=== PATIENT | female | born 1950 | race Caucasian/White ===

== ENCOUNTER 2016-08-23 07:53 | Emergency (ER) | payer OTHER ==
[2016-08-23 09:50] VITALS: BP 154/80
--- NOTE | 2016-08-23 09:57 | UC ---
Fabio Hollingsworth Michael, scribed for Leticia Villanueva DO on 08/23/16 at 0908 . General HPI - HPI Summary HPI Summary: 65 y/o female comes to [facility] presenting with multiple sx that started suddenly one day ago. The pt reports that she has myalgia especially affecting her back and bilateral LE, chills, fatigued, nasal congestion, sinus congestion , and non-productive cough that is not painful. She also states, one week ago, that she suddenly became dizzy, nausea, and diaphoretic. The pt notes that those sx are not currently present. She denies ear ache, n/v/d, and CP. The PMHx is significant for osteoarthritis, DM, and a heart murmur. The pt works at [employer], and her colleagues and students have had sinus infections and influenza. - History of Current Complaint Chief Complaint: UCRespiratory Stated Complaint: SORE THROAT COUGH Time Seen by Provider: 08/23/16 09:04 Hx Obtained From: Patient, Medical Records Onset/Duration: Sudden Onset, Lasting Days, Still Present Timing: Constant Onset Severity: Moderate Current Severity: Moderate Pain Location at: back and bilateral LE Character: ache Associated Signs & Symptoms: Positive: Cough - mild, Headache, Other - negative- ear ache, n/v/d, dizzy, sob and CP positive- myalgia, nasal congestion, chills, fatigued, sinus congestion, non-productive cough.. Negative: Abdominal Pain, Back Pain, Confusion, Chest Pain, Dizziness, Diarrhea, Dysuria, Diaphoresis, Fever, Hematemesis, Nausea, SOB, Vomiting, Wheezing, Weakness - Allergy/Home Medications Allergies/Adverse Reactions: Allergies Allergy/AdvReac Type Severity Reaction Status Date / Time Iodinated Contrast Media Allergy Mild Itching Verified 08/23/16 08:18 [IV CONTRAST DYE] Naproxen [From Anaprox] Allergy Mild Itching Verified 08/23/16 08:18 Penicillins Allergy Mild Itching Verified 08/23/16 08:18 Ibandronic Acid Allergy Unknown Verified 08/23/16 08:18 Reaction Details Home Medications: Home Medications Insulin GLARGINE(*) [Lantus(*)] 60 unit SUBCUT DAILY 08/23/16 [History Confirmed 08/23/16] PMH/Surg Hx/FS Hx/Imm Hx Endocrine History Of: Reports: Diabetes Denies: Thyroid Disease, Hyperthyroidism, Hypothyroidism Cardiovascular History Of: Reports: Cardiac Disorders - HEART MURMUR, Hypertension, Deep Vein Thrombosis Respiratory History Of: Denies: COPD, Asthma GI/ History Of: Reports: Kidney Stones - MANY YEARS AGO X2 Denies: Ulcer Neurological History Of: Denies: TIA, Seizures Psychological History Of: Denies: Anxiety, Depression Cancer History Of: Denies: Breast Cancer - Surgical History Surgical History: Yes Surgery Procedure, Year, and Place: R knee - for torn ligament, damage cartilage (2003) at [facility]. hernia repair. hysterectomy - Family History Known Family History: Positive: Cardiac Disease, Hypertension, Diabetes - Social History Occupation: Employed Full-time Lives: With Family Alcohol Use: None Substance Use Type: None Smoking Status (MU): Former Smoker - Immunization History Most Recent Influenza Vaccination: FEB 2016 Review of Systems Constitutional: Chills, Fatigue Skin: Negative Eyes: Negative ENT: Other - nasal congestion Respiratory: Cough Cardiovascular: Negative Gastrointestinal: Negative Genitourinary: Negative Motor: Negative Neurovascular: Negative Musculoskeletal: Myalgia Neurological: Negative Psychological: Negative All Other Systems Reviewed And Are Negative: Yes Physical Exam Triage Information Reviewed: Yes Appearance: No Pain Distress, Well-Nourished, Ill-Appearing Vital Signs: Initial Vital Signs Temp 99.2 F 08/23/16 08:21 Pulse 80 08/23/16 08:21 Resp 16 08/23/16 08:21 BP 177/75 08/23/16 08:21 Pulse Ox 97 08/23/16 08:21 Vital Signs Reviewed: Yes Eyes: Positive: Conjunctiva Clear, Discharge ENT: Positive: Hearing grossly normal, Pharynx normal, Nasal congestion, Nasal drainage, TMs normal. Negative: Tonsillar swelling, Muffled/hoarse voice Neck: Positive: Supple, Nontender Respiratory: Positive: Lungs clear, Normal breath sounds, No respiratory distress, No accessory muscle use Cardiovascular: Positive: RRR. Negative: No Murmur - holosytolic murmur Musculoskeletal: Positive: Strength Intact Neurological: Positive: Alert, Muscle Tone Normal Psychological Exam: Normal Psychological: Positive: Age Appropriate Behavior Skin Exam: Normal - dry. warm. nml color. Course/Dx - Course Course Of Treatment: pt advised that dizziness nausea and sweating can all be signs of a heart attack. if she has those sx ago, pt should got to ed for evaluation. - Differential Dx - Multi-Symptom Differential Diagnoses: Other - uri Provider Diagnoses: uri Discharge - Discharge Plan Condition: Stable Disposition: HOME Referrals: Santosh Sanford MD [Primary Care Provider] - (follow up in 3-5 days if not improving) The documentation as recorded by the Fabio khan Michael accurately reflects the service I personally performed and the decisions made by , Leticia Villanueva DO.
[2016-08-23] MEDS ORDERED: Acetaminophen TAB* 325 MG PO ONE (09:59)
== END 2016-08-23 10:03 | disposition home or self-care (01) ==
LOC: UCEAST 07:53
DX: J06.9 Acute upper respiratory infection, unspecified (principal); E11.9 Type 2 diabetes mellitus without complications; Z79.4 Long term (current) use of insulin; Z88.6 Allergy status to analgesic agent; Z88.0 Allergy status to penicillin; Z91.041 Radiographic dye allergy status; Z87.891 Personal history of nicotine dependence
CPT/HCPCS: 87502; 99212; A9270-GY; G0463

== ENCOUNTER 2017-04-15 06:39 | Emergency (ER) | payer OTHER ==
[2017-04-15] MEDS ORDERED: NS 0.9% 1000 ML* 1,000 ML IV ONE (07:39)
[2017-04-15 08:01] LABS: Hematocrit 39 % (35-47); Mean Corpuscular HGB Conc 33 g/dl (31-36); Mean Corpuscular Hemoglobin 30 pg (27-31); Mean Corpuscular Volume 90 fL (80-97); Mean Platelet Volume 8 um3 (7.4-10.4); Red Blood Count 4.36 10^6/ul (4.0-5.4); Red Cell Distribution Width 12 % (10.5-15); White Blood Count 9.7 10^3/ul (3.5-10.8)
[2017-04-15 08:23] LABS: Albumin 3.6 g/dL (3.2-5.2); BUN/Creatinine Ratio 17.5 (8-20); C Reactive Protein 157.44 mg/L (< 5.00); Calcium 9.5 mg/dL (8.6-10.3); EGFR African American 120.9 (>60); Globulin 3.6 g/dL (2-4); Magnesium 1.9 mg/dL (1.9-2.7); Potassium 3.9 mmol/L (3.5-5.0); Total Bilirubin 0.5 mg/dL (0.2-1.0); Total Protein 7.2 g/dL (6.4-8.9)
--- NOTE | 2017-04-15 08:46 | RAD ---
HISTORY: Weakness COMPARISONS: May 02, 2013 VIEWS: 4: Frontal dual-energy and lateral views of the chest. FINDINGS: CARDIOMEDIASTINAL SILHOUETTE: The cardiomediastinal silhouette is normal. PIPE: The pipe are normal. PLEURA: The costophrenic angles are sharp. No pleural abnormalities are noted. LUNG PARENCHYMA: The lungs are clear. ABDOMEN: The upper abdomen is clear. There is no subphrenic gas. BONES AND SOFT TISSUES: No bone or soft tissue abnormalities are noted. OTHER: None. IMPRESSION: NO ACTIVE CARDIOPULMONARY DISEASE.
[2017-04-15] MEDS ORDERED: Insulin REGULAR(*) 1 UNITS UNIT IV PUSH ONE (09:47)
[2017-04-15] MEDS ORDERED: Insulin REGULAR(*) 1 UNITS UNIT ONE (10:21)
[2017-04-15] MEDS: NS 0.9% 1000 ML* 2,000 ML IV ONE (10:26)
[2017-04-15 11:08] LABS: Urine Bacteria 1+ (Absent); Urine Bilirubin Negative (Negative); Urine Glucose 3+(>=500 mg/dL) (Negative); Urine Nitrite Negative (Negative)
[2017-04-15 11:46] VITALS: BP 133/45
--- NOTE | 2017-04-15 18:46 | ED ---
Marco Hollingsworth Thomas, scribed for Mark Dumas MD on 04/15/17 at 0742 . Complex/Multi-Sys Presentation - HPI Summary HPI Summary: The pt is a 66 y/o F presenting to the ED c/o generalized weakness that began a week ago. She also complains of bilateral foot pain concentrated about her heels that began a week ago. This pain is worsened with ambulation and she reports I have nerve damage. The pain is rated 10/10. A week ago, the patient was seen at the [facility] and was given gabapentin, naproxen, and fioricet. The patient says she stopped taking these medications at some time in the last week. She reports a Naproxen allergy. PMHx includes DM and her blood sugars have recently been elevated. Pt additionally c/o chills, back pain, and diarrhea (one episode two days ago). Pt denies cough, rhinorrhea, sore throat, and dysuria. - History Of Current Complaint Chief Complaint: EDGeneral Time Seen by Provider: 04/15/17 07:27 Hx Obtained From: Patient Onset/Duration: Lasting Weeks - onset of symptoms one week ago, Still Present Timing: Constant Severity Currently: Moderate Location: Pain At: - bilateral feet Aggravating Factor(s): foot pain is worsened with ambulation Alleviating Factor(s): nothing alleviates symptoms Associated Signs And Symptoms: Positive: Weakness - generalized, Diarrhea, Back Pain, Other - Bilateral foot pain, elevated blood sugars, chills; NEGATIVE: rhinorrhea, sore throat.. Negative: Cough, Dysuria - Allergies/Home Medications Allergies/Adverse Reactions: Allergies Allergy/AdvReac Type Severity Reaction Status Date / Time Iodinated Contrast Media Allergy Mild Itching Verified 08/23/16 08:18 [IV CONTRAST DYE] Naproxen [From Anaprox] Allergy Mild Itching Verified 08/23/16 08:18 Penicillins Allergy Mild Itching Verified 08/23/16 08:18 Ibandronic Acid Allergy Unknown Verified 08/23/16 08:18 Reaction Details PMH/Surg Hx/FS Hx/Imm Hx Previously Healthy: No Endocrine/Hematology History: Reports: Hx Diabetes Denies: Hx Thyroid Disease Cardiovascular History: Reports: Hx Deep Vein Thrombosis, Hx Hypertension, 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 CHECKED ANNUALLY Denies: Hx Hypercholesterolemia, Hx Peripheral Vascular Disease Respiratory History: Denies: Hx Asthma, Hx Chronic Obstructive Pulmonary Disease (COPD), Other Respiratory Problems/Disorders GI History: Reports: Hx Gastroesophageal Reflux Disease Denies: Hx Ulcer, Other GI Disorders History: Reports: Hx Kidney Stones - MANY YEARS AGO X2 Musculoskeletal History: Denies: Hx Arthritis, Hx Osteoporosis, Other Musculoskeletal History Sensory History: Denies: Hx Cataracts, Hx Contacts or Glasses, Hx Glaucoma, Hx Hearing Aid Opthamlomology History: Denies: Hx Cataracts, Hx Contacts or Glasses, Hx Glaucoma Neurological History: Denies: Hx Headaches, Hx Seizures, Hx Transient Ischemic Attacks (TIA), Other Neuro Impairments/Disorders Psychiatric History: Denies: Hx Anxiety, Hx Depression - Cancer History Hx Chemotherapy: No Hx Radiation Therapy: No - Surgical History Surgery Procedure, Year, and Place: R knee - for torn ligament, damage cartilage (2003) at [facility]. hernia repair. hysterectomy Hx Anesthesia Reactions: No Infectious Disease History: No Infectious Disease History: Denies: Hx Clostridium Difficile, Hx Hepatitis, Hx Human Immunodeficiency Virus (HIV), Hx of Known/Suspected MRSA, Hx Shingles, Hx Tuberculosis, Hx Known/ Suspected VRE, Hx Known/Suspected VRSA, History Other Infectious Disease, Traveled Outside the [place] in Last 30 Days - Family History Known Family History: Positive: Cardiac Disease, Hypertension, Diabetes - Social History Alcohol Use: None Hx Substance Use: No Substance Use Type: Reports: None Hx Tobacco Use: Yes Smoking Status (MU): Former Smoker Review of Systems Positive: Chills Negative: Sore Throat, Nasal Discharge Negative: Cough Positive: Diarrhea Negative: dysuria Positive: Other - Bilateral foot pain, back pain Positive: Weakness - generalized All Other Systems Reviewed And Are Negative: Yes Physical Exam - Summary Physical Exam Summary: VITAL SIGNS: Reviewed. GENERAL: Patient is a well-developed and nourished female who is lying comfortable in the stretcher. Patient is not in any acute respiratory distress. HEAD AND FACE: No signs of trauma. No ecchymosis, hematomas or skull depressions. No sinus tenderness. EYES: PERRLA, EOMI x 2, No injected conjunctiva, no nystagmus. EARS: Hearing grossly intact. Ear canals and tympanic membranes are within normal limits. MOUTH: Oropharynx within normal limits. NECK: Supple, trachea is midline, no adenopathy, no JVD, no carotid bruit, no c- spine tenderness, neck with full ROM. CHEST: Symmetric, no tenderness at palpation LUNGS: Clear to auscultation bilaterally. No wheezing or crackles. CVS: Regular rate and rhythm, S1 and S2 present, no murmurs or gallops appreciated. ABDOMEN: Soft, non-tender. No signs of distention. No rebound no guarding, and no masses palpated. Bowel sounds are normal. EXTREMITIES: FROM in all major joints, no edema, no cyanosis or clubbing. NEURO: Alert and oriented x 3. No acute neurological deficits. Speech is normal and follows commands. SKIN: Dry and warm Triage Information Reviewed: Yes Vital Signs On Initial Exam: Initial Vitals Temp Pulse Resp BP Pulse Ox 98.5 F 95 16 139/59 97 04/15/17 06:48 04/15/17 06:48 04/15/17 06:48 04/15/17 06:48 04/15/17 06:48 Vital Signs Reviewed: Yes - [place] Coma Scale Coma Scale Total: 15 Diagnostics - Vital Signs Vital Signs Temp Pulse Resp BP Pulse Ox 04/15/17 06:48 98.5 F 95 16 139/59 97 - Laboratory Result Diagrams: 04/15/17 07:48 04/15/17 07:48 Lab Statement: Any lab studies that have been ordered have been reviewed, and results considered in the medical decision making process. - Radiology CXR Xray Interpretation: No Acute Changes - No active cardiopulmonary disease. ED physician has reviewed this report and agrees. Radiology Interpretation Completed By: Radiologist - EKG 08:05 Cardiac Rate: NL - 96 BPM EKG Rhythm: Sinus Rhythm EKG Interpretation: Normal axis. Complex Multi-Symp Course/Dx Assessment/Plan: The pt is a 66 y/o F presenting to the ED c/o generalized weakness that began a week ago. She also complains of bilateral foot pain concentrated about her heels that began a week ago. This pain is worsened with ambulation and she reports I have nerve damage. The pain is rated 10/10. A week ago, the patient was seen at the [facility] ED and was given gabapentin, naproxen, and fioricet. The patient says she stopped taking these medications at some time in the last week. She reports a Naproxen allergy. PMHx includes DM and her blood sugars have recently been elevated. Pt additionally c/o chills, back pain, and diarrhea (one episode two days ago). Pt denies cough, rhinorrhea , sore throat, and dysuria. Test results are without significant abnormality except glucose 401, CRP 157.44. UA is contaminated. In the ED course, the patient was given approximately 3L of fluids, 10 units of insulin, and the sugar decreased to 216. At this point, the patient reports feeling better and her symptoms have resolved. Therefore, at this time she will be discharged home with follow up by primary care. The patient is hemodynamically stable and alert and oriented x 3. - Diagnoses Provider Diagnoses: Weakness, Hyperglycemia Discharge - Discharge Plan Condition: Stable Disposition: HOME Patient Education Materials: Weakness (ED), Diabetic Hyperglycemia (ED) Forms: *Work Release Referrals: Santosh Sanford MD [Primary Care Provider] - 3 Days Additional Instructions: Follow up with your primary care provider in 2-3 days. Return to the emergency department for any new or worsening symptoms. The documentation as recorded by the Marco khan Thomas accurately reflects the service I personally performed and the decisions made by , Mark Dumas MD.
--- NOTE | 2017-04-18 08:56 | ED ---
Progress - Progress Note Progress Note: Pt's urine cx reveals >100,000 strep group B. Note yesterday from Nuria Fung PA-C reveals multiple attempts to contact pt at home to notify her bactrim had been sent to her pharmacy. (Pt has PCN allergy so this is best alternative and pt's renal fxn is intact). Pt's d/c summary reveals f/u w/ PCP was initiated - results should be forwarded to PCP is pt signed release. Will also mail letter to pt's house. Melinda animal warden, aware. Course/Dx - Diagnoses Provider Diagnoses: Weakness, Hyperglycemia
== END 2017-04-15 13:19 | disposition home or self-care (01) ==
LOC: ED 06:39
DX: R53.1 Weakness (principal); E11.65 Type 2 diabetes mellitus with hyperglycemia; R19.7 Diarrhea, unspecified; M54.9 Dorsalgia, unspecified; Z86.79 Personal history of other diseases of the circulatory system
CPT/HCPCS: 36415; 71020; 80053; 81003; 81015; 82947; 83735; 85025; 86140; 87077; 87086; 93005; 96360; 99283

== ENCOUNTER 2019-01-03 13:18 | Emergency (ER) | payer OTHER ==
[2019-01-03] MEDS ORDERED: NS 0.9% 1000 ML** 1,000 ML IV ONE ×2 (14:05→15:05)
--- NOTE | 2019-01-03 14:14 | ED ---
Complex/Multi-Sys Presentation - HPI Summary HPI Summary: 68 year old F brought in by ambulance to [facility] from Dr. Sanford's office with a chief complaint of light headedness and hyperglycemia since near syncopal episode this morning. Patient states that she again felt lightheaded while in the restroom. No chest pain or shortness of breath, no dizziness. Patient did not pass out. Patient additionally reports generalized fatigue. Patient reports recent weight loss (less than 10 pounds). She also reports she has a history of chronic UTIs although she denies dysuria, abdominal pain or fevers at this time . Patient has Hx diabetes for which she is taking 42 Lantus at night and 15 lispro three times a day after meals. Patient states her blood glucose levels are normally 400. Last year, patient was admitted to [facility] for multiple infections including a UTI. Patient normally uses a walker or cane. - History Of Current Complaint Chief Complaint: EDDiabeticProb Time Seen by Provider: 01/03/19 14:02 Hx Obtained From: Patient Onset/Duration: Lasting Hours, Still Present Timing: Constant Severity Currently: None Aggravating Factor(s): None Alleviating Factor(s): None Associated Signs And Symptoms: Positive: Other - weakness and heaviness in bilateral legs, recent weight loss; NEGATIVE: chest pain, shortness of breath, dysuria, vomiting, cough - Allergies/Home Medications Allergies/Adverse Reactions: Allergies Allergy/AdvReac Type Severity Reaction Status Date / Time Iodinated Contrast- Oral and Allergy Rash Verified 01/03/19 14:08 IV Dye naproxen Allergy Rash Verified 01/03/19 14:08 Penicillins Allergy Rash Verified 01/03/19 14:08 ibandronic acid Allergy Unknown Uncoded 01/03/19 14:09 Reaction Details Home Medications: Home Medications Docusate CAP* [Colace Cap*] 100 mg PO BID PRN 01/03/19 [History Confirmed ] Gabapentin CAP(*) [Neurontin 300 CAP(*)] 300 mg PO TID 01/03/19 [History Confirmed 01/03/19] Ramipril CAP* [Altace CAP*] 20 mg PO DAILY 01/03/19 [History Confirmed 01/03/19] Sertraline* [Zoloft*] 25 mg PO QAM 01/03/19 [History Confirmed 01/03/19] Simvastatin (NF) [Zocor (NF)] 40 mg PO DAILY 01/03/19 [History Confirmed ] PMH/Surg Hx/FS Hx/Imm Hx Endocrine/Hematology History: Reports: Hx Diabetes Denies: Hx Thyroid Disease Cardiovascular History: Reports: Hx Deep Vein Thrombosis, Hx Hypertension, 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 CHECKED ANNUALLY Denies: Hx Hypercholesterolemia, Hx Peripheral Vascular Disease Respiratory History: Denies: Hx Asthma, Hx Chronic Obstructive Pulmonary Disease (COPD), Other Respiratory Problems/Disorders GI History: Reports: Hx Gastroesophageal Reflux Disease Denies: Hx Ulcer, Other GI Disorders History: Reports: Hx Kidney Stones - MANY YEARS AGO X2, Other Problems/ Disorders - UTI Musculoskeletal History: Denies: Hx Arthritis, Hx Osteoporosis, Other Musculoskeletal History Sensory History: Denies: Hx Cataracts, Hx Contacts or Glasses, Hx Glaucoma, Hx Hearing Aid Opthamlomology History: Denies: Hx Cataracts, Hx Contacts or Glasses, Hx Glaucoma Neurological History: Denies: Hx Headaches, Hx Seizures, Hx Transient Ischemic Attacks (TIA), Other Neuro Impairments/Disorders Psychiatric History: Denies: Hx Anxiety, Hx Depression - Cancer History Hx Chemotherapy: No Hx Radiation Therapy: No - Surgical History Surgery Procedure, Year, and Place: R knee - for torn ligament, damage cartilage (2003) at [facility]. hernia repair. hysterectomy Hx Anesthesia Reactions: No Infectious Disease History: No Infectious Disease History: Denies: Hx Clostridium Difficile, Hx Hepatitis, Hx Human Immunodeficiency Virus (HIV), Hx of Known/Suspected MRSA, Hx Shingles, Hx Tuberculosis, Hx Known/ Suspected VRE, Hx Known/Suspected VRSA, History Other Infectious Disease, Traveled Outside the [place] in Last 30 Days - Family History Known Family History: Positive: Cardiac Disease, Hypertension, Diabetes - Social History Alcohol Use: None Hx Substance Use: No Substance Use Type: Reports: None Hx Tobacco Use: Yes Smoking Status (MU): Smoker, Current Status Unknown Have You Smoked in the Last Year: No Review of Systems Positive: Other - hyperglycemia. Negative: Chest Pain Negative: Shortness Of Breath, Cough Positive: Other. Negative: Vomiting Negative: dysuria Neurological: Negative, Other All Other Systems Reviewed And Are Negative: Yes Physical Exam - Summary Physical Exam Summary: Constitutional: Elderly female no acute distress Skin: Warm, Dry HENT: Normocephalic; Atraumatic, dry mucous membranes Eyes: Conjunctiva normal Neck: Musculoskeletal ROM normal neck. (-) JVD, (-) Stridor Cardio: Rhythm regular, rate normal, Heart sounds normal; Intact distal pulses; Radial pulses are 2+ and symmetric. (-) Murmur Pulmonary/Chest wall: Effort normal. (-) Respiratory distress, (-) Wheezes, (-) Rales Abd: Soft, (-) tenderness, (-) Distension, (-) Guarding, (-) Rebound Musculoskeletal: Trace swelling of the right lower extremity which she reports is chronic Lymph: (-) Cervical adenopathy Neuro: Alert, Oriented x3 Psych: Mood and affect Normal Vital Signs On Initial Exam: Initial Vitals Temp Pulse Resp BP Pulse Ox 98.9 F 85 15 124/73 93 01/03/19 13:32 01/03/19 13:32 01/03/19 13:32 01/03/19 13:32 01/03/19 13:32 Diagnostics - Vital Signs Vital Signs Temp Pulse Resp BP Pulse Ox 01/03/19 13:32 98.9 F 85 15 124/73 93 - Laboratory Result Diagrams: 01/03/19 14:16 01/03/19 14:16 Lab Statement: Any lab studies that have been ordered have been reviewed, and results considered in the medical decision making process. - EKG 1507 Cardiac Rate: NL - 79 BPM EKG Rhythm: Sinus Rhythm Summary of EKG Findings: An EKG at 15:07 reveals normal sinus rhythm [address] depressions slightly increased in V4, V5, V6 with new T waves inversions in V5, V6, II compared to previous EKG on 04/15/17. 1750 Cardiac Rate: NL - 82 BPM EKG Rhythm: Sinus Rhythm Summary of EKG Findings: Unchanged from previous EKG 01/03/19 15:07 Re-Evaluation - Re-Evaluation First Eval Re-Evaluation Time: 15:06 Comment: glucose is 483. normal gap and pH. do not suspect DKA. plan for second liter of fluids and 5 of insulin Second Eval Re-Evaluation Time: 17:20 Comment: Urine is suggestive of UTI. Will treat her with Keflex Complex Multi-Symp Course/Dx Course Of Treatment: 68-year-old female with poorly controlled diabetes as well as recurrent UTIs presents with fatigue and hyperglycemia. - Initial blood glucose greater than 400 plan for IV fluids check beta hydroxybutyrate and ABG and check urinalysis for source of infection. - Regarding fatigue will check EKG troponin CBC and CMP have her suspect this is secondary to either an infectious cause such as a UTI or her hyperglycemia. -Patient has follow-up with her doctor regarding her insulin which they are in the process of changing as she is brittle and has episodes hypo-and hyperglycemia therefore if we are able to get her blood sugar controlled here, I do not plan on changing her regimen - Diagnoses Provider Diagnoses: Hyperglycemia, Urinary tract infection Discharge - Sign-Out/Discharge Documenting (check all that apply): Patient Departure - Discharge Patient Received Moderate/Deep Sedation with Procedure: No - Discharge Plan Condition: Stable Disposition: HOME Prescriptions: Cephalexin CAP* [Keflex CAP*] 500 mg PO BID 5 Days #10 cap Patient Education Materials: Urinary Tract Infection in Women (ED), Diabetic Hyperglycemia (ED) Forms: *Work Release Referrals: Santosh Sanford MD [Primary Care Provider] - 2 Days Additional Instructions: Follow up with your primary care provider in 2 days. Call your junior art director tomorrow 01/04/19 regarding your blood sugar. Return to the Emergency Department for fever, worsening abdominal pain, or if you are concerned. - Billing Disposition and Condition Condition: STABLE Disposition: Home - Attestation Statements Document Initiated by Maureen: Yes Documenting Scribe: Marisa Mays Provider For Whom Maureen is Documenting (Include Credential): Joe Samano MD Scribe Attestation: I, Marisa Mays, scribed for Joe Samano MD on 01/03/19 at 2225. Scribe Documentation Reviewed: Yes Provider Attestation: The documentation as recorded by the Marisa khan accurately reflects the service I personally performed and the decisions made by me, Joe Samano MD Status of Scrleonor Document: Viewed
[2019-01-03 14:26] LABS: ABS Eosinophils 0.1 10^3/ul (0-0.6); ABS Lymphocytes 1.9 10^3/ul (1.0-4.8); ABS Monocytes 0.6 10^3/ul (0-0.8); ABS Neutrophils 4.6 10^3/ul (1.5-7.7); Eosinophil % 0.7 %; Hematocrit 37 % (35-47); Hemoglobin 12.7 g/dL (12.0-16.0); Lymphocyte % 26.5 %; Mean Corpuscular HGB Conc 34 g/dL (31-36); Mean Corpuscular Hemoglobin 31 pg (27-31); Mean Corpuscular Volume 89 fL (80-97); Mean Platelet Volume 7.5 fL (7.4-10.4); Platelet Count 279 10^3/uL (150-450); Red Blood Count 4.17 10^6 /uL (3.70-4.87); Red Cell Distribution Width 13 % (10-15); White Blood Count 7.2 10^3/uL (3.5-10.8)
[2019-01-03 14:44] LABS: Albumin 3.8 g/dL (3.2-5.2); Albumin/Globulin Ratio 1.3 (1-3); BUN/Creatinine Ratio 26.1 (8-20); Calcium 9.4 mg/dL (8.6-10.3); EGFR African American 101.8 (>60); EGFR Non-African American 84.1 (>60); Globulin 2.9 g/dL (2-4); Potassium 4.3 mmol/L (3.5-5.0); Total Bilirubin 0.6 mg/dL (0.2-1.0); Total Protein 6.7 g/dL (6.4-8.9); Troponin I 0.02 ng/mL (<0.04)
[2019-01-03] MEDS ORDERED: Insulin REGULAR(*) 1 UNITS UNIT SUBCUT ONE ×2 (15:05→16:29)
[2019-01-03 17:09] LABS: Urine Appearance Turbid; Urine Bacteria 1+ (Absent); Urine Bilirubin Negative (Negative); Urine Blood 1+ (Negative); Urine Color Yellow; Urine Glucose 3+(>=500 mg/dL) (Negative); Urine Ketones Negative (Negative); Urine Nitrite Positive (Negative); Urine Protein Negative (Negative); Urine Red Blood Cell 3+(>10/hpf) (Absent); Urine Specific Gravity 1.015 (1.010-1.030); Urine Squamous Epithelial Cell Present (Absent); Urine Urobilinogen Negative (Negative); Urine White Blood Cell 3+(>20/hpf) (Absent)
[2019-01-03] MEDS ORDERED: Cephalexin CAP* 500 MG PO ONE (17:25)
[2019-01-03 18:28] VITALS: BP 150/74
--- NOTE | 2019-01-05 05:58 | PN ---
Progress Note - Progress Note Date of Service: 01/05/19 Note: patient urine culture grew Klebsiella pneumonia >100,000. patient was placed on keflex.
--- NOTE | 2019-01-06 06:01 | PN ---
Progress Note - Progress Note Date of Service: 01/06/19 Note: Patient's urine culture grew Klebsiella. Patient was on Keflex which is sensitive to. No further action required.
== END 2019-01-03 18:27 | disposition home or self-care (01) ==
LOC: ED 13:18
DX: E11.65 Type 2 diabetes mellitus with hyperglycemia (principal); N39.0 Urinary tract infection, site not specified; I10 Essential (primary) hypertension; K21.9 Gastro-esophageal reflux disease without esophagitis; I38 Endocarditis, valve unspecified; Z88.0 Allergy status to penicillin; Z88.8 Allergy status to other drugs, medicaments and biological substances; Z91.041 Radiographic dye allergy status; Z79.899 Other long term (current) drug therapy; Z79.4 Long term (current) use of insulin
CPT/HCPCS: 36415; 80053; 81003; 81015; 82010; 82803; 84484; 85025; 87077; 87086; 87186; 93005; 96360; 96361; 99284; A9270-GY

== ENCOUNTER 2019-05-04 17:36 | Emergency (ER) | payer OTHER ==
--- OUTSIDE RECORDS SUMMARY | 2019-05-04 18:09 | XMS REPORT | Continuity of Care Document ---
:1950 External Reference #:[id number] Author Name AARON Hong Address [address] [place] [address] Care Team Providers Name Role Phone Maria G Best M.D. - Family Care Team Information Appliance Repairer Medicine Santosh Sanford MD - Family Medicine Care Team Information Appliance Repairer Joy Cardiology - Cardiovascular Care Team Information Appliance Repairer Disease Arnel Talbot MD - Orthopaedic Care Team Information Appliance Repairer Surgery Kristin Cooper MD - Sports Medicine Care Team Information Appliance Repairer [phone] Oskar Meraz - Urology Care Team Information Appliance Repairer [phone] Ronan Mcgee MD - Cardiovascular Care Team Information Appliance Repairer [phone] Disease Harmony Barahona DISH CARRIER - Primary Care Care Team Information Appliance Repairer [phone] Poncho Santillan MD - Gastroenterology Care Team Information Appliance Repairer Arvind Horne - Endocrinology, Diabetes & Care Team Information Appliance Repairer Metabolism Ki Michel MD - Orthopaedic Care Team Information Appliance Repairer Surgery Problems Active Problems Provider Date Type 2 diabetes mellitus Maria G Best M.D. 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 Onset: 05/04/2011 Aortic valve disorder Maria G Best M.D. Onset: 07/27/2011 Acute sinusitis Maria G Best M.D. Onset: 07/27/2011 Acute sinusitis Og Dow M.D. Onset: 08/05/2011 Adult health examination Maria G Best M.D. Onset: 12/16/2011 Gynecologic examination Maria G Best M.D. Onset: 12/16/2011 Hyperlipidemia Maria G Best M.D. Onset: 12/28/2011 Type 1 diabetes mellitus uncontrolled Santosh Sanford M.D. Onset: 03/06/2013 Gastroesophageal reflux disease Santosh Sanford M.D. Onset: 03/06/2013 Type II diabetes mellitus uncontrolled Santosh Sanford M.D. Onset: 2012 Depressive disorder Santosh Sanford M.D. Onset: 08/10/2013 Osteoporosis Eddie Wilson M.D. Onset: 07/31/2014 Atherosclerosis of artery Santosh Sanford M.D. Onset: 08/13/2014 Social History Type Date Description Comments Sex Unknown Tobacco Use Start: Unknown End: Former Cigarette Smoker 2 Quit in 1991 Unknown Packs Daily ETOH Use Never used alcohol Recreational Drug Use Denies Drug Use Tobacco Use Start: Unknown End: Patient is a former smoker Unknown Smoking Status Reviewed: 03/15/19 Patient is a former smoker Allergies, Adverse Reactions, Alerts Active Allergies Reaction Severity Comments Date Penicillin 09/20/1997 Anaprox rash 03/26/1999 Dye 05/05/2000 Ibandronic Acid Severe dizziness 08/13/2014 Medications Active Medications SIG Qnty Indications Ordering Date Provider Ozempic (0.25 Or 0.5 Samples given E10.65 Santosh Garza MG/Dose) Georgie Sanford 9 2mg/1.5ML Solution Pen-Inject Freestyle Lite Blood dx: e11.9 - check 1units Santosh Garza Glucose Monitoring blood sugar three Georgie Sanford 8 System times daily - Device last seen 08/18/17 Freestyle Lite Test dx: e11.9 - check 100units Santosh A. Strips blood sugar three Georgie Sanford 8 times daily - last seen 08/18/17 Docusate Sodium 1 by mouth twice 60caps K59.00 Tamiko 100mg a day as needed Kathe, STEAM ROOM ATTENDANT 7 Capsules constipation Lantus Solostar 60 units subq at 15units E10.65 Tamiko 100Unit/ML hs or as directed Kathe, STEAM ROOM ATTENDANT 7 Solution Pen-Inject for dose titration Pen Fabius 11/03" [id number] use 100units E10. [place] A. 31G X 8 mm with eliseo Sanford M.D. 6 Misstacy kwikpen three times daily or as directed Dx: E10. Lancets Ultra Fine test qid 1Box E10. [place] A. Miguel Sanford M.D. 6 Humalog Kwikpen 25 units three 1box E10.65 Tamiko 100Unit/ML times a day Kathe, STEAM ROOM ATTENDANT 5 Solution Pen-Inject before meals Hydrochlorothiazide 1 by mouth every 30tabs I10 Tamiko 25mg day Kathe, STEAM ROOM ATTENDANT 5 Tablets Simvastatin 1 by mouth every 30tabs Z13.220 Tamiko 40mg Tablets day Kathe, STEAM ROOM ATTENDANT 4 Sertraline HCL 1 by mouth every 30tabs F32.9 Tamiko 25mg Tablets morning Kathe, STEAM ROOM ATTENDANT 3 Ramipril take 2 capsules 60caps I10 Tamiko 10mg Capsules by mouth once Kathe, STEAM ROOM ATTENDANT 1 daily Pioglitazone HCL 1 by mouth every 90tabs [place] A. 15mg Tablets day Georgie Sanford 0 Omeprazole 1 by mouth every Unknown [address] day 0 Immunizations CPT Code Status Date Vaccine Lot # [id number] Given 02/10/2018 High-Dose, Influenza Virus Vacccine-fluzone 65 and older 37593 Given 02/28/2017 Influenza Vac, Quadriv[place], [place] [address] Given 03/06/2016 High-Dose, Influenza Virus Vacccine-fluzone 65 and older 95099 Given 02/05/2015 Zostivax 44908 Given 02/05/2015 High-Dose, Influenza Virus Vacccine-fluzone 65 and older 10497 Given 03/07/2013 DO Not Use Split Influenza Virus Vaccine 05443 Given 04/21/2012 DO Not Use Split Influenza Virus Vaccine [id number] 83596 Given 12/16/2011 Tdap Tetanus, W Pertussis [id number] 18123 Given 03/09/2011 DO Not Use Split Influenza Virus Vaccine 71337 Given 03/09/2011 DO Not Use Split Influenza Virus Vaccine [id number] 77150 Given 03/03/2010 DO Not Use Split Influenza Virus Vaccine [id number] 81056 Given 03/03/2010 Pneumococcal Immunization [id number] 45305 Given 07/26/2009 DO Not Use Split Influenza Virus Vaccine [id number] 13962 Given 06/10/2009 H1N1 Virus Vaccine [id number] 14057 Given 06/10/2009 H1N1 Immunization Intramuscular/Intranasal W Counseling 42148 Given 03/23/2008 DO Not Use Split Influenza Virus Vaccine [id number] 07877 Given 05/04/2007 DO Not Use Split Influenza Virus Vaccine [id number] 63163 Given 05/04/2007 DO Not Use Split Influenza Virus Vaccine [id number] 44958 Given 05/11/2005 Pneumococcal Immunization 85053 Given 05/11/2005 DO Not Use Split Influenza Virus Vaccine Vital Signs Date Vital Result Comment 03/15/2019 1:19pm BP Systolic 118 mmHg BP Diastolic 70 mmHg Heart Rate 96 /min Body Temperature 98.9 F Respiratory Rate 16 /min Height 63.5 inches 5'3.50" measured Weight 118.00 lb BMI (Body Mass Index) 20.6 kg/m2 01/31/2019 11:12am BP Systolic 140 mmHg BP Diastolic 82 mmHg Heart Rate 80 /min Body Temperature 97.9 F Respiratory Rate 24 /min O2 % BldC Oximetry 98 % Height 63.5 inches 5'3.50" measured Weight 125.00 lb BMI (Body Mass Index) 21.8 kg/m2 Results Test Date Facility Test Result H/L Range Note Laboratory test 03/15/2019 [facility] Hemoglobin A1c 14.5 % High 4.1 -5.7 finding (607)- - ([facility]) Laboratory test 01/03/2019 [facility] Point of Care 235 mg/dL High 70-100 1 finding Glucose Laboratory test 01/03/2019 [facility] Point of Care 325 mg/dL High 70-100 2 finding Glucose Urinalysis 01/03/2019 [facility] Urine Color Yellow Profile Urine Appearance Turbid Urine Specific [employer] 1.015 Normal 1.010-1.030 Urine pH 7.0 Normal 5-9 Urine Urobilinogen Negative Negative Urine Ketones Negative Negative Urine Protein Negative Negative Urine Leukocytes 3+ Abnormal Negative Urine Blood 1+ Abnormal Negative Urine Nitrite Positive Abnormal Negative Urine Bilirubin Negative Negative Urine Glucose 3+(>=500 mg/dL) Abnormal Negative Urine White Blood Cell 3+(>20/hpf) Abnormal Absent Urine Red Blood Cell 3+(>10/hpf) Abnormal Absent Urine Bacteria 1+ Abnormal Absent Urine Squamous Epithelial Cell Present Abnormal Absent Urine Culture And 01/03/2019 [facility] Urine Culture SEE RESULT 3 Sensitivities BELOW CBC Auto Diff 01/03/2019 [facility] White Blood 7.2 10^3/uL Normal 3.5-10.8 Count Red Blood Count 4.17 10^6/uL Normal 3.70-4.87 Hemoglobin 12.7 g/dL Normal 12.0-16.0 Hematocrit 37 % Normal 35-47 Mean Corpuscular Volume 89 fL Normal 80-97 Mean Corpuscular Hemoglobin 31 pg Normal 27-31 Mean Corpuscular HGB Conc 34 g/dL Normal 31-36 Red Cell Distribution Width 13 % Normal 10-15 Platelet Count 279 10^3/uL Normal 150-450 Mean Platelet Volume 7.5 fL Normal 7.4-10.4 Abs Neutrophils 4.6 10^3/uL Normal 1.5-7.7 Abs Lymphocytes 1.9 10^3/uL Normal 1.0-4.8 Abs Monocytes 0.6 10^3/uL Normal 0-0.8 Abs Eosinophils 0.1 10^3/uL Normal 0-0.6 Abs Basophils 0.0 10^3/uL Normal 0-0.2 Abs Nucleated RBC 0.0 10^3/uL Granulocyte % 64.4 % Lymphocyte % 26.5 % Monocyte % 7.8 % Eosinophil % 0.7 % Basophil % 0.6 % Nucleated Red Blood Cells % 0.0 Comp Metabolic Panel 01/03/2019 [facility] Sodium 128 mmol/L Low 135-145 Potassium 4.3 mmol/L Normal 3.5-5.0 Chloride 92 mmol/L Low 101-111 Co2 Carbon Dioxide 30 mmol/L Normal 22-32 Anion Gap 6 mmol/L Normal 2-11 Glucose 483 mg/dL High 70-100 Blood Urea Nitrogen 18 mg/dL Normal 6-24 Creatinine 0.69 mg/dL Normal 0.51-0.95 BUN/Creatinine Ratio 26.1 High 8-20 Calcium 9.4 mg/dL Normal 8.6-10.3 Total Protein 6.7 g/dL Normal 6.4-8.9 Albumin 3.8 g/dL Normal 3.2-5.2 Globulin 2.9 g/dL Normal 2-4 Albumin/Globulin Ratio 1.3 Normal 1-3 Total Bilirubin 0.60 mg/dL Normal 0.2-1.0 Alkaline Phosphatase 124 U/L High 34-104 Alt 14 U/L Normal 7-52 Ast 11 U/L Low 13-39 Egfr Non- 84.1 >60 Egfr 101.8 >60 4 Laboratory test finding 01/03/2019 [facility] Troponin I 0.02 ng/mL <0.04 5 Venous Blood Gas 01/03/2019 [facility] Venous Blood pH 7.43 Normal 7.32-7.43 Venous Pco2 50 mmHg Normal 41-51 Venous Po2 46.0 mmHg High 35-45 Venous O2 Saturation 78.5 % Normal 70-80 Venous Blood Base Excess 7.5 mmol/L High 0.0-4.0 6 Venous Bicarbonate Hco3 30.2 mmol/L High 24-28 Laboratory test 01/03/2019 [facility] Beta Hydroxy 0.2 mmol/L <0.4 7 finding Butyrate Comprehensive 11/28/2018 Pearce Venus(fma) Sodium 131 mEq/L Low 134- 149 Metabolic Prof Potassium 4.0 mEq/L 3.6-5.5 Chloride 91 mEq/L Low 94-112 Carbon Dioxide 26 mEq/L 21-32 Glucose 438 mg/dL High 70-105 8 BUN 20 mg/dL 6-26 Creatinine 0.6 mg/dL 0.6-1.4 BUN/Creat Ratio 33.3 CALC 8.0-36.0 Calcium 8.6 mg/dL 8.6-10.2 Total Protein 6.2 g/dL Low 6.4-8.3 Albumin 3.9 g/dL 3.8-5.5 Globulin 2.3 g/dL 2.0-4.8 A/G Ratio 1.7 CALC 0.6-2.3 Alk. Phosphatase 121 U/L High 30-110 9 Alt (SGPT) 13 U/L 7-35 Ast (Sgot) 9 U/L 5-34 Total Bilirubin 0.5 mg/dL 0.2-1.3 GFR Non- >60 ml/min/1.73m^ >=60 GFR >60 ml/min/1.73m^ >=60 Lipid Profile 11/28/2018 Ramses Venus([facility]) Cholesterol 149 mg/dL 120- 200 Triglycerides 117 mg/dL 30-200 HDL Cholesterol 49 mg/dL 30-85 LDL (Calculated) 77 CALC 0-129 VLDL Cholesterol 23 mg/dL 0-50 HDL Risk Factor 3.0 CALC 0.0-4.4 CBC Electronic a 11/28/2018 Ramses Donovan([facility]) WBC 5.6 x10^3/UL 4.0- 10.0 RBC 4.28 x10^6/UL 3.93-6.00 HGB 13.1 g/dL 12.0-17.0 HCT 39 % 35-50 MCV 90.0 fL 80.0-95.0 MCH 30.6 pg 25.6-32.2 MCHC 34.0 g/dL 32.2-36.0 RDW-CV 11.9 % 11.6-14.4 PLT 273 x10^3/UL 163-400 MPV 9.4 fL 9.4-12.4 Kadeem# 3.28 x10^3/UL 1.56-6.13 Lymph# 1.88 x10^3/UL 1.18-3.74 [place]# 0.38 x10^3/UL 0.24-0.82 Eos # 0.0 x10^3/UL 0.0-0.5 Baso # 0.02 x10^3/UL 0.01-0.08 Kadeem% 58.4 % 34.0-70.0 Lymph % 33.5 % 20.0-52.0 [place]% 6.8 % 5.0-12.0 Eos% 0.7 % 0.7-7.0 Baso% 0.4 % 0.1-1.2 Laboratory test finding 11/28/2018 Ramses Evnus([facility]) TSH 0.65 mIU/L 0.50-6.00 1 Electrophysiology Tech: [id number] 2 Electrophysiology Tech: [id number] 3 SEE RESULT BELOW Name: SUMMER TIAN : [address]: Joe Samano MD Acct: [id number] Unit: [id number] AGE: 68 Location: ED Re01/03/19 SEX: F Status: DEP ER SPEC: [id number] WES: 01/03/19-[address] [facility] [address]: Joe Samano MD REQ: [id number] RECD: 01/03/19 STATUS: HARRIET LYNN DR: Santosh Sanford MD _ SOURCE: URINE SPDESC: ORDERED: Urine Culture Procedure Result Reported Site Urine Culture Final 01/05/19- 0907 ML Organism 1 KLEBSIELLA PNEUMONIAE Peyton Count >100,000 (Many) CFU/ML 1. KLEBSIELLA PNEUMONIAE M.I.C. RX --------- ------ Ampicillin >=32 R Cefazolin <=4 S Cefepime <=1 S Ceftriaxone <=1 S Ciprofloxacin <=0.25 S Gentamicin <=1 S Levofloxacin <=0.12 S Meropenem <=0.25 S Nitrofurantoin 64 I Tetracycline >=16 R Pipercillin/Tazobactam 32 I Trimethoprim/Sulfamethoxazole >=320 R Amoxicillin/Clavulanic Acid 8 S Aztreonam <=1 S Contact the Microbiology Department for any additional antibiotic reporting. * ML - Main Lab . END OF REPORT DEPARTMENT OF PATHOLOGY, [address] [place] [address] Maurizio Pritchard M.D. Director [facility] # [id number] 4 Because ethnic data is not always readily available, this report includes an eGFR for both -Americans and non- Americans. The National Kidney Disease Education Program (NKDEP) does not endorse the use of the MDRD equation for patients that are not between the ages of 18 and 70, are , have extremes of body size, muscle mass, or nutritional status, or are non- or non-. According to the National Kidney Foundation, irrespective of diagnosis, the stage of the disease is based on the level of kidney function: Stage Description GFR(mL/min/1.73 m(2)) 1 Kidney damage with normal or decreased GFR 90 2 Kidney damage with mild decrease in GFR 60-89 3 Moderate decrease in GFR 30-59 4 Severe decrease in GFR 15-29 5 Kidney failure <15 (or dialysis) 5 Troponin-I testing on Plasma Separator Tubes (PST) has a known false positive rate of 0.20-0.40%. All positive troponins reflex immediately to secondary confirmatory testing. Using the Strevus DxI 800 Access Immunoassay systems, the 99th percentile upper reference limit was demonstrated to be < 0.03 ng/mL. 6 Reference ranges based on room air. 7 Test Performed by: [address] [id number] RESULTS VERIFIED BY REPEAT ANALYSIS 9 RESULTS VERIFIED BY REPEAT ANALYSIS Procedures Date Code Description Status 10/07/2018 [id number] Mammogram Completed 07/22/2018 [id number] Diabetic Retinal Eye Exam Completed 01/20/2017 [id number] Colonoscopy Completed 12/30/2016 [id number] Mammogram Completed 05/12/2016 [id number] Colonoscopy Completed 08/09/2014 [id number] Mammogram Completed 09/26/2013 [id number] Bone Mineral Density Test Completed 08/08/2012 [id number] Mammogram Completed 10/20/2010 [id number] Colonoscopy Completed 01/27/2010 [id number] Mammogram Completed 10/22/2008 [id number] Mammogram Completed 06/13/2007 [id number] Mammogram Completed Medical Devices Description No Information Available Encounters Type Date Location Provider Dx Diagnosis Office Visit 01/31/2019 [facility] Office Santosh Sanford, I35.0 Nonrheumatic aortic 11:10a M.D. (valve) stenosis E10.65 Type 1 diabetes mellitus with hyperglycemia Office Visit 01/04/2019 1:30p [facility] Office Brittny Webb E10.65 Type 1 diabetes AARON Bee mellitus with hyperglycemia N39.0 Urinary tract infection, site not specified Assessments Date Code Description Provider 03/15/2019 I35.0 Nonrheumatic aortic (valve) stenosis AARON Hong 03/15/2019 E10.65 Type 1 diabetes mellitus with hyperglycemia AARON Hong 01/31/2019 I35.0 Nonrheumatic aortic (valve) stenosis Santosh Sanford M.D. 01/31/2019 E10.65 Type 1 diabetes mellitus with hyperglycemia Santosh Sanford M.D. 01/04/2019 E10.65 Type 1 diabetes mellitus with hyperglycemia AARON Hong 01/04/2019 N39.0 Urinary tract infection, site not specified AARON Hong 12/07/2018 Z00.01 Encounter for general adult medical Santosh Sanford M.D. examination with abnorma 12/07/2018 E10.65 Type 1 diabetes mellitus with hyperglycemia Santosh Sanford M.D. 12/07/2018 I70.8 Atherosclerosis of other arteries Santosh Sanford M.D. 12/07/2018 I10 Essential (primary) hypertension Santosh Sanford M.D. 12/07/2018 I35.0 Nonrheumatic aortic (valve) stenosis Santosh Sanford M.D. 12/07/2018 F32.9 Major depressive disorder, single episode, Santosh Sanford M.D. unspecified 11/28/2018 Z00.00 Encntr for general adult medical exam w/o Santosh Sanford M.D. abnormal findings Plan of Treatment Future Appointment(s):03/22/2019 2:00 pm - AARON Hong at [facility]03/15/2019 - Brittny Bee, PAI35.0 Nonrheumatic aortic (valve) stenosisComments:Surgery scheduled for April 11 to repalce aortic valve.Emergency Room for worsening fatigue, dizziness.E10.65 Type 1 diabetes mellitus with hyperglycemiaNew Medication:Ozempic (0.25 Or 0.5 MG/Dose) 2 mg/ 1.5ML - Samples givenComments:Increase Lantus to 70 unitsContinue Humalog 25 units before meals. START Ozempic as directed. 0.25 mg injection once a week for 4 weeks, then increase to 0.5 mg for 4 weeks, then increase to 1 mg once weekly. Only inject once a weekSTOP Actos/ Pioglitazone.AllComments: PCMHMedication Management Patient Understands medications he's taking? Yes Are there Barriers to Adherence? No Has the patient been asked about herbal supplements and therapies, and OTC meds? Yes Care Plan1. Patient has been queried about patient's goals/preferences and functional/ lifestyle goals at relevant visits. Yes If relevant, describe: N/A2. Treatment goals as explained to the patient: above3. Are there barriers to meeting treatment goals? No If Yes, please describe:4. Self-Management goals as described to the patient: Yes As always, we strongly encourage a healthy diet and making physical activity a part of your every day life. If you have questions about how or where to start, please contact the office.Follow up:1 week Functional Status Description No Information Available Mental Status Description No Information Available Referrals Refer to Dr Reason for Referral Status Appt Date Brodie Richter MD consult and treat jw Scheduled 01/11/2019 [facility] Endocr[facility]ology [address] [place] [id number] [phone]
--- OUTSIDE RECORDS SUMMARY | 2019-05-04 18:09 | XMS REPORT | Continuity of Care Document ---
:1950 External Reference #:[id number] Author Name AARON Hong Address [address] [place] [address] Care Team Providers Name Role Phone Maria G Best M.D. - Family Care Team Information [employer] Gunner Medicine Santosh Sanford MD - Family Medicine Care Team Information [employer] Gunner [place] [facility] - Cardiovascular Care Team Information [employer] Gunner Disease Arnel Talbot MD - Orthopaedic Care Team Information [employer] Gunner [phone] Surgery Kristin Cooper MD - Sports Medicine Care Team Information [employer] Gunner [phone] Oskar Meraz - Urology Care Team Information [employer] Gunner [phone] Ronan Mcgee MD - Cardiovascular Care Team Information [employer] Gunner [phone] Disease Harmony Barahona PILE DRIVING SUPERVISOR - Primary Care Care Team Information [employer] Gunner Poncho Santillan MD - Gastroenterology Care Team Information [employer] Gunner [phone] Arvind Horne - Endocrinology, Diabetes & Care Team Information [employer] Gunner Metabolism Ki Michel MD - Orthopaedic Care Team Information [employer] Gunner Surgery Problems Active Problems Provider Date Type 2 diabetes mellitus Maria G Best M.D. Onset: 04/07/2011 Degenerative joint disease involving Mari aG Best M.D. Onset: 2010 multiple joints Essential [...] a former smoker Unknown Smoking Status Reviewed: 03/29/19 Patient is a former smoker Allergies, Adverse Reactions, Alerts Active Allergies Reaction Severity Comments Date Penicillin 09/20/1997 Anaprox rash 03/26/1999 Dye 05/05/2000 Ibandronic Acid Severe dizziness 08/13/2014 Medications Active Medications SIG Qnty Indications Ordering Date Provider Medichoice Urethral Patient needs 60units N39.0 Santosh Garza 03/29/2019 Catheterization Tray Brand name: Ezequiel Sanford M.D. Choice. For use twice daily. Ozempic (0.25 Or 0.5 Samples given E10.65 Santosh Garza 03/15/2019 MG/Dose) Georgie Sanford 2mg/1.5ML Solution Pen-Inject Freestyle Lite Blood dx: e11.9 - check 1units Santosh Garza 10/02/2017 Glucose Monitoring blood sugar three Georgie Sanford System times daily - last Device seen 08/18/17 Freestyle Lite Test dx: e11.9 - check 100units Santosh A. 10/02/2017 blood sugar three Georgie Sanford Strips times daily Docusate Sodium 1 by mouth twice a 60caps K59.00 Tamiko 05/05/2017 100mg day as needed Kathe, DIVER PUMPER Capsules constipation Lantus Solostar 40 units subq at 15units E10.65 Tamiko 06/30/2016 hs or as directed Kathe, DIVER PUMPER 100Unit/ML Solution for dose titration Pen-Inject Pen [place] 11/03" [id number] use 100units E10.65 [place] A. 02/19/2016 31G X with eliseo Sanford M.D. 8 mm Misc kwikpen three times daily or as directed Dx: E10.65 Lancets Ultra Fine test qid 1Box E10.65 Santosh A. 02/19/2016 Georgie Sanford Misc Humalog Kwikpen 25 units three 1box E10.65 Santosh A. 06/28/2014 times a day before Georgie Sanford 100Unit/ML Solution meals Pen-Inject Simvastatin 1 by mouth every 30tabs Z13.220 Tamiko 08/10/2013 40mg day Kathe, DIVER PUMPER Tablets Sertraline HCL 1 by mouth every 30tabs F32.9 Tamiko 03/06/2013 25mg morning Kathe, DIVER PUMPER Tablets Ramipril take 2 capsules by 60caps I10 Tamiko 09/23/2010 10mg Capsules mouth once daily Kathe, DIVER PUMPER Pioglitazone HCL 1 by mouth every 90tabs [place] A. 15mg day Georgie Sanford Tablets Omeprazole 1 by mouth every Unknown 20mg day Capsules DR Metoprolol Tartrate take one tablet by Unknown mouth twice a day 50mg Tablets Immunizations CPT Code Status Date Vaccine Lot # [id number] Given 02/10/2018 High-Dose, Influenza Virus Vacccine-fluzone 65 and older 42285 Given 02/28/2017 Influenza Vac, [place], [place] [address] Given 03/06/2016 High-Dose, Influenza Virus Vacccine-fluzone 65 and older 92733 Given 02/05/2015 Zostivax 03927 Given 02/05/2015 High-Dose, Influenza Virus Vacccine-fluzone 65 and older 20869 Given 03/07/2013 DO Not Use Split Influenza Virus Vaccine 83621 Given 04/21/2012 DO Not Use Split Influenza Virus Vaccine [id number] 64954 Given 12/16/2011 Tdap Tetanus, W Pertussis [id number] 98733 Given 03/09/2011 DO Not Use Split Influenza Virus Vaccine 72511 Given 03/09/2011 DO Not Use Split Influenza Virus Vaccine [id number] 96515 Given 03/03/2010 DO Not Use Split Influenza Virus Vaccine [id number] 13741 Given 03/03/2010 Pneumococcal Immunization [id number] 76935 Given 07/26/2009 DO Not Use Split Influenza Virus Vaccine [id number] 73102 Given 06/10/2009 H1N1 Virus Vaccine [id number] 04311 Given 06/10/2009 H1N1 Immunization Intramuscular/Intranasal W Counseling 62151 Given 03/23/2008 DO Not Use Split Influenza Virus Vaccine [id number] 46067 Given 05/04/2007 DO Not Use Split Influenza Virus Vaccine [id number] 89121 Given 05/04/2007 DO Not Use Split Influenza Virus Vaccine [id number] 97301 Given 05/11/2005 Pneumococcal Immunization 74340 Given 05/11/2005 DO Not Use Split Influenza Virus Vaccine Vital Signs Date Vital Result Comment 03/29/2019 9:50am BP Systolic 148 mmHg BP Diastolic 78 mmHg Heart Rate 72 /min Body Temperature 98.6 F Respiratory Rate 18 /min Weight 119.00 lb 03/15/2019 1:19pm BP Systolic 118 mmHg BP Diastolic 70 mmHg Heart Rate 96 /min Body Temperature 98.9 F Respiratory Rate 16 /min Height 63.5 inches 5'3.50" measured Weight 118.00 lb BMI (Body Mass Index) 20.6 kg/m2 Results Test Date Facility Test Result H/L Range Note Laboratory test 03/29/2019 [facility] Glucose, Serum 321 mg/dL High 70-105 finding (607)- - (Fma/CMC/CTX) Laboratory test 03/15/2019 [facility] Hemoglobin A1c 14.5 % High 4.1 -5.7 finding (607)- - (Fma) Laboratory test [place]03/2019 [facility] [place] mg/dL High 70-100 1 finding Glucose Laboratory test 01/03/2019 [facility] [place] 325 mg/dL High 70-100 2 finding Glucose Urinalysis 01/03/2019 [facility] Urine Color Yellow Profile Urine Appearance Turbid Urine Specific [place] 1.015 Normal 1.010-1.030 Urine pH 7.0 Normal [...] Present Abnormal Absent Urine Culture And 01/03/2019 [facility]rine Culture SEE RESULT 3 Sensitivities BELOW CBC Auto Diff 01/03/2019 [facility] White Blood 7.2 10^3/uL Normal 3.5-10.8 Count [...] Cells % 0.0 Comp Metabolic Panel 01/03/2019 [facility] Sodium 128 mmol/L Low 135-145 Potassium 4.3 [...] 101.8 >60 4 Laboratory test finding 01/03/2019 [facility] Troponin I 0.02 ng/mL <0.04 5 Venous Blood Gas 01/03/2019 [facility] Venous Blood pH 7.43 Normal 7.32-7.43 Venous Pco2 50 mmHg Normal 41-51 Venous Po2 46.0 mmHg High 35-45 Venous O2 Saturation 78.5 % Normal 70-80 Venous Blood Base Excess 7.5 mmol/L High 0.0-4.0 6 Venous Bicarbonate Hco3 30.2 mmol/L High 24-28 Laboratory test 01/03/2019 [facility] Beta Hydroxy 0.2 mmol/L <0.4 7 finding [...] >60 ml/min/1.73m^ >=60 Lipid Profile 11/28/2018 Ramses Donovan([facility]) Cholesterol 149 mg/dL 120- 200 Triglycerides 117 mg/dL 30-200 HDL Cholesterol 49 mg/dL 30-85 LDL (Calculated) 77 CALC 0-129 VLDL Cholesterol 23 mg/dL 0-50 HDL Risk Factor 3.0 CALC 0.0-4.4 CBC Electronic Fma 11/28/2018 Ramses Donovan([facility]) WBC 5.6 x10^3/UL 4.0- 10.0 RBC 4.28 x10^6/UL 3.93-6.00 HGB 13.1 g/dL 12.0-17.0 HCT 39 % 35-50 MCV 90.0 fL 80.0-95.0 MCH 30.6 pg 25.6-32.2 MCHC 34.0 g/dL 32.2-36.0 RDW-CV 11.9 % 11.6-14.4 PLT 273 x10^3/UL 163-400 MPV 9.4 fL 9.4-12.4 Kadeem# 3.28 x10^3/UL 1.56-6.13 Lymph# 1.88 x10^3/UL 1.18-3.74 [place]# 0.38 x10^3/UL 0.24-0.82 Eos # 0.0 x10^3/UL 0.0-0.5 Baso # 0.02 x10^3/UL 0.01-0.08 Kadeem% 58.4 % 34.0-70.0 Lymph % 33.5 % 20.0-52.0 [place]% 6.8 % 5.0-12.0 Eos% 0.7 % 0.7-7.0 Baso% 0.4 % 0.1-1.2 Laboratory test finding 11/28/2018 Ramses Donovan([facility]ma) TSH 0.65 mIU/L 0.50-6.00 1 Paper Finisher: [id number] 2 Paper Finisher: [id number] 3 SEE RESULT BELOW Name: SUMMER TIAN : [address]: Joe Samano MD Acct: [id number] Unit: [id number] AGE: 68 Location: ED Re01/03/19 SEX: F Status: DEP ER SPEC: [id number] WES: 01/03/19-[address] [facility] [address]: Joe Samano MD REQ: [id number] RECD: 01/03/19 STATUS: HARRIET LYNN DR: Santosh Sanford MD _ SOURCE: URINE SPDESC: ORDERED: Urine Culture Procedure Result Reported Site Urine Culture Final 01/05/19- 0907 ML Organism 1 KLEBSIELLA PNEUMONIAE [place] Count >100,000 (Many) CFU/ML 1. KLEBSIELLA PNEUMONIAE [...] . END OF REPORT DEPARTMENT OF PATHOLOGY, [address] [place] [address] Maurizio Pritchard M.D. Director [facility] # [id number] 4 Because ethnic data is not always [...] immediately to secondary confirmatory testing. Using the [employer] DxI 800 Access Immunoassay systems, the 99th percentile upper reference limit was demonstrated to be < 0.03 ng/mL. 6 Reference ranges based on room air. 7 Test Performed by: [address] [address] 8 RESULTS VERIFIED BY REPEAT ANALYSIS 9 RESULTS VERIFIED BY REPEAT ANALYSIS Procedures Date Code Description Status 03/15/2019 20625 Finger Or Heel Stick Completed 10/07/2018 [id number] Mammogram Completed 07/22/2018 [id number] Diabetic Retinal Eye Exam Completed 01/20/2017 [id number] Colonoscopy Completed 12/30/2016 [id number] Mammogram Completed 05/12/2016 [id number] Colonoscopy Completed 08/09/2014 [id number] Mammogram Completed 09/26/2013 [id number] Bone Mineral Density Test Completed 08/08/2012 [id number] Mammogram Completed 10/20/2010 [id number] Colonoscopy Completed 01/27/2010 [id number] Mammogram Completed 10/22/2008 [id number] Mammogram Completed 06/13/2007 [id number] Mammogram Completed Medical Devices Description No Information Available Encounters Type Date Location Provider Dx Diagnosis Office Visit 03/15/2019 [facility] Office Brittny Bee I35.0 Nonrheumatic aortic 1:30p PA (valve) stenosis E10.65 Type 1 diabetes mellitus with hyperglycemia Office Visit 01/31/2019 11:10a [facility] Office Santosh Hollingsworth35.0 Nonrheumatic aortic Georgie Sanford (valve) stenosis E10.65 Type 1 diabetes mellitus with hyperglycemia Office Visit 01/04/2019 1:30p [facility] Office Brittny Webb E10.65 Type 1 diabetes AARON Bee mellitus with hyperglycemia N39.0 Urinary tract infection, site not specified Assessments Date Code Description Provider 03/29/2019 N39.0 Urinary tract infection, site not specified AARON Hong 03/29/2019 E11.65 Type 2 diabetes mellitus with hyperglycemia AARON Hong 03/29/2019 I35.0 Nonrheumatic aortic (valve) stenosis AARON Hong 03/15/2019 I35.0 Nonrheumatic aortic (valve) stenosis AARON [...] M.D. abnormal findings Plan of Treatment Future Appointment(s):05/15/2019 1:45 pm - AARON Hong at [facility]03/29/2019 - ROBERTA Hong39.0 Urinary tract infection, site not specifiedNew Medication:Medichoice Urethral Catheterization Tray - Patient needs Brand name: Medi Choice. For use twice daily.Comments:Continue Cefdinir 300 mg twice a day until 04/06/19 continue to Self Catheterize - Refills sent See Urologist Dr. Meraz for follow up.E11.65 Type 2 diabetes mellitus with hyperglycemiaComments:Continue humalog and Lantus as you have been and measuring. Continue Ozempic injections every . Follow up in 1 rifswY03.0 Nonrheumatic aortic (valve) stenosisComments:Surgery scheduled for April 11 to repalce aortic valve.Emergency Room for worsening fatigue, dizziness.AllComments:PCMHMedication Management Patient Understands medications he's taking? Yes Are there Barriers to Adherence? No Has the patient been asked about herbal supplements and therapies, and OTC meds? Yes Care Plan1. Patient has been queried about patient's goals/preferences and functional/lifestyle goals at relevant visits. Yes If relevant, describe: N/ A2. Treatment goals as explained to the patient: above3. Are there barriers to meeting treatment goals? No If Yes, please describe:4. Self- Management goals as described to the patient: Yes As always, we strongly encourage a healthy diet and making physical activity a part of your every day life. If you have questions about how or where to start, please contact the office. Functional Status Description No Information Available Mental Status Description No Information Available Referrals Refer to Reason for Referral Status Appt Date Brodie Richter MD consult and treat jw Scheduled 01/11/2019 [facility] Endocrinology [address] [place] [id number] [phone]
--- OUTSIDE RECORDS SUMMARY | 2019-05-04 18:09 | XMS REPORT | Continuity of Care Document ---
:1950 External Reference #:[id number] Author Name AARON Hong Address [address] [place] [address] Care Team Providers Name Role Phone Maria G Best M.D. - Family Care Team Information Intermodal Truck Driver Medicine Santosh Sanford MD - Family Medicine Care Team Information Intermodal Truck Driver [phone] [place] [facility] - Cardiovascular Care Team Information Intermodal Truck Driver Disease Arnel Talbot MD - Orthopaedic Care Team Information [employer] Truck Driver Surgery Kristin Cooper MD - Sports Medicine Care Team Information Intermodal Truck Driver Oskar Meraz - Urology Care Team Information Intermodal Truck Driver [phone] Ronan Mcgee MD - Cardiovascular Care Team Information Intermodal Truck Driver Disease Harmony Barahona TRANSITION SPECIALIST - Primary Care Care Team Information Intermodal Truck Driver Poncho Santillan MD - Gastroenterology Care Team Information Intermodal Truck Driver Arvind Horne - Endocrinology, Diabetes & Care Team Information Intermodal Truck Driver Metabolism Ki Michel MD - Orthopaedic Care Team Information Intermodal Truck Driver [phone] Surgery Problems Active Problems Provider Date Type [...] Santosh Garza 03/29/2019 Catheterization Tray Brand name: Eezquiel Sanford M.D. Choice. For use twice daily. Ozempic (0.25 Or 0.5 Samples given E10.65 Santosh Garza 03/15/2019 MG/Dose) Georgie Sanford 2mg/1.5ML Solution Pen-Inject Freestyle Lite Blood dx: e11.9 - check 1units Santosh Garza 10/02/2017 Glucose Monitoring blood sugar shira Sanford M.D. System times daily - last Device seen 08/18/17 Freestyle Lite Test dx: e11.9 - check 100units Santosh AAdamaris 10/02/2017 blood sugar three Georgie Sanford Strips times daily Docusate Sodium 1 by mouth twice a 60caps K59.00 Tamiko 05/05/2017 100mg day as needed Kathe, BAND RIPSAW OPERATOR Capsules constipation Lantus Solostar 40 units subq at 15units E10.65 Tmaiko 06/30/2016 hs or as directed Kathe, BAND RIPSAW OPERATOR 100Unit/ML Solution for dose titration Pen-Inject Pen [place] 11/03" [id number] use 100units E10.65 Santosh A. 02/19/2016 31G X with eliseo Sanford M.D. 8 mm Misc kwikpen three times daily or as directed Dx: E10.65 Lancets Ultra Fine test qid 1Box E10.65 Santosh AAdamaris 02/19/2016 Georgie Sanford Misc Humalog Kwikpen 25 units three 1box E10.65 Tamiko 06/28/2014 times a day before Kathe, BAND RIPSAW OPERATOR 100Unit/ML Solution meals Pen-Inject Simvastatin 1 by mouth every 30tabs Z13.220 Tamiko 08/10/2013 40mg day Kathe, BAND RIPSAW OPERATOR Tablets Sertraline HCL 1 by mouth every 30tabs F32.9 Tamiko 03/06/2013 25mg morning Kathe, BAND RIPSAW OPERATOR Tablets Ramipril take 2 capsules by 60caps I10 Tamiko 09/23/2010 10mg Capsules mouth once daily Kathe, BAND RIPSAW OPERATOR Pioglitazone HCL 1 by mouth every 90tabs Santosh Aleah. 15mg day Georgie Sanford Tablets Omeprazole 1 by mouth every Unknown 20mg day Capsules DR Metoprolol Tartrate take one tablet by Unknown mouth twice a day 50mg Tablets Immunizations CPT Code Status Date Vaccine Lot # [id number] Given 02/10/2018 High-Dose, Influenza Virus Vacccine-fluzone 65 and older 75023 Given 02/28/2017 Influenza Vac, [place], [place] [address] Given 03/06/2016 High-Dose, Influenza Virus Vacccine-fluzone 65 and older 59267 Given 02/05/2015 Zostivax 75822 Given 02/05/2015 High-Dose, Influenza Virus Vacccine-fluzone 65 and older 08440 Given 03/07/2013 DO Not Use Split Influenza Virus Vaccine 01054 Given 04/21/2012 DO Not Use Split Influenza Virus Vaccine [id number] 73497 Given 12/16/2011 Tdap Tetanus, W Pertussis [id number] 49818 Given 03/09/2011 DO Not Use Split Influenza Virus Vaccine 34083 Given 03/09/2011 DO Not Use Split Influenza Virus Vaccine [id number] 58420 Given 03/03/2010 DO Not Use Split Influenza Virus Vaccine [id number] 19256 Given 03/03/2010 Pneumococcal Immunization [id number] 66010 Given 07/26/2009 DO Not Use Split Influenza Virus Vaccine [id number] 49504 Given 06/10/2009 H1N1 Virus Vaccine [id number] 32181 Given 06/10/2009 H1N1 Immunization Intramuscular/Intranasal W Counseling 65020 Given 03/23/2008 DO Not Use Split Influenza Virus Vaccine [id number] 85141 Given 05/04/2007 DO Not Use Split Influenza Virus Vaccine [id number] 42584 Given 05/04/2007 DO Not Use Split Influenza Virus Vaccine [id number] 40700 Given 05/11/2005 Pneumococcal Immunization 31122 Given 05/11/2005 DO Not Use Split Influenza [...] Result H/L Range Note Laboratory test 03/15/2019 [facility] Hemoglobin A1c 14.5 % High 4.1 -5.7 finding (607)- - (Fma) Laboratory test 01/03/2019 [facility] Point of Care 235 mg/dL High 70-100 1 finding Glucose Laboratory test 01/03/2019 [facility] Point of Care 325 mg/dL High 70-100 2 finding Glucose Urinalysis 01/03/2019 [facility] Urine Color Yellow Profile Urine Appearance Turbid Urine Specific [place] 1.015 Normal 1.010-1.030 Urine pH 7.0 Normal [...] Present Abnormal Absent Urine Culture And 01/03/2019 [facility] [place] Urine Culture SEE RESULT 3 Sensitivities BELOW CBC Auto Diff 01/03/2019 [facility] White Blood 7.2 10^3/uL Normal [...] Cells % 0.0 Comp Metabolic Panel 01/03/2019 [facility] Sodium 128 mmol/L Low 135-145 [...] 101.8 >60 4 Laboratory test finding 01/03/2019 [facility] Troponin I 0.02 ng/mL <0.04 5 Venous Blood Gas 01/03/2019 [facility] Venous Blood pH 7.43 Normal 7.32-7.43 Venous Pco2 50 mmHg Normal 41-51 Venous Po2 46.0 mmHg High 35-45 Venous O2 Saturation 78.5 % Normal 70-80 Venous Blood Base Excess 7.5 mmol/L High 0.0-4.0 6 Venous Bicarbonate Hco3 30.2 mmol/L High 24-28 Laboratory test 01/03/2019 [facility] Beta Hydroxy 0.2 mmol/L <0.4 [...] Profile 11/28/2018 Ramses Donovan([facility]) Cholesterol 149 mg/dL 120- 200 Triglycerides 117 mg/dL 30-200 HDL Cholesterol 49 mg/dL 30-85 LDL (Calculated) 77 CALC 0-129 VLDL Cholesterol 23 mg/dL 0-50 HDL Risk Factor 3.0 CALC 0.0-4.4 CBC Electronic Fma 11/28/2018 Ramses Donovan([facility]) WBC 5.6 x10^3/UL 4.0- 10.0 RBC 4.28 x10^6/UL 3.93-6.00 HGB 13.1 g/dL 12.0-17.0 HCT 39 % 35-50 MCV 90.0 fL 80.0-95.0 MCH 30.6 pg 25.6-32.2 MCHC 34.0 g/dL 32.2-36.0 RDW-CV 11.9 % 11.6-14.4 PLT 273 x10^3/UL 163-400 MPV 9.4 fL 9.4-12.4 Kadeem# 3.28 x10^3/UL 1.56-6.13 Lymph# 1.88 x10^3/UL 1.18-3.74 [place]# 0.38 x10^3/UL 0.24-0.82 Eos # 0.0 x10^3/UL 0.0-0.5 Baso # 0.02 x10^3/UL 0.01-0.08 Kadeem% 58.4 % 34.0-70.0 Lymph % 33.5 % 20.0-52.0 [place]% 6.8 % 5.0-12.0 Eos% 0.7 % 0.7-7.0 Baso% 0.4 % 0.1-1.2 Laboratory test finding 11/28/2018 Ramses Donovan([facility]) TSH 0.65 mIU/L 0.50-6.00 1 Machine Quilt Stuffer: [id number] 2 Machine Quilt Stuffer: [id number] 3 SEE RESULT BELOW Name: SUMMER TIAN : [address]: Joe Samano MD Acct: [id number] Unit: [id number] AGE: 68 Location: ED Re01/03/19 SEX: F Status: DEP ER SPEC: [id number] WES: 01/03/19-[address] [facility] [address]: Joe Samano MD REQ: [id number] RECD: 01/03/19 STATUS: HARRIET LYNN DR: Santosh Sanford MD _ SOURCE: URINE SPDESC: ORDERED: Urine Culture Procedure Result Reported Site Urine Culture Final 01/05/19- 0907 ML Organism 1 KLEBSIELLA PNEUMONIAE [place] Count >100,000 (Many) CFU/ML 1. KLEBSIELLA PNEUMONIAE [...] . END OF REPORT DEPARTMENT OF PATHOLOGY, [address] [place] [address] Maurizio Pritchard M.D. Director [facility] # [id number] 4 Because ethnic data is not always [...] immediately to secondary confirmatory testing. Using the [employer] DxI 800 Access Immunoassay systems, the 99th percentile upper reference limit was demonstrated to be < 0.03 ng/mL. 6 Reference ranges based on room air. 7 Test Performed by: [address] [address] 8 RESULTS VERIFIED BY REPEAT ANALYSIS 9 RESULTS VERIFIED BY REPEAT ANALYSIS Procedures Date Code Description Status 03/15/2019 71410 Finger Or Heel Stick Completed 10/07/2018 [id number] Mammogram Completed 07/22/2018 [id number] Diabetic Retinal Eye Exam Completed 01/20/2017 [id number] Colonoscopy Completed 12/30/2016 [id number] Mammogram Completed 05/12/2016 [id number] Colonoscopy Completed 08/09/2014 [id number] Mammogram Completed 09/26/2013 [id number] Bone Mineral Density Test Completed 08/08/2012 [id number] Mammogram Completed 10/20/2010 [id number] Colonoscopy Completed 01/27/2010 [id number] Mammogram Completed 10/22/2008 [id number] Mammogram Completed 06/13/2007 [id number] Mammogram Completed Medical Devices Description No Information Available Encounters Type Date Location Provider Dx Diagnosis Office Visit 03/15/2019 [facility] Office Brittny Bee, I35.0 Nonrheumatic aortic 1:30p [place] (valve) stenosis E10.65 Type 1 diabetes mellitus with hyperglycemia Office Visit 01/31/2019 11:10a [facility] Office Santosh Garza I35.0 Nonrheumatic aortic Georgie Sanford (valve) stenosis E10.65 Type 1 diabetes mellitus with hyperglycemia Office Visit 01/04/2019 1:30p [facility] Office Brittny Webb E10.65 Type 1 [...] Appointment(s):05/15/2019 1:45 pm - AARON Hong at [facility]03/29/2019 - Brittny Bee, PAN39.0 Urinary tract infection, site not specifiedNew Medication:Medichoice [...] injections every . Follow up in 1 knvcoL71.0 Nonrheumatic aortic (valve) stenosisComments:Surgery scheduled for April [...] MD consult and treat jw Scheduled 01/11/2019 [facility] Endocrinology [address] [facility] [address] [phone]
--- OUTSIDE RECORDS SUMMARY | 2019-05-04 18:09 | XMS REPORT | Continuity of Care Document ---
:1950 External Reference #:[id number] Author Name AARON Hong Address [address] [place] [address] Care Team Providers Name Role Phone Maria G Best M.D. - Family Care Team Information Aging Box Hand Medicine Santosh Sanford MD - Family Medicine Care Team Information Aging Box Hand [facility] - Cardiovascular Care Team Information Aging Box Hand Disease Arnel Talbot MD - Orthopaedic Care Team Information Aging Box Hand Surgery Kristin Cooper MD - Sports Medicine Care Team Information Aging Box Hand [phone] Oskar Meraz - Urology Care Team Information Aging Box Hand [phone] Ronan Mcgee MD - Cardiovascular Care Team Information Aging Box Hand [phone] Disease Harmony Barahona [employer] - Primary Care Care Team Information Aging Box Hand Poncho Santillan MD - Gastroenterology Care Team Information Aging Box Hand [phone] Arvind Horne - Endocrinology, Diabetes & Care Team Information Aging Box Hand Metabolism Ki Michel MD - Orthopaedic Care Team Information Aging Box Hand [phone] Surgery Problems Active Problems Provider Date Type [...] a former smoker Unknown Smoking Status Reviewed: 04/18/19 Patient is a former smoker Allergies, Adverse Reactions, Alerts Active Allergies Reaction Severity Comments Date Penicillin 09/20/1997 Anaprox rash 03/26/1999 Dye 05/05/2000 Ibandronic Acid Severe dizziness 08/13/2014 Medications Active Medications SIG Qnty Indications Ordering Date Provider Victoza 0.6 ml injection E11.65 Santosh Garza 04/18/2019 18mg/3ML daily. demetrius Sanford M.D. Solution Pen-Inject give Medichoice Urethral Patient needs 60units N39.0 Santosh Garza 03/29/2019 Catheterization Tray Brand name: Ezequiel Sanford M.D. Choice. For use twice daily. Freestyle Lite Blood dx: e11.9 - check 1units Santosh Garza 10/02/2017 Glucose Monitoring blood sugar three Claribel M.D. System times daily - last Device seen 08/18/17 Freestyle Lite Test dx: e11.9 - check 100units Santosh Garza 10/02/2017 blood sugar shira Sanford M.D. Strips times daily Docusate Sodium 1 by mouth twice a 60caps K59.00 Tamiko 05/05/2017 100mg day as needed Kathe, [employer]INICAL SERVICES PROFESSIONAL Capsules constipation Pen [place] 11/03" [id number] use 100units E10.65 Santosh Garza 02/19/2016 31G X with eliseo Sanford M.D. 8 mm Misc kwikpen three times daily or as directed Dx: E10.65 Lancets Ultra Fine test qid 1Box E10.65 Santosh Garza 02/19/2016 Georgie Sanford Misc Humalog Kwikpen 25 units three 1box E10.65 Santosh Garza 06/28/2014 times a day before Georgie Sanford 100Unit/ML Solution meals Pen-Inject Simvastatin 1 by mouth every 30tabs Z13.220 Tamiko 08/10/2013 40mg day Kathe, [employer]INICAL SERVICES PROFESSIONAL Tablets Sertraline HCL 1 by mouth every 30tabs F32.9 Tamiko 03/06/2013 25mg morning Kathe, [employer]INICAL SERVICES PROFESSIONAL Tablets Ramipril take 2 capsules by 60caps I10 Tamiko 09/23/2010 10mg Capsules mouth once daily Kathe, CLINICAL SERVICES PROFESSIONAL Omeprazole 1 by mouth every Unknown 20mg day Capsules DR Metoprolol Tartrate take one tablet by Unknown mouth twice a day 50mg Tablets Metformin HCL take one tablet by Unknown 1000mg mouth twice a day Tablets Cefdinir 1 by mouth twice Unknown 300mg Capsules daily History Medications Ozempic (0.25 Or 0.5 Samples given E10.65 Santosh Sanford, 03/15/2019 - MG/Dose) Georgie 04/18/2019 2mg/1.5ML Solution Pen-Inject Immunizations CPT Code Status Date Vaccine Lot # [id number] Given 02/10/2018 High-Dose, Influenza Virus Vacccine-fluzone 65 and older 37917 Given 02/28/2017 Influenza Vac, Quadriv[place], [place] [address] Given 03/06/2016 High-Dose, Influenza Virus Vacccine-fluzone 65 and older 85996 Given 02/05/2015 Zostivax 20793 Given 02/05/2015 High-Dose, Influenza Virus Vacccine-fluzone 65 and older 43321 Given 03/07/2013 DO Not Use Split Influenza Virus Vaccine 37275 Given 04/21/2012 DO Not Use Split Influenza Virus Vaccine [id number] 87031 Given 12/16/2011 Tdap Tetanus, W Pertussis [id number] 61149 Given 03/09/2011 DO Not Use Split Influenza Virus Vaccine 12732 Given 03/09/2011 DO Not Use Split Influenza Virus Vaccine [id number] 02876 Given 03/03/2010 DO Not Use Split Influenza Virus Vaccine [id number] 90807 Given 03/03/2010 Pneumococcal Immunization [id number] 27486 Given 07/26/2009 DO Not Use Split Influenza Virus Vaccine [id number] 16537 Given 06/10/2009 H1N1 Virus Vaccine [id number] 31928 Given 06/10/2009 H1N1 Immunization Intramuscular/Intranasal W Counseling 96242 Given 03/23/2008 DO Not Use Split Influenza Virus Vaccine [id number] 41376 Given 05/04/2007 DO Not Use Split Influenza Virus Vaccine [id number] 48374 Given 05/04/2007 DO Not Use Split Influenza Virus Vaccine [id number] 07232 Given 05/11/2005 Pneumococcal Immunization 08621 Given 05/11/2005 DO Not Use Split Influenza Virus Vaccine Vital Signs Date Vital Result Comment 04/18/2019 8:41am BP Systolic 174 mmHg BP Diastolic 80 mmHg BP Systolic Recheck 156 mmHg BP Diastolic Recheck 82 mmHg Heart Rate 78 /min Body Temperature 97.3 F Respiratory Rate 12 /min Height 62 inches 5'2" per pt Weight 123.00 lb BMI (Body Mass Index) 22.5 kg/m2 03/29/2019 9:50am BP Systolic 148 mmHg BP Diastolic 78 mmHg Heart Rate 72 /min Body Temperature 98.6 F Respiratory Rate 18 /min Weight 119.00 lb Results Test Date Facility Test Result H/L Range Note CBC Electronic [facility] 04/18/2019 [facility]) WBC 7.2 x10^3/UL 4.0- 10.0 RBC 3.93 x10^6/UL 3.93-6.00 HGB 11.5 g/dL Low 12.0-17.0 HCT 36 % 35-50 MCV 91.9 fL 80.0-95.0 MCH 29.3 pg 25.6-32.2 MCHC 31.9 g/dL Low 32.2-36.0 1 RDW-CV 13.0 % 11.6-14.4 PLT 424 x10^3/UL High 163-400 2 MPV 8.6 fL Low 9.4-12.4 Kadeem# 3.76 x10^3/UL 1.56-6.13 Lymph# 2.64 x10^3/UL 1.18-3.74 [place]# 0.53 x10^3/UL 0.24-0.82 Eos # 0.2 x10^3/UL 0.0-0.5 Baso # 0.02 x10^3/UL 0.01-0.08 Kadeem% 52.4 % 34.0-70.0 Lymph % 36.8 % 20.0-52.0 [place]% 7.4 % 5.0-12.0 Eos% 2.4 % 0.7-7.0 Baso% 0.3 % 0.1-1.2 Laboratory test finding 04/18/2019 [facility] C Reactive Protein 6.20 mg/L Normal <8.01 3 Comp Metabolic Panel 04/18/2019 [facility] Sodium 137 mmol/L Normal 135-145 Potassium 4.5 mmol/L Normal 3.5-5.0 Chloride 97 mmol/L Low 101-111 Co2 Carbon Dioxide 32 mmol/L Normal 22-32 Anion Gap 8 mmol/L Normal 2-11 Glucose 238 mg/dL High 70-100 Blood Urea Nitrogen 16 mg/dL Normal 6-24 Creatinine 0.68 mg/dL Normal 0.51-0.95 BUN/Creatinine Ratio 23.5 High 8-20 Calcium 9.7 mg/dL Normal 8.6-10.3 Total Protein 6.6 g/dL Normal 6.4-8.9 Albumin 3.7 g/dL Normal 3.2-5.2 Globulin 2.9 g/dL Normal 2-4 Albumin/Globulin Ratio 1.3 Normal 1-3 Total Bilirubin 0.30 mg/dL Normal 0.2-1.0 Alkaline Phosphatase 95 U/L Normal 34-104 Alt 11 U/L Normal 7-52 Ast 10 U/L Low 13-39 Egfr Non- 85.5 >60 Egfr 103.5 >60 4 Ua - Micro (Fma) 04/18/2019 [facility] Appearance clear (607)- - Color yellow Glucose, Urine (Fma/CMC/CTX) 250 known diabetic Bilirubin neg Ketones neg SP Grav 1.010 Blood trace-lysed PH 6.0 Protein trace Urobil 0.2 Nitrite neg Leukocytes (a/CMC/Centrex) large Hyaline - /Lpf Granular - /Lpf WBC (Fma,Centrex) 10-12 RBC 3-5 Mucus (a/CBC/Centrex) - /Lpf Epith rare /Lpf Bacteria trace /Hpf Amorphous (a/CMC/Centrex) - /Lpf Crystals, Fluid (a/CMC/CTX) - Z#Comments - Laboratory test 03/29/2019 [facility] Glucose, Serum 321 mg/dL High 70-105 finding (607)- - (Fma/CMC/CTX) Laboratory test 03/15/2019 [facility] Hemoglobin A1c 14.5 % High 4.1 -5.7 finding (607)- - ([facility]) Laboratory test 01/03/2019 [facility] Beta Hydroxy 0.2 <0.4 5 finding Butyrate mmol/L Venous Blood 01/03/2019 [facility] Venous Blood pH 7.43 Normal 7.32-7.43 Gas Venous Pco2 50 mmHg Normal 41-51 Venous Po2 46.0 mmHg High 35-45 Venous O2 Saturation 78.5 % Normal 70-80 Venous Blood Base Excess 7.5 mmol/L High 0.0-4.0 6 Venous Bicarbonate Hco3 30.2 mmol/L High 24-28 Laboratory test finding 01/03/2019 [facility] Troponin I 0.02 ng/mL <0.04 7 Comp Metabolic Panel 01/03/2019 [facility] Sodium 128 mmol/L Low 135-145 [...] Egfr Non- 84.1 >60 Egfr 101.8 >60 8 CBC Auto Diff 01/03/2019 [facility] White Blood Count 7.2 10^3/uL Normal 3.5- 10.8 Red Blood Count 4.17 10^6/uL Normal 3.70-4.87 [...] % Nucleated Red Blood Cells % 0.0 Urine Culture And Sensitivities 01/03/2019 [facility] Urine Culture SEE RESULT BELOW 9 Urinalysis Profile 01/03/2019 [facility] Urine Color Yellow Urine Appearance Turbid Urine Specific [place] 1.015 Normal 1.010-1.030 Urine pH 7.0 Normal [...] Urine Squamous Epithelial Cell Present Abnormal Absent Laboratory test 01/03/2019 [facility] Point of Care 325 mg/dL High 70-100 10 finding Glucose Laboratory test 01/03/2019 [facility] Point of Care 235 mg/dL High 70-100 11 finding Glucose Comprehensive 11/28/2018 [facility]) Sodium 131 mEq/L Low 134- 149 Metabolic Prof Potassium 4.0 mEq/L 3.6-5.5 Chloride 91 mEq/L Low 94-112 Carbon Dioxide 26 mEq/L 21-32 Glucose 438 mg/dL High 70-105 12 BUN 20 mg/dL 6-26 Creatinine 0.6 mg/dL 0.6-1.4 BUN/Creat Ratio 33.3 CALC 8.0-36.0 Calcium 8.6 mg/dL 8.6-10.2 Total Protein 6.2 g/dL Low 6.4-8.3 Albumin 3.9 g/dL 3.8-5.5 Globulin 2.3 g/dL 2.0-4.8 A/G Ratio 1.7 CALC 0.6-2.3 Alk. Phosphatase 121 U/L High 30-110 13 Alt (SGPT) 13 U/L 7-35 Ast (Sgot) 9 U/L 5-34 Total Bilirubin 0.5 mg/dL 0.2-1.3 GFR Non- >60 ml/min/1.73m^ >=60 GFR >60 ml/min/1.73m^ >=60 Lipid Profile 11/28/2018 [facility]) Cholesterol 149 mg/dL 120- 200 Triglycerides 117 mg/dL 30-200 HDL Cholesterol 49 mg/dL 30-85 LDL (Calculated) 77 CALC 0-129 VLDL Cholesterol 23 mg/dL 0-50 HDL Risk Factor 3.0 CALC 0.0-4.4 CBC Electronic a 11/28/2018 [facility](a) WBC 5.6 x10^3/UL 4.0- 10.0 RBC 4.28 x10^6/UL 3.93-6.00 HGB 13.1 g/dL 12.0-17.0 HCT 39 % 35-50 MCV 90.0 fL 80.0-95.0 MCH 30.6 pg 25.6-32.2 MCHC 34.0 g/dL 32.2-36.0 RDW-CV 11.9 % 11.6-14.4 PLT 273 x10^3/UL 163-400 MPV 9.4 fL 9.4-12.4 Kadeem# 3.28 x10^3/UL 1.56-6.13 Lymph# 1.88 x10^3/UL 1.18-3.74 [place]# 0.38 x10^3/UL 0.24-0.82 Eos # 0.0 x10^3/UL 0.0-0.5 Baso # 0.02 x10^3/UL 0.01-0.08 Kadeem% 58.4 % 34.0-70.0 Lymph % 33.5 % 20.0-52.0 [place]% 6.8 % 5.0-12.0 Eos% 0.7 % 0.7-7.0 Baso% 0.4 % 0.1-1.2 Laboratory test finding 11/28/2018 [facility]) TSH 0.65 mIU/L 0.50-6.00 1 RESULTS VERIFIED BY REPEAT ANALYSIS 2 RESULTS VERIFIED BY REPEAT ANALYSIS 3 [id number] 2 gold top sst tube 4 Because ethnic data is not always [...] 5 Kidney failure <15 (or dialysis) 5 Test Performed by: [address] [address] 6 Reference ranges based on room air. 7 Troponin-I testing on Plasma Separator Tubes (PST) has a known false positive rate of 0.20-0.40%. All positive troponins reflex immediately to secondary confirmatory testing. Using the GT Nexus DxI 800 Access Immunoassay systems, the 99th percentile upper reference limit was demonstrated to be < 0.03 ng/mL. 8 Because ethnic data is not always readily [...] 15-29 5 Kidney failure <15 (or dialysis) 9 SEE RESULT BELOW Name: SUMMER TIAN : [address]: Joe Samano MD Acct: [id number] Unit: [id number] AGE: 68 Location: ED Re01/03/19 SEX: F Status: DEP ER SPEC: [id number] WES: 01/03/19-[address] [facility] DR: Joe Samano MD REQ: [id number] RECD: 01/03/19 STATUS: HARRIET LYNN DR: Santosh Sanford MD _ SOURCE: URINE SPDESC: ORDERED: Urine Culture Procedure Result Reported Site Urine Culture Final 01/05/19- 0907 ML Organism 1 KLEBSIELLA PNEUMONIAE Lawrence Count >100,000 (Many) CFU/ML 1. KLEBSIELLA PNEUMONIAE [...] . END OF REPORT DEPARTMENT OF PATHOLOGY, [address] [place] [address] Maurizio Pritchard M.D. Director [facility] # [id number] Social Media Manager: [id number] Social Media Manager: [id number] RESULTS VERIFIED BY REPEAT ANALYSIS 13 RESULTS VERIFIED BY REPEAT ANALYSIS Procedures Date Code Description Status 03/29/2019 30780 Finger Or Heel Stick Completed 03/15/2019 13563 Finger Or Heel Stick Completed 10/07/2018 [id number] Mammogram Completed 07/22/2018 534450117 Diabetic Retinal Eye Exam Completed 01/20/2017 46190586 Colonoscopy Completed 12/30/2016 35953481 Mammogram Completed 05/12/2016 [id number] Colonoscopy Completed 08/09/2014 83895951 Mammogram Completed 09/26/2013 914632910 Bone Mineral Density Test Completed 08/08/2012 26509315 Mammogram Completed 10/20/2010 46618303 Colonoscopy Completed 01/27/2010 43328426 Mammogram Completed 10/22/2008 91665910 Mammogram Completed 06/13/2007 71432583 Mammogram Completed Medical Devices Description No Information Available Encounters Type Date Location Provider Dx Diagnosis Office Visit 03/29/2019 [facility] Office Brittny Bee, N39.0 Urinary tract 9:45a PA infection, site not specified E11.65 Type 2 diabetes mellitus with hyperglycemia I35.0 Nonrheumatic aortic (valve) stenosis Office Visit 03/15/2019 1:30p [facility] Office Brittny Webb I35.0 Nonrheumatic aortic Rohit, PA (valve) stenosis E10.65 Type 1 diabetes mellitus with hyperglycemia Office Visit 01/31/2019 11:10a [facility] Office Santosh Garza I35.0 Nonrheumatic aortic Georgie Sanford (valve) stenosis E10.65 Type 1 diabetes mellitus with hyperglycemia Office Visit 01/04/2019 1:30p [facility] Office Brittny Webb E10.65 Type 1 diabetes Rohit, PA mellitus with hyperglycemia N39.0 Urinary tract infection, site not specified Assessments Date Code Description Provider 04/18/2019 R78.81 Bacteremia Brittny C Linick, AARON 04/18/2019 E11.65 Type 2 diabetes mellitus with hyperglycemia Brittny Bee , PA 04/18/2019 I35.0 Nonrheumatic aortic (valve) stenosis Brittny Bee, PA 03/29/2019 N39.0 Urinary tract infection, site not specified AARON Hong 03/29/2019 E11.65 Type 2 diabetes mellitus with hyperglycemia Brittny Bee , PA 03/29/2019 I35.0 Nonrheumatic aortic (valve) stenosis Brittny Bee, PA 03/15/2019 I35.0 Nonrheumatic aortic (valve) stenosis Brittny Bee, PA 03/15/2019 E10.65 Type 1 diabetes mellitus with hyperglycemia Brittny Bee PA 01/31/2019 I35.0 Nonrheumatic aortic (valve) stenosis Santosh [...] M.D. abnormal findings Plan of Treatment Future Appointment(s):04/24/2019 2:00 pm - AARON Hong at [facility]05/15/2019 1:45 pm - AARON Hong at [facility]04/18/2019 - Brittny Bee, PAR78.81 BacteremiaComments:Check urine today and labs today. Continue antibiotic. See Dr. Enriquez11.65 Type 2 diabetes mellitus with hyperglycemiaNew Medication:Victoza 18 mg/3ML - 0.6 ml injection daily. samples giveComments:Continue sliding scale Humalog at meals Restart Victoza 0.6 injection daily- samples given Continue Metformin 1000 mg bajaxY94.0 Nonrheumatic aortic (valve) stenosisComments:Surgery scheduled for May 02, follow up on Apr 26 to repalce aortic valve.Emergency Room for worsening fatigue, dizziness.AllComments:PCMHMedication Management Patient Understands medications he's taking? Yes Are there Barriers to Adherence? No Has the patient been asked about herbal supplements and therapies, and OTC meds ? Yes Care Plan1. Patient has been queried about patient's goals/ preferences and functional/lifestyle goals at relevant visits. Yes [...] MD consult and treat jw Scheduled 01/11/2019 [facility] Endocrinology [address] [facility] [address] [phone]
--- OUTSIDE RECORDS SUMMARY | 2019-05-04 18:09 | XMS REPORT | Continuity of Care Document ---
:1950 External Reference #:[id number] Author Name Brodie Richter MD (transmitted by agent of provider Palma Gardner) Address [address] [place] [address] Care Team Providers Name Role Phone Santosh Sanford MD - Family Care Team Information Toe Pounder [phone] Medicine Problems Active Problems Provider Date Contusion of knee Josh Ramires MD Onset: 04/15/2015 Localized, primary osteoarthritis Josh Ramires MD Onset: 05/27/2015 Social History Type Date Description Comments Sex Unknown ETOH Use Denies alcohol use Recreational Drug Use Denies Drug Use Tobacco Use Start: Unknown End: Patient is a former quit 1991 Unknown smoker Smoking Status Reviewed: 03/29/19 Patient is a former quit 1991 smoker Exercise Type/Frequency Exercises regularly walking with work Allergies, Adverse Reactions, Alerts Active Allergies Reaction Severity Comments Date Penicillin rash 07/06/2013 Anaprox rash 07/06/2013 C,T,Dye full body rash 07/06/2013 Alendronate stomach upset 12/20/2018 Medications Active Medications SIG Qnty Indications Ordering Date Provider V-Go 40 1 device daily 30units E11.65 Brodie Richter, 03/29/2019 Kit Humalog use with V-Go 30ml E11.65 Brodie Richter, 03/29/2019 100Unit/ML Solution 40 insulin pump, MDD 100 Insulin Syringe/Needle for use with 50units E11.65 Brodie Richter, 03/29/2019 1ML/29G X 1/2" V-Go insulin 29G X 1/2" 1 ML pump Misc Pioglitazone HCL take 15mg once 30tabs E11.69 Brodie Richter, 01/11/2019 15mg Tablets daily MD Freestyle Jewels 14 use at least 4 1units E11.69 [facility], 12/20/2018 Day/Alex/Flash times daily MD Monitoring System with sensor Device Freestyle Jewels [address] one 2units E11.69 [facility], 12/20/2018 Day/Sensor/Flash sensor every 14 MD Monitoring System days Misc Cefdinir 1 caps by mouth Unknown 300mg Capsules bid for 10 days. Ozempic (0.25 Or 0.5 0.25mg for 2 Unknown MG/Dose) weeks, then 2mg/1.5ML Solution 0.5mg weekly by Pen-Inject injection Metoprolol Tartrate 1 by mouth Unknown 50mg Tablets twice a day Multi Vitamin Daily Unknown Tablets Lantus Solostar 40 units at [facility], 100Unit/ML bedtime MD Solution Humalog Kwikpen 25 units 3x 2boxes Unknown 100Unit/ML daily at meal Solution time. Sertraline HCL 1 po qd 30tabs Unknown 25mg Tablets Hydrochlorothiazide 1 po q day 90tabs Unknown 25mg Tablets Tramadol HCL qid prn 20tabs Unknown 50mg Tablets Omeprazole 1 po qd 30caps Unknown 20mg Capsules DR Hydrocodone/Acetaminophen one or two po 100tabs Unknown 5-500mg every 4 - 6 Tablets hours prn pain Amlodipine Besylate 1 po qd Unknown 5mg Tablets Ramipril 2 po qd 90caps Unknown 10mg Capsules Nystatin/Triamcinolone apply to 60gm Unknown affected area 790274-4.1Unit/GM-% Cream twice daily as needed Simvastatin 1 po qd 30tabs Unknown 20mg Tablets Medications Administered in Office Medication SIG Qnty Indications Ordering Provider Date Depomedrol 40MG Truman Gayle M.D. 06/29/2011 Injection Depomedrol 80MG Truman Gayle M.D. 01/07/2011 Injection Immunizations Description No Information Available Vital Signs Date Vital Result Comment 03/29/2019 1:21pm Height 64 inches 5'4" Weight 119.00 lb reported Heart Rate 85 /min BP Systolic 82 mmHg manually BP Diastolic 58 mmHg manually BP Systolic Sitting 76 mmHg BP Diastolic Sitting 53 mmHg BMI (Body Mass Index) 20.4 kg/m2 01/11/2019 1:29pm Height 64 inches 5'4" Weight 121.00 lb w/o shoes Heart Rate 88 /min BP Systolic Sitting 145 mmHg BP Diastolic Sitting 70 mmHg BMI (Body Mass Index) 20.8 kg/m2 Results Description No Information Available Procedures Date Code Description Status 09/26/2013 687219094 Bone Mineral Density Test Completed Medical Devices Description No Information Available Encounters Type Date Location Provider Dx Diagnosis Office Visit 01/11/2019 [facility] and Brodie Richter MD E11.65 Type 2 diabetes 1:40p Endocrinology [facility] mellitus with hyperglycemia Z79.4 [facility] (current) use of insulin I10 Essential (primary) hypertension Office Visit 12/20/2018 [facility] Afsaneh Richter E11.69 Type 2 diabetes 12:00p Endocrinology [facility] mellitus with [facility] other specified complication Z79.4 intermediate manager (current) use of insulin Assessments Date Code Description Provider 03/29/2019 E11.65 Type 2 diabetes mellitus with hyperglycemia Brodie Richter MD 03/29/2019 Z79.4 intermediate manager (current) use of insulin Brodie Richter MD 03/29/2019 I10 Essential (primary) hypertension Brodie Richter MD 01/11/2019 E11.65 Type 2 diabetes mellitus with hyperglycemia Brodie Richter MD 01/11/2019 Z79.4 [facility] (current) use of insulin Brodie Richter MD 01/11/2019 I10 Essential (primary) hypertension Brodie Richter MD 12/20/2018 E11.69 Type 2 diabetes mellitus with other specified Brodie Richter MD complication 12/20/2018 Z79.4 [facility] (current) use of insulin Brodie Richter MD Plan of Treatment Future Appointment(s):05/11/2019 1:20 pm - Brodie Richter MD at [facility] and Endocrinology [facility]03/29/2019 - Brodie Richter MDE11.65 Type 2 diabetes mellitus with hyperglycemiaNew Medication:V-Go 40 - 1 device dailyHumalog 100 Unit/ML - use with V-Go 40 insulin pump, MDD 100Insulin Syringe/Needle 1ML/29G X 1/2" 29 G X 1/2" 1 ML - for use with V-Go insulin pumpFollow up:3-4 weeksInstructions:1. Continue insulin for now, as follows: - Lantus 40 units once daily - Humalog 20 units once daily 2. Pickup the following items from the pharmacy: - V-Go 40 insulin delivery device (30 total) - Humalog 10ml bottles ( 3 total) - 1mL insulin syringes (30 total) 3. Return for follow-up with hematology nurse educator in this clinic as soon as you are able to obtain the V-Go insulin device 4. Stop Ozempic.Z79.4 intermediate manager (current) use of [id number] Essential (primary) hypertension Functional Status Description No Information Available Mental Status Description No Information Available Referrals Description No Information Available
[2019-05-04] MEDS ORDERED: Oxymetazoline 0.05% NASAL SPR* 15 ML BTL BOTH NARES ONE (18:37)
[2019-05-04] MEDS ORDERED: Lidocaine 2% JELLY* 10 ML JELLY TOPICAL ONE (18:37)
[2019-05-04] MEDS ORDERED: Tranexamic Acid 1,000 MG/10 ML SDV TOPICAL ONE (18:37)
--- NOTE | 2019-05-04 18:46 | ED ---
Throat Pain/Nasal Congestion - HPI Summary HPI Summary: 68 year old female presents with epistaxis today. She just had a valve replacement done yesterday at [facility]. was sent home on plavix. used oxygen at night via nasal cannuli. states developed nose bleed in right nostril today and will not stop for past 3 hours. no history of epistaxis or nasal surgeries. blood is not dripping down the throat. no chest pain or SOB. - History of Current Complaint Chief Complaint: EDEpistaxis Time Seen by Provider: 05/04/19 18:35 - Allergies/Home Medications Allergies/Adverse Reactions: Allergies Allergy/AdvReac Type Severity Reaction Status Date / Time Iodinated Contrast Media Allergy Rash Verified 05/04/19 17:56 [Iodinated Contrast- Oral and IV Dye] naproxen Allergy Rash Verified 05/04/19 17:56 Penicillins Allergy Rash Verified 05/04/19 17:56 ibandronic acid Allergy Unknown Uncoded 05/04/19 17:56 Reaction Details PMH/Surg Hx/FS Hx/Imm Hx Endocrine/Hematology History: Reports: Hx Diabetes Denies: Hx Thyroid Disease Cardiovascular History: Reports: Hx Deep Vein Thrombosis, Hx Hypertension, 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 CHECKED ANNUALLY Denies: Hx Hypercholesterolemia, Hx Peripheral Vascular Disease Respiratory History: Denies: Hx Asthma, Hx Chronic Obstructive Pulmonary Disease (COPD), Other Respiratory Problems/Disorders GI History: Reports: Hx Gastroesophageal Reflux Disease Denies: Hx Ulcer, Other GI Disorders History: Reports: Hx Kidney Stones - MANY YEARS AGO X2, Other Problems/ Disorders - UTI Musculoskeletal History: Denies: Hx Arthritis, Hx Osteoporosis, Other Musculoskeletal History Sensory History: Denies: Hx Cataracts, Hx Contacts or Glasses, Hx Glaucoma, Hx Hearing Aid Opthamlomology History: Denies: Hx Cataracts, Hx Contacts or Glasses, Hx Glaucoma Neurological History: Denies: Hx Headaches, Hx Seizures, Hx Transient Ischemic Attacks (TIA), Other Neuro Impairments/Disorders Psychiatric History: Denies: Hx Anxiety, Hx Depression - Cancer History Hx Chemotherapy: No Hx Radiation Therapy: No - Surgical History Surgery Procedure, Year, and Place: R knee - for torn ligament, damage cartilage (2003) at [facility]. hernia repair. hysterectomy Hx Anesthesia Reactions: No Infectious Disease History: No Infectious Disease History: Denies: Hx Clostridium Difficile, Hx Hepatitis, Hx Human Immunodeficiency Virus (HIV), Hx of Known/Suspected MRSA, Hx Shingles, Hx Tuberculosis, Hx Known/ Suspected VRE, Hx Known/Suspected VRSA, History Other Infectious Disease, Traveled Outside the [place] in Last 30 Days - Family History Known Family History: Positive: Cardiac Disease, Hypertension, Diabetes - Social History Alcohol Use: None Hx Substance Use: No Substance Use Type: Reports: None Hx Tobacco Use: Yes Smoking Status (MU): Former Smoker Have You Smoked in the Last Year: No Review of Systems Negative: Fever Positive: Epistaxis Negative: Chest Pain Negative: Shortness Of Breath All Other Systems Reviewed And Are Negative: Yes Physical Exam Triage Information Reviewed: Yes Vital Signs On Initial Exam: Initial Vitals Temp Pulse Resp BP Pulse Ox 98 F 93 20 178/90 95 05/04/19 17:47 05/04/19 17:47 05/04/19 17:47 05/04/19 17:47 05/04/19 17:47 Vital Signs Reviewed: Yes Appearance: Positive: Well-Appearing Skin: Positive: Dry Head/Face: Positive: Normal Head/Face Inspection Eyes: Positive: Normal, EOMI, MICHAEL, Conjunctiva Clear ENT: Positive: Pharynx normal, TMs normal, Other - blood present in right nares Respiratory/Lung Sounds: Positive: Clear to Auscultation, Breath Sounds Present Cardiovascular: Positive: Normal, RRR Musculoskeletal: Positive: Normal Neurological: Positive: Normal Psychiatric: Positive: Normal Procedures - Sedation Patient Received Moderate/Deep Sedation with Procedure: No Diagnostics - Vital Signs Vital Signs Temp Pulse Resp BP Pulse Ox 05/04/19 17:47 98 F 93 20 178/90 95 - Laboratory Lab Statement: Any lab studies that have been ordered have been reviewed, and results considered in the medical decision making process. Re-Evaluation - Re-Evaluation First Eval Re-Evaluation Time: 20:38 Change: Improved Comment: bleeding stopped after rhinorocket EENT Course/Dx - Course Course Of Treatment: 68 year old female presents with epistaxis today. She just had a valve replacement done yesterday at [facility]. was sent home on plavix. used oxygen at night via nasal cannuli. states developed nose bleed in right nostril today and will not stop for past 3 hours. no history of epistaxis or nasal surgeries. blood is not dripping down the throat. no chest pain or SOB. on exam clotted blood present in right nares. removed clot and used afrin and txa. area seen that could be cauterized. attempted cauterization but bleeding got worst. ended up rhinorocket nares. will place on doxycycline. will have follow up with ENT. patient understand and agrees with plan. - Differential Diagnoses Differential Diagnoses: Epistaxis, Sinusitis, URI/Bronchitis - Diagnoses Provider Diagnoses: Epistaxis Discharge ED - Sign-Out/Discharge Documenting (check all that apply): Patient Departure - Discharge Plan Condition: Good Disposition: HOME Prescriptions: DOXYcycline CAP(*) [DOXYcycline 100MG CAP(*)] 100 mg PO BID #9 cap Patient Education Materials: Nosebleed (ED) Referrals: Santosh Sanford MD [Primary Care Provider] - Og Choudhury MD [Medical Doctor] - Additional Instructions: Take doxycyline twice a day for 5 days Follow up with ENT within three days or return to ED to have removed, call ENT office tomorrow Return to ED if area continues to bleed or any new or worsening symptoms - Billing Disposition and Condition Condition: GOOD Disposition: Home
[2019-05-04] MEDS ORDERED: Lidocaine 2% JELLY* 6 ML JELLY TOPICAL ONE (19:01)
[2019-05-04] MEDS ORDERED: Silver Nitrate/Potassium Nitr* 1 EA STICK TOPICAL ONE ×3 (19:24→19:42)
[2019-05-04] MEDS ORDERED: Silver Nitrate/Potassium Nitr* 1 EA STICK ONE (19:46)
[2019-05-04] MEDS ORDERED: DOXYcycline CAP(*) 100 MG PO ONE (20:13)
[2019-05-04 20:47] VITALS: BP 203/93
== END 2019-05-04 20:46 | disposition home or self-care (01) ==
LOC: ED 17:36
DX: R04.0 Epistaxis (principal); E11.9 Type 2 diabetes mellitus without complications; I10 Essential (primary) hypertension; Z99.81 Dependence on supplemental oxygen; Z79.01 Long term (current) use of anticoagulants; Z95.2 Presence of prosthetic heart valve; Z88.0 Allergy status to penicillin; Z88.8 Allergy status to other drugs, medicaments and biological substances; Z88.6 Allergy status to analgesic agent; Z91.041 Radiographic dye allergy status; Z87.891 Personal history of nicotine dependence
CPT/HCPCS: 30901; 99282; A9270-GY

== ENCOUNTER 2020-02-08 13:54 | Inpatient (IN) ==
[2020-02-08] MEDS ORDERED: diPHENhydraMINE IV 50 MG/ML 1 ml VIAL (BENADRYL) ONE (14:04)
[2020-02-08] MEDS ORDERED: Diazepam INJ CARPUJECT 5 MG/ML IV ONE ×2 (14:14→15:07)
[2020-02-08 14:20] LABS: ABS Eosinophils 0.1 10^3/ul (0-0.6); ABS Lymphocytes 1.3 10^3/ul (1.0-4.8); ABS Monocytes 0.6 10^3/ul (0-0.8); ABS Neutrophils 5.1 10^3/ul (1.5-7.7); Eosinophil % 0.7 %; Hematocrit 34 % (35-47); Hemoglobin 11.3 g/dL (12.0-16.0); Lymphocyte % 18.2 %; Mean Corpuscular HGB Conc 34 g/dL (31-36); Mean Corpuscular Hemoglobin 30 pg (27-31); Mean Corpuscular Volume 88 fL (80-97); Mean Platelet Volume 8.3 fL (7.4-10.4); Platelet Count 300 10^3/uL (150-450); Red Blood Count 3.83 10^6 /uL (3.70-4.87); Red Cell Distribution Width 15 % (10-15)
[2020-02-08] MEDS ORDERED: Diazepam INJ CARPUJECT 5 MG/ML ONE (14:21)
[2020-02-08] MEDS ORDERED: ALTEPLASE IV ONE ×3 (14:22→14:35)
[2020-02-08 14:36] LABS: Activated Partial Thrombo Time 27.7 seconds (26.0-38.0); INR 0.95 (0.82-1.09)
[2020-02-08] MEDS ORDERED: diPHENhydraMINE IV 50 MG/ML 1 ml VIAL (BENADRYL) IV ONE (14:43)
[2020-02-08 14:45] LABS: BUN/Creatinine Ratio 31.8 (8-20); EGFR African American 76.6 (>60); EGFR Non-African American 63.3 (>60); Magnesium 1.8 mg/dL (1.9-2.7); Potassium 4.2 mmol/L (3.5-5.0)
[2020-02-08 14:47] LABS: Troponin I 0.02 ng/mL (<0.03)
[2020-02-08] MEDS ORDERED: Dextrose 50% Syringe 50 ml 25 GM/50 ML SYRINGE IV PUSH PRN (15:07)
[2020-02-08 15:13] LABS: Urine Appearance Turbid; Urine Bilirubin Negative (Negative); Urine Blood 1+ (Negative); Urine Color Yellow; Urine Glucose 3+(>=500 mg/dL) (Negative); Urine Ketones Negative (Negative); Urine Nitrite Negative (Negative); Urine Protein 2+(100 mg/dL) (Negative); Urine Specific Gravity 1.033 (1.010-1.030); Urine Urobilinogen Negative (Negative)
[2020-02-08 15:15] LABS: TSH Ultra Thyroid Stim Horm 1.1 mcIU/mL (0.34-5.60)
[2020-02-08 15:17] LABS: Urine Bacteria 1+ (Absent); Urine Red Blood Cell 3+(>10/hpf) (Absent); Urine White Blood Cell 3+(>20/hpf) (Absent)
[2020-02-08] MEDS ORDERED: cefTRIAXone 1 gm/50 mL NS BAG 1 GM/50 ML BAG IVPB ONE (15:34)
[2020-02-08 15:49] LABS: Urine Benzodiazepine Screen None Detected (None Detect); Urine Cannabinoids Screen None Detected (None Detect); Urine Opiates Screen None Detected (None Detect)
[2020-02-08] MEDS ORDERED: Insulin Infusion 100unit/100mL 100 UNIT/100 ML BAG IV SCH (18:00)
[2020-02-08] MEDS ORDERED: Magnesium Sulfate 2 gm BAG 2 GM/50 ML BAG IVPB ONE (18:41)
[2020-02-08] MEDS ORDERED: Haloperidol 5 mg/ml SDV IV/IM 5 MG/ML AMP IV SLOW PU ONE (19:00)
[2020-02-08] MEDS: Lactated Ringers 1000 ml BAG 1,000 ML IV SCH (19:04)
[2020-02-08] MEDS ORDERED: Haloperidol 5 mg/ml SDV IV/IM 5 MG/ML AMP ONE (19:13)
[2020-02-08] MEDS: niCARdipine 0.1MG/ML IVPREMIX 20 MG/200 ML BAG IV SCH (19:14)
[2020-02-08] MEDS ORDERED: Lorazepam PYXIS KEY PRN (21:10)
[2020-02-08] MEDS ORDERED: LORazepam 2 mg VIAL 1 ml IV PUSH ONE (21:10)
[2020-02-08] MEDS ORDERED: Lorazepam PYXIS KEY ONE (21:18)
[2020-02-08] MEDS ORDERED: LORazepam 2 mg VIAL 1 ml ONE (21:19)
[2020-02-08] MEDS: Insulin GLARGINE 100 un/ml 10 ml VIAL SUBCUT SCH (23:39)
[2020-02-09] MEDS ORDERED: Haloperidol 5 mg/ml SDV IV/IM 5 MG/ML AMP IV SLOW PU PRN ×2 (01:03→01:19)
[2020-02-09 04:18] LABS: ABS Basophils 0.1 10^3/ul (0-0.2); ABS Lymphocytes 2.2 10^3/ul (1.0-4.8); ABS Monocytes 1.1 10^3/ul (0-0.8); ABS Neutrophils 7.9 10^3/ul (1.5-7.7); Eosinophil % 0.3 %; Hematocrit 34 % (35-47); Hemoglobin 11.7 g/dL (12.0-16.0); Lymphocyte % 19.7 %; Mean Corpuscular HGB Conc 35 g/dL (31-36); Mean Corpuscular Hemoglobin 30 pg (27-31); Mean Corpuscular Volume 85 fL (80-97); Mean Platelet Volume 7.9 fL (7.4-10.4); Platelet Count 295 10^3/uL (150-450); Red Blood Count 3.97 10^6 /uL (3.70-4.87); Red Cell Distribution Width 15 % (10-15); White Blood Count 11.3 10^3/uL (3.5-10.8)
[2020-02-09] MEDS: Lactated Ringers 1000 ml BAG 1,000 ML IV SCH (04:22)
[2020-02-09 04:33] LABS: Albumin 3.4 g/dL (3.2-5.2); Albumin/Globulin Ratio 1.2 (1-3); BUN/Creatinine Ratio 32.8 (8-20); Calcium 9.1 mg/dL (8.6-10.3); EGFR Non-African American 86.8 (>60); Globulin 2.8 g/dL (2-4); Magnesium 2.2 mg/dL (1.9-2.7); Phosphorus 2.8 mg/dL (2.5-5.0); Potassium 3.5 mmol/L (3.5-5.0); Total Bilirubin 0.4 mg/dL (0.2-1.0); Total Protein 6.2 g/dL (6.4-8.9)
[2020-02-09] MEDS ORDERED: Lactated Ringers 1000 ml BAG 1,000 ML IV SCH (07:04)
[2020-02-09] MEDS: KCL 10 MEQ/50 ML IVPREMIX 10 MEQ/50 ML BAG IV SCH ×6 (08:28→21:01)
[2020-02-09] MEDS ORDERED: Dextrose 50% Syringe 50 ml 25 GM/50 ML SYRINGE IV PUSH PRN (14:43)
[2020-02-09] MEDS: cefTRIAXone 1 gm/50 mL NS BAG 1 GM/50 ML BAG IVPB SCH (15:25)
[2020-02-09] MEDS: Pantoprazole VIAL 40 MG VIAL IV SCH (15:26)
[2020-02-09] MEDS: niCARdipine 0.1MG/ML IVPREMIX 20 MG/200 ML BAG IV SCH (15:26)
[2020-02-09 16:46] LABS: BUN/Creatinine Ratio 31.7 (8-20); Calcium 8.4 mg/dL (8.6-10.3); EGFR African American 119.2 (>60); EGFR Non-African American 98.5 (>60); Potassium 3.5 mmol/L (3.5-5.0)
[2020-02-09] MEDS ORDERED: Aspirin EC 325 mg TAB.EC PO SCH (17:00)
[2020-02-09] MEDS: Nystatin TOP POWDER 15 GM BTL TOPICAL SCH (20:42)
[2020-02-10] MEDS: Insulin GLARGINE 100 un/ml 10 ml VIAL SUBCUT SCH (00:21)
[2020-02-10 05:27] LABS: ABS Basophils 0.1 10^3/ul (0-0.2); ABS Eosinophils 0.1 10^3/ul (0-0.6); ABS Lymphocytes 2.1 10^3/ul (1.0-4.8); ABS Monocytes 0.7 10^3/ul (0-0.8); ABS Neutrophils 4.3 10^3/ul (1.5-7.7); Eosinophil % 1.7 %; Hematocrit 32 % (35-47); Hemoglobin 10.7 g/dL (12.0-16.0); Lymphocyte % 28.9 %; Mean Corpuscular HGB Conc 34 g/dL (31-36); Mean Corpuscular Hemoglobin 30 pg (27-31); Mean Corpuscular Volume 87 fL (80-97); Mean Platelet Volume 7.7 fL (7.4-10.4); Platelet Count 245 10^3/uL (150-450); Red Blood Count 3.63 10^6 /uL (3.70-4.87); Red Cell Distribution Width 15 % (10-15); White Blood Count 7.3 10^3/uL (3.5-10.8)
[2020-02-10 05:47] LABS: Albumin 2.9 g/dL (3.2-5.2); Calcium 8.8 mg/dL (8.6-10.3); Potassium 4.2 mmol/L (3.5-5.0); Total Bilirubin 0.3 mg/dL (0.2-1.0)
[2020-02-10 05:54] LABS: Albumin/Globulin Ratio 1.1 (1-3); BUN/Creatinine Ratio 35.5 (8-20); EGFR African American 114.8 (>60); EGFR Non-African American 94.9 (>60); Globulin 2.6 g/dL (2-4); HDL Cholesterol 40.7 mg/dL; Phosphorus 3.4 mg/dL (2.5-5.0); Total Protein 5.5 g/dL (6.4-8.9)
[2020-02-10] MEDS ORDERED: Labetalol IV 5 MG/ML 20 ml VIAL IV PUSH PRN ×2 (06:51→09:37)
[2020-02-10] MEDS: Nystatin TOP POWDER 15 GM BTL TOPICAL SCH ×2 (10:26→20:54)
[2020-02-10] MEDS: Pantoprazole VIAL 40 MG VIAL IV SCH (16:34)
[2020-02-10] MEDS: cefTRIAXone 1 gm/50 mL NS BAG 1 GM/50 ML BAG IVPB SCH (16:34)
[2020-02-10] MEDS ORDERED: Insulin GLARGINE 100 un/ml 10 ml VIAL SUBCUT SCH (17:30)
[2020-02-10] MEDS ORDERED: Insulin GLARGINE 100 un/ml 10 ml VIAL ONE (17:35)
[2020-02-11 06:28] LABS: ABS Eosinophils 0.2 10^3/ul (0-0.6); ABS Lymphocytes 2.6 10^3/ul (1.0-4.8); ABS Monocytes 0.5 10^3/ul (0-0.8); ABS Neutrophils 2.7 10^3/ul (1.5-7.7); Eosinophil % 3.2 %; Hematocrit 29 % (35-47); Lymphocyte % 42.6 %; Mean Corpuscular HGB Conc 35 g/dL (31-36); Mean Corpuscular Hemoglobin 30 pg (27-31); Mean Corpuscular Volume 86 fL (80-97); Mean Platelet Volume 7.5 fL (7.4-10.4); Platelet Count 215 10^3/uL (150-450); Red Blood Count 3.35 10^6 /uL (3.70-4.87); Red Cell Distribution Width 15 % (10-15); White Blood Count 6.1 10^3/uL (3.5-10.8)
[2020-02-11 06:57] LABS: ALT 10 U/L (7-52); AST 12 U/L (13-39); Albumin/Globulin Ratio 1.2 (1-3); Alkaline Phosphatase 102 U/L (34-104); Anion Gap 6 mmol/L (2-11); BUN/Creatinine Ratio 43.9 (8-20); Blood Urea Nitrogen 29 mg/dL (6-24); CO2 Carbon Dioxide 26 mmol/L (22-32); Calcium 9.2 mg/dL (8.6-10.3); Chloride 105 mmol/L (101-111); EGFR African American 106.8 (>60); EGFR Non-African American 88.3 (>60); Globulin 2.5 g/dL (2-4); Glucose 132 mg/dL (70-100); Magnesium 1.9 mg/dL (1.9-2.7); Phosphorus 4.8 mg/dL (2.5-5.0); Potassium 4.2 mmol/L (3.5-5.0); Sodium 137 mmol/L (135-145); Total Protein 5.5 g/dL (6.4-8.9)
[2020-02-11] MEDS: Nystatin TOP POWDER 15 GM BTL TOPICAL SCH ×2 (10:32→22:15)
[2020-02-11] MEDS: Pantoprazole VIAL 40 MG VIAL IV SCH (15:12)
[2020-02-11] MEDS: cefTRIAXone 1 gm/50 mL NS BAG 1 GM/50 ML BAG IVPB SCH (15:16)
[2020-02-11 17:31] LABS: Troponin I 0.07 ng/mL (<0.03)
[2020-02-11 18:47] LABS: Troponin I 0.04 ng/mL (<0.03)
[2020-02-11] MEDS: Insulin GLARGINE 100 un/ml 10 ml VIAL SUBCUT SCH (20:02)
[2020-02-11] MEDS: Heparin 5000 UNITS/ML 1 mL VIAL SUBCUT SCH (22:27)
[2020-02-12] MEDS: Heparin 5000 UNITS/ML 1 mL VIAL SUBCUT SCH ×3 (05:19→22:36)
[2020-02-12 06:47] LABS: ABS Eosinophils 0.2 10^3/ul (0-0.6); ABS Lymphocytes 1.8 10^3/ul (1.0-4.8); ABS Monocytes 0.4 10^3/ul (0-0.8); ABS Neutrophils 2.9 10^3/ul (1.5-7.7); Eosinophil % 2.9 %; Hematocrit 30 % (35-47); Hemoglobin 10.5 g/dL (12.0-16.0); Lymphocyte % 33.6 %; Mean Corpuscular HGB Conc 35 g/dL (31-36); Mean Corpuscular Hemoglobin 30 pg (27-31); Mean Corpuscular Volume 86 fL (80-97); Mean Platelet Volume 7.6 fL (7.4-10.4); Platelet Count 232 10^3/uL (150-450); Red Blood Count 3.52 10^6 /uL (3.70-4.87); Red Cell Distribution Width 14 % (10-15); White Blood Count 5.2 10^3/uL (3.5-10.8)
[2020-02-12 07:12] LABS: Albumin/Globulin Ratio 1.2 (1-3); BUN/Creatinine Ratio 40.7 (8-20); EGFR African American 134.7 (>60); EGFR Non-African American 111.3 (>60); Globulin 2.6 g/dL (2-4); Magnesium 1.8 mg/dL (1.9-2.7); Phosphorus 4.7 mg/dL (2.5-5.0); Total Bilirubin 0.3 mg/dL (0.2-1.0); Total Protein 5.6 g/dL (6.4-8.9)
[2020-02-12] MEDS: Nystatin TOP POWDER 15 GM BTL TOPICAL SCH ×2 (08:31→22:38)
[2020-02-12] MEDS: Pantoprazole VIAL 40 MG VIAL IV SCH (13:55)
[2020-02-12] MEDS: cefTRIAXone 1 gm/50 mL NS BAG 1 GM/50 ML BAG IVPB SCH (15:19)
[2020-02-12] MEDS: Insulin GLARGINE 100 un/ml 10 ml VIAL SUBCUT SCH (17:14)
[2020-02-13] MEDS: Heparin 5000 UNITS/ML 1 mL VIAL SUBCUT SCH ×2 (05:50→15:37)
[2020-02-13 07:13] LABS: CO2 Carbon Dioxide 27 mmol/L (22-32); Calcium 8.8 mg/dL (8.6-10.3); Chloride 104 mmol/L (101-111); Sodium 135 mmol/L (135-145)
[2020-02-13 07:15] LABS: Hematocrit 31 % (35-47); Hemoglobin 10.4 g/dL (12.0-16.0); Mean Corpuscular HGB Conc 34 g/dL (31-36); Mean Corpuscular Hemoglobin 30 pg (27-31); Mean Corpuscular Volume 88 fL (80-97); Mean Platelet Volume 7.7 fL (7.4-10.4); Platelet Count 276 10^3/uL (150-450); Red Blood Count 3.52 10^6 /uL (3.70-4.87); Red Cell Distribution Width 14 % (10-15); White Blood Count 4.5 10^3/uL (3.5-10.8)
[2020-02-13 07:19] LABS: BUN/Creatinine Ratio 35.2 (8-20); Blood Urea Nitrogen 19 mg/dL (6-24); EGFR African American 134.7 (>60); EGFR Non-African American 111.3 (>60); Glucose 174 mg/dL (70-100)
[2020-02-13 07:27] LABS: Anion Gap 4 mmol/L (2-11)
[2020-02-13 07:45] LABS: % Iron Saturation 17 % (15-55); Iron 54 ug/dL (50-212); Total Iron Binding Capacity 325 mcg/dL (250-450); Transferrin 232 mg/dL (203-362); Unsaturated Iron Binding < 310 ug/dL
[2020-02-13 08:07] LABS: Ferritin 43.2 ng/mL (11-307)
[2020-02-13 08:11] LABS: Folate 11.24 ng/mL (>3.99); Vitamin B12 399 pg/mL (180-914)
[2020-02-13] MEDS: Nystatin TOP POWDER 15 GM BTL TOPICAL SCH (09:44)
[2020-02-13 11:21] LABS: Potassium Redraw 4.1 mmol/L (3.5-5.0)
[2020-02-13 15:09] VITALS: BP 171/75
[2020-02-13] MEDS: Pantoprazole VIAL 40 MG VIAL IV SCH (15:37)
[2020-02-13] MEDS: cefTRIAXone 1 gm/50 mL NS BAG 1 GM/50 ML BAG IVPB SCH (15:37)
[2020-02-13] MEDS: Insulin GLARGINE 100 un/ml 10 ml VIAL SUBCUT SCH (17:07)
== END 2020-02-13 18:35 | disposition home or self-care (01) | DRG 61 ==
LOC: ED 13:54 → ICU 17:44 → MEDTELE 02-10 19:36
PROVIDERS: ADMIT Internal Medicine; ATTEND Internal Medicine

== ENCOUNTER 2020-03-23 11:46 | Inpatient (IN) ==
[2020-03-23 12:53] LABS: ABS Lymphocytes 0.8 10^3/ul (1.0-4.8); ABS Monocytes 1.5 10^3/ul (0-0.8); Hematocrit 33 % (35-47); Hemoglobin 11.3 g/dL (12.0-16.0); Lymphocyte % 4.5 %; Mean Corpuscular HGB Conc 34 g/dL (31-36); Mean Corpuscular Hemoglobin 29 pg (27-31); Mean Corpuscular Volume 86 fL (80-97); Mean Platelet Volume 7.7 fL (7.4-10.4); Platelet Count 287 10^3/uL (150-450); Red Blood Count 3.89 10^6 /uL (3.70-4.87); Red Cell Distribution Width 14 % (10-15); White Blood Count 17.2 10^3/uL (3.5-10.8)
[2020-03-23 13:11] LABS: ALT 9 U/L (7-52); AST 9 U/L (13-39); Albumin 3.5 g/dL (3.2-5.2); Albumin/Globulin Ratio 0.9 (1-3); Alkaline Phosphatase 130 U/L (34-104); Anion Gap 12 mmol/L (2-11); BUN/Creatinine Ratio 31.6 (8-20); Blood Urea Nitrogen 36 mg/dL (6-24); C Reactive Protein 310.69 mg/L (<8.01); CO2 Carbon Dioxide 26 mmol/L (22-32); Calcium 9.8 mg/dL (8.6-10.3); Chloride 87 mmol/L (101-111); Creatine Kinase 73 U/L (10-223); EGFR African American 56.9 (>60); Globulin 3.8 g/dL (2-4); Potassium 3.9 mmol/L (3.5-5.0); Sodium 125 mmol/L (135-145); Total Protein 7.3 g/dL (6.4-8.9)
[2020-03-23 13:31] LABS: Troponin I 0.05 ng/mL (<0.03)
[2020-03-23 13:48] LABS: Alcohol, S < 10 mg/dL (<10)
[2020-03-23] MEDS ORDERED: cefTRIAXone 1 gm/50 mL NS BAG 1 GM/50 ML BAG IV ONE (15:38)
[2020-03-23] MEDS ORDERED: NS 0.9% 1000 ml BAG 1,000 ML IV ONE (16:02)
[2020-03-23 17:20] LABS: Urine Appearance Cloudy; Urine Bilirubin Negative (Negative); Urine Blood 2+ (Negative); Urine Color Yellow; Urine Glucose 3+(>=500 mg/dL) (Negative); Urine Ketones Trace (Negative); Urine Nitrite Negative (Negative); Urine Protein 2+(100 mg/dL) (Negative); Urine Specific Gravity 1.018 (1.010-1.030); Urine Urobilinogen Negative (Negative)
[2020-03-23 17:25] LABS: Urine Bacteria 1+ (Absent); Urine Red Blood Cell 3+(>10/hpf) (Absent); Urine Squamous Epithelial Cell Present (Absent); Urine White Blood Cell 3+(>20/hpf) (Absent)
[2020-03-23] MEDS ORDERED: NS 0.9% 1000 ml BAG 1,000 ML IV SCH (17:30)
[2020-03-23] MEDS ORDERED: Insulin Infusion 100unit/100mL 100 UNIT/100 ML BAG IV SCH (18:00)
[2020-03-23] MEDS: NS 0.9% 1000 ml BAG 1,000 ML IV SCH (18:22)
[2020-03-23 20:28] LABS: Anion Gap 11 mmol/L (2-11); Blood Urea Nitrogen 30 mg/dL (6-24); CO2 Carbon Dioxide 24 mmol/L (22-32); Calcium 8.9 mg/dL (8.6-10.3); Chloride 98 mmol/L (101-111); EGFR African American 86.8 (>60); EGFR Non-African American 71.7 (>60); Glucose 271 mg/dL (70-100); Potassium 3.2 mmol/L (3.5-5.0); Sodium 133 mmol/L (135-145)
[2020-03-23 20:35] LABS: Troponin I 0.04 ng/mL (<0.03)
[2020-03-23] MEDS: metroNIDAZOLE IV 500 MG/100ML 500 MG/100 ML BAG IVPB SCH (21:14)
[2020-03-23] MEDS: Heparin 5000 UNITS/ML 1 mL VIAL SUBCUT SCH (21:14)
[2020-03-23] MEDS ORDERED: Amikacin IV 500 MG/2 ML VIAL IVPB ONE (21:15)
[2020-03-23] MEDS ORDERED: Potassium Chlor 20 meq TAB.ER PO ONE (21:18)
[2020-03-23] MEDS ORDERED: Meropenem 1 GM PREMIX(*) 1 GM/50 ML BAG IV ONE (22:00)
[2020-03-23] MEDS ORDERED: AMIKACIN IVPB ONE (22:00)
[2020-03-23] MEDS ORDERED: NS 0.9% IVPB ONE (22:00)
[2020-03-23] MEDS ORDERED: Meropenem 500MG PREMIX(*) 500 MG/50 ML BAG IV SCH (23:00)
[2020-03-24 00:40] LABS: Anion Gap 10 mmol/L (2-11); Blood Urea Nitrogen 30 mg/dL (6-24); CO2 Carbon Dioxide 21 mmol/L (22-32); Calcium 8.4 mg/dL (8.6-10.3); Chloride 101 mmol/L (101-111); EGFR African American 92.2 (>60); EGFR Non-African American 76.2 (>60); Glucose 264 mg/dL (70-100); Potassium 3.4 mmol/L (3.5-5.0); Sodium 132 mmol/L (135-145)
[2020-03-24 02:14] LABS: Troponin I 0.03 ng/mL (<0.03)
[2020-03-24 04:12] LABS: ABS Lymphocytes 1.4 10^3/ul (1.0-4.8); ABS Monocytes 0.7 10^3/ul (0-0.8); ABS Neutrophils 9.5 10^3/ul (1.5-7.7); Eosinophil % 0.2 %; Hematocrit 27 % (35-47); Hemoglobin 9.1 g/dL (12.0-16.0); Lymphocyte % 12.4 %; Mean Corpuscular HGB Conc 34 g/dL (31-36); Mean Corpuscular Hemoglobin 30 pg (27-31); Mean Corpuscular Volume 87 fL (80-97); Mean Platelet Volume 7.7 fL (7.4-10.4); Platelet Count 226 10^3/uL (150-450); Red Blood Count 3.07 10^6 /uL (3.70-4.87); Red Cell Distribution Width 14 % (10-15); White Blood Count 11.6 10^3/uL (3.5-10.8)
[2020-03-24 04:42] LABS: BUN/Creatinine Ratio 39.1 (8-20); Calcium 8.5 mg/dL (8.6-10.3); EGFR African American 101.5 (>60); EGFR Non-African American 83.9 (>60); Potassium 3.5 mmol/L (3.5-5.0)
[2020-03-24] MEDS: Meropenem 500MG PREMIX(*) 500 MG/50 ML BAG IV SCH ×3 (05:32→21:57)
[2020-03-24] MEDS: metroNIDAZOLE IV 500 MG/100ML 500 MG/100 ML BAG IVPB SCH (05:32)
[2020-03-24] MEDS: Heparin 5000 UNITS/ML 1 mL VIAL SUBCUT SCH ×3 (05:32→21:50)
[2020-03-24] MEDS: KCL 10 MEQ/50 ML IVPREMIX 10 MEQ/50 ML BAG IV SCH ×2 (09:43→11:17)
[2020-03-24] MEDS ORDERED: Dextrose 50% Syringe 50 ml 25 GM/50 ML SYRINGE IV PUSH PRN (09:43)
[2020-03-24] MEDS: Insulin GLARGINE 100 un/ml 10 ml VIAL SUBCUT SCH (10:36)
[2020-03-24] MEDS ORDERED: cefTRIAXone 1 gm/50 mL NS BAG 1 GM/50 ML BAG IVPB SCH (15:00)
[2020-03-24] MEDS ORDERED: Vancomycin per Pharmacy 1 EA NOTE FOLLOW UP PRN (22:04)
[2020-03-24] MEDS ORDERED: Vancomycin 1,000 MG in NS 0.9% 250 ml 250 ML IVPB ONE (22:30)
[2020-03-24] MEDS: NS 0.9% 1000 ml BAG 1,000 ML IV SCH (22:31)
[2020-03-25] MEDS: Ondansetron 4 mg VIAL 2 MG/ML 2 ml VIAL IV PRN (04:45)
[2020-03-25] MEDS ORDERED: Morphine 2 MG/ML SYRINGE IV PRN (04:49)
[2020-03-25] MEDS: Heparin 5000 UNITS/ML 1 mL VIAL SUBCUT SCH ×3 (05:10→22:00)
[2020-03-25] MEDS: Meropenem 500MG PREMIX(*) 500 MG/50 ML BAG IV SCH ×2 (05:11→13:45)
[2020-03-25] MEDS: Vancomycin 750 MG in NS 0.9% 250 ML IVPB SCH ×3 (05:46→22:00)
[2020-03-25 06:53] LABS: ABS Lymphocytes 1.3 10^3/ul (1.0-4.8); ABS Monocytes 1.2 10^3/ul (0-0.8); ABS Neutrophils 10.2 10^3/ul (1.5-7.7); Eosinophil % 0.2 %; Hematocrit 26 % (35-47); Hemoglobin 8.7 g/dL (12.0-16.0); Lymphocyte % 10.2 %; Mean Corpuscular HGB Conc 34 g/dL (31-36); Mean Corpuscular Hemoglobin 29 pg (27-31); Mean Corpuscular Volume 86 fL (80-97); Mean Platelet Volume 7.9 fL (7.4-10.4); Platelet Count 223 10^3/uL (150-450); Red Blood Count 3.01 10^6 /uL (3.70-4.87); Red Cell Distribution Width 14 % (10-15); White Blood Count 12.7 10^3/uL (3.5-10.8)
[2020-03-25 07:00] LABS: BUN/Creatinine Ratio 27.3 (8-20); Calcium 8.3 mg/dL (8.6-10.3); EGFR African American 131.8 (>60); Potassium 3.7 mmol/L (3.5-5.0)
[2020-03-25] MEDS: NS 0.9% 1000 ml BAG 1,000 ML IV SCH ×3 (07:27→22:00)
[2020-03-25] MEDS: Insulin GLARGINE 100 un/ml 10 ml VIAL SUBCUT SCH (09:36)
[2020-03-25 11:17] LABS: Glucose 598 mg/dL (70-100)
[2020-03-25] MEDS ORDERED: Insulin GLARGINE 100 un/ml 10 ml VIAL SUBCUT ONE (12:15)
[2020-03-25 12:33] LABS: C Reactive Protein 156.25 mg/L (<8.01)
[2020-03-25] MEDS ORDERED: Cefepime ADVAN 1 GM in NS 0.9% 50 ML 50 ML IVPB SCH (21:00)
[2020-03-26] MEDS: NS 0.9% 1000 ml BAG 1,000 ML IV SCH ×3 (05:55→21:13)
[2020-03-26] MEDS: Heparin 5000 UNITS/ML 1 mL VIAL SUBCUT SCH ×3 (05:56→22:36)
[2020-03-26] MEDS ORDERED: Vancomycin Trough Check NOTE FOLLOW UP ONE (06:00)
[2020-03-26 07:01] LABS: ABS Basophils 0.1 10^3/ul (0-0.2); ABS Eosinophils 0.1 10^3/ul (0-0.6); ABS Monocytes 1.2 10^3/ul (0-0.8); ABS Neutrophils 10.4 10^3/ul (1.5-7.7); Eosinophil % 0.6 %; Hematocrit 28 % (35-47); Hemoglobin 9.4 g/dL (12.0-16.0); Lymphocyte % 14.3 %; Mean Corpuscular HGB Conc 34 g/dL (31-36); Mean Corpuscular Hemoglobin 29 pg (27-31); Mean Corpuscular Volume 86 fL (80-97); Mean Platelet Volume 7.4 fL (7.4-10.4); Platelet Count 255 10^3/uL (150-450); Red Blood Count 3.24 10^6 /uL (3.70-4.87); Red Cell Distribution Width 14 % (10-15); White Blood Count 13.7 10^3/uL (3.5-10.8)
[2020-03-26 07:20] LABS: Calcium 8.4 mg/dL (8.6-10.3); EGFR African American 147.2 (>60); EGFR Non-African American 121.6 (>60); Potassium 3.3 mmol/L (3.5-5.0)
[2020-03-26 07:22] LABS: Vancomycin Trough 12.1 mcg/mL
[2020-03-26] MEDS: KCL 20 MEQ/100 ML IVPREMIX 20 MEQ/100 ML BAG IV SCH ×2 (08:50→12:15)
[2020-03-26] MEDS: Vancomycin 750 MG in NS 0.9% 250 ML IVPB SCH ×3 (08:50→22:46)
[2020-03-26] MEDS: Cefepime 1 GM in Dextrose 1 GM/50 ML BAG IV SCH ×2 (08:51→20:34)
[2020-03-26] MEDS ORDERED: Insulin GLARGINE 100 un/ml 10 ml VIAL SUBCUT SCH ×2 (10:00)
[2020-03-26 10:28] LABS: C Reactive Protein 150.87 mg/L (<8.01)
[2020-03-26] MEDS ORDERED: hydrALAZINE 20 mg/ml 1 ML Vial IV IV SLOW PU PRN (14:49)
[2020-03-26] MEDS ORDERED: hydrALAZINE 20 mg/ml 1 ML Vial IV IV SLOW PU ONE (15:24)
[2020-03-26] MEDS ORDERED: NS 0.9% 1000 ml BAG 1,000 ML IV SCH (20:50)
[2020-03-27] MEDS ORDERED: Iodixanol (CONTRAST) 320 MG/ML 100 ML SDV IV ONE (03:21)
[2020-03-27] MEDS: Heparin 5000 UNITS/ML 1 mL VIAL SUBCUT SCH ×3 (05:36→20:47)
[2020-03-27] MEDS: Vancomycin 750 MG in NS 0.9% 250 ML IVPB SCH ×3 (06:04→22:25)
[2020-03-27 07:11] LABS: ABS Monocytes 0.3 10^3/ul (0-0.8); ABS Neutrophils 10.6 10^3/ul (1.5-7.7); Hematocrit 30 % (35-47); Hemoglobin 10.3 g/dL (12.0-16.0); Lymphocyte % 8.3 %; Mean Corpuscular HGB Conc 34 g/dL (31-36); Mean Corpuscular Hemoglobin 29 pg (27-31); Mean Corpuscular Volume 85 fL (80-97); Mean Platelet Volume 7.7 fL (7.4-10.4); Platelet Count 269 10^3/uL (150-450); Red Blood Count 3.55 10^6 /uL (3.70-4.87); Red Cell Distribution Width 14 % (10-15); White Blood Count 11.9 10^3/uL (3.5-10.8)
[2020-03-27 07:28] LABS: BUN/Creatinine Ratio 33.3 (8-20); Calcium 8.5 mg/dL (8.6-10.3); EGFR African American 143.8 (>60); EGFR Non-African American 118.9 (>60); Potassium 3.6 mmol/L (3.5-5.0)
[2020-03-27] MEDS ORDERED: Insulin GLARGINE 100 un/ml 10 ml VIAL SUBCUT SCH (09:00)
[2020-03-27] MEDS: Cefepime 1 GM in Dextrose 1 GM/50 ML BAG IV SCH ×2 (09:38→20:53)
[2020-03-27] MEDS: NS 0.9% 1000 ml BAG 1,000 ML IV SCH (09:41)
[2020-03-27 09:46] LABS: C Reactive Protein 120.51 mg/L (<8.01)
[2020-03-27 10:32] LABS: INR 1.1 (0.82-1.09)
[2020-03-27] MEDS ORDERED: Insulin GLARGINE 100 un/ml 10 ml VIAL SUBCUT ONE (11:56)
[2020-03-27] MEDS ORDERED: fentaNYL 100 mcg/2 ml 50 MCG/ML VIAL ONE (16:10)
[2020-03-27] MEDS ORDERED: Propofol 10 MG/ML 20 ML BTL ONE (16:10)
[2020-03-27] MEDS ORDERED: Lidocaine 2% PF 5 ML VIAL ONE (16:10)
[2020-03-27] MEDS ORDERED: Midazolam 2 mg/2 ml VIAL 1 mg/ml 2 ml VIAL (2 mg) ONE (16:13)
[2020-03-27] MEDS ORDERED: Naloxone 0.4 mg VIAL 0.4 mg/ml 1 ml VIAL IV PRN (16:29)
[2020-03-27] MEDS ORDERED: Bupivacaine 0.5% SDV PF 30ML VIAL ONE (16:29)
[2020-03-27] MEDS ORDERED: Ondansetron 4 mg VIAL 2 MG/ML 2 ml VIAL IV PRN (16:29)
[2020-03-27] MEDS ORDERED: fentaNYL 100 mcg/2 ml 50 MCG/ML VIAL IV PRN (16:29)
[2020-03-27] MEDS ORDERED: HYDROmorphone 1 MG/1 ML SYRINGE IV PRN (16:29)
[2020-03-28] MEDS: Heparin 5000 UNITS/ML 1 mL VIAL SUBCUT SCH ×3 (05:52→20:14)
[2020-03-28] MEDS ORDERED: Vancomycin Trough Check NOTE FOLLOW UP ONE (06:00)
[2020-03-28 07:10] LABS: ABS Lymphocytes 2.2 10^3/ul (1.0-4.8); ABS Neutrophils 8.5 10^3/ul (1.5-7.7); Eosinophil % 0.2 %; Hematocrit 30 % (35-47); Hemoglobin 10.1 g/dL (12.0-16.0); Lymphocyte % 18.7 %; Mean Corpuscular HGB Conc 34 g/dL (31-36); Mean Corpuscular Hemoglobin 29 pg (27-31); Mean Corpuscular Volume 85 fL (80-97); Mean Platelet Volume 7.5 fL (7.4-10.4); Platelet Count 306 10^3/uL (150-450); Red Blood Count 3.51 10^6 /uL (3.70-4.87); Red Cell Distribution Width 14 % (10-15); White Blood Count 11.7 10^3/uL (3.5-10.8)
[2020-03-28 07:26] LABS: BUN/Creatinine Ratio 34.8 (8-20); Calcium 8.3 mg/dL (8.6-10.3); EGFR Non-African American 133.9 (>60); Potassium 2.9 mmol/L (3.5-5.0)
[2020-03-28 07:27] LABS: Vancomycin Trough 12.8 mcg/mL
[2020-03-28 08:14] LABS: Magnesium 1.6 mg/dL (1.9-2.7)
[2020-03-28] MEDS ORDERED: Magnesium Sulfate IV 3 GM in NS 0.9% 100 ml BAG 100 ML IVPB ONE (09:06)
[2020-03-28] MEDS: Ondansetron 4 mg VIAL 2 MG/ML 2 ml VIAL IV PRN (09:20)
[2020-03-28] MEDS: Insulin GLARGINE 100 un/ml 10 ml VIAL SUBCUT SCH (09:22)
[2020-03-28] MEDS: Cefepime 1 GM in Dextrose 1 GM/50 ML BAG IV SCH ×2 (09:25→20:21)
[2020-03-28] MEDS: KCL 20 MEQ/100 ML IVPREMIX 20 MEQ/100 ML BAG IV SCH ×3 (09:43→17:22)
[2020-03-28] MEDS: metroNIDAZOLE IV 500 MG/100ML 500 MG/100 ML BAG IVPB SCH ×2 (10:16→21:29)
[2020-03-28 11:33] LABS: C Reactive Protein 53.97 mg/L (<8.01)
[2020-03-28] MEDS ORDERED: NS 0.9% 100 ml BAG 100 ML ONE (13:27)
[2020-03-29] MEDS: Heparin 5000 UNITS/ML 1 mL VIAL SUBCUT SCH ×3 (05:49→20:40)
[2020-03-29 07:18] LABS: Hematocrit 28 % (35-47); Hemoglobin 9.6 g/dL (12.0-16.0); Mean Corpuscular HGB Conc 35 g/dL (31-36); Mean Corpuscular Hemoglobin 30 pg (27-31); Mean Corpuscular Volume 85 fL (80-97); Mean Platelet Volume 6.9 fL (7.4-10.4); Platelet Count 295 10^3/uL (150-450); Red Blood Count 3.23 10^6 /uL (3.70-4.87); Red Cell Distribution Width 14 % (10-15); White Blood Count 8.9 10^3/uL (3.5-10.8)
[2020-03-29 07:38] LABS: BUN/Creatinine Ratio 30.6 (8-20); C Reactive Protein 31.4 mg/L (<8.01); Calcium 7.9 mg/dL (8.6-10.3); EGFR African American 150.6 (>60); EGFR Non-African American 124.5 (>60); Magnesium 1.8 mg/dL (1.9-2.7); Potassium 3.6 mmol/L (3.5-5.0)
[2020-03-29] MEDS ORDERED: Magnesium Sulfate 2 gm BAG 2 GM/50 ML BAG IVPB ONE (07:59)
[2020-03-29] MEDS: Cefepime 1 GM in Dextrose 1 GM/50 ML BAG IV SCH ×2 (08:09→20:37)
[2020-03-29 08:28] LABS: ABS Eosinophils 0.1 10^3/ul (0-0.6); ABS Lymphocytes 2.3 10^3/ul (1.0-4.8); ABS Monocytes 0.8 10^3/ul (0-0.8); ABS Neutrophils 5.7 10^3/ul (1.5-7.7); Eosinophil % 1.1 %; Lymphocyte % 25.3 %
[2020-03-29] MEDS: metroNIDAZOLE IV 500 MG/100ML 500 MG/100 ML BAG IVPB SCH ×2 (10:19→21:27)
[2020-03-29] MEDS: Insulin GLARGINE 100 un/ml 10 ml VIAL SUBCUT SCH (11:32)
[2020-03-29] MEDS ORDERED: Insulin GLARGINE 100 un/ml 10 ml VIAL SUBCUT ONE (11:46)
[2020-03-30] MEDS: Heparin 5000 UNITS/ML 1 mL VIAL SUBCUT SCH ×3 (05:36→22:56)
[2020-03-30 06:49] LABS: Hematocrit 29 % (35-47); Hemoglobin 10.1 g/dL (12.0-16.0); Mean Corpuscular HGB Conc 34 g/dL (31-36); Mean Corpuscular Hemoglobin 29 pg (27-31); Mean Corpuscular Volume 85 fL (80-97); Mean Platelet Volume 7.5 fL (7.4-10.4); Platelet Count 317 10^3/uL (150-450); Red Blood Count 3.44 10^6 /uL (3.70-4.87); Red Cell Distribution Width 14 % (10-15); White Blood Count 9.6 10^3/uL (3.5-10.8)
[2020-03-30 07:06] LABS: Calcium 8.2 mg/dL (8.6-10.3); Potassium 3.7 mmol/L (3.5-5.0)
[2020-03-30 07:12] LABS: BUN/Creatinine Ratio 27.3 (8-20); C Reactive Protein 25.05 mg/L (<8.01); EGFR African American 170.6 (>60)
[2020-03-30 09:28] LABS: ABS Eosinophils 0.1 10^3/ul (0-0.6); ABS Lymphocytes 2.3 10^3/ul (1.0-4.8); ABS Monocytes 0.8 10^3/ul (0-0.8); ABS Neutrophils 6.4 10^3/ul (1.5-7.7); Eosinophil % 1.4 %; Lymphocyte % 23.5 %
[2020-03-30] MEDS ORDERED: Insulin GLARGINE 100 un/ml 10 ml VIAL SUBCUT SCH (10:00)
[2020-03-30] MEDS ORDERED: fentaNYL 100 mcg/2 ml 50 MCG/ML VIAL ONE (10:16)
[2020-03-30] MEDS ORDERED: Lidocaine 2% PF 5 ML VIAL ONE (10:16)
[2020-03-30] MEDS ORDERED: Propofol 10 MG/ML 20 ML BTL ONE (10:16)
[2020-03-30] MEDS: Cefepime 1 GM in Dextrose 1 GM/50 ML BAG IV SCH ×2 (10:44→22:53)
[2020-03-30] MEDS ORDERED: Naloxone 0.4 mg VIAL 0.4 mg/ml 1 ml VIAL IV PRN (10:55)
[2020-03-30] MEDS: metroNIDAZOLE IV 500 MG/100ML 500 MG/100 ML BAG IVPB SCH ×2 (11:15→23:45)
[2020-03-31 06:46] LABS: ABS Eosinophils 0.2 10^3/ul (0-0.6); ABS Lymphocytes 2.5 10^3/ul (1.0-4.8); ABS Monocytes 0.7 10^3/ul (0-0.8); ABS Neutrophils 7.5 10^3/ul (1.5-7.7); Eosinophil % 1.6 %; Hematocrit 30 % (35-47); Lymphocyte % 23.1 %; Mean Corpuscular HGB Conc 34 g/dL (31-36); Mean Corpuscular Hemoglobin 29 pg (27-31); Mean Corpuscular Volume 86 fL (80-97); Mean Platelet Volume 7.1 fL (7.4-10.4); Platelet Count 354 10^3/uL (150-450); Red Blood Count 3.43 10^6 /uL (3.70-4.87); Red Cell Distribution Width 14 % (10-15); White Blood Count 10.9 10^3/uL (3.5-10.8)
[2020-03-31 07:22] LABS: BUN/Creatinine Ratio 28.6 (8-20); Calcium 8.3 mg/dL (8.6-10.3); EGFR African American 150.6 (>60); EGFR Non-African American 124.5 (>60); Potassium 3.9 mmol/L (3.5-5.0)
[2020-03-31] MEDS: Heparin 5000 UNITS/ML 1 mL VIAL SUBCUT SCH ×3 (08:36→21:24)
[2020-03-31] MEDS ORDERED: Insulin GLARGINE 100 un/ml 10 ml VIAL SUBCUT SCH (10:00)
[2020-03-31] MEDS: Cefepime 1 GM in Dextrose 1 GM/50 ML BAG IV SCH ×2 (10:12→22:51)
[2020-03-31] MEDS: metroNIDAZOLE IV 500 MG/100ML 500 MG/100 ML BAG IVPB SCH ×2 (11:00→21:21)
[2020-04-01] MEDS: Heparin 5000 UNITS/ML 1 mL VIAL SUBCUT SCH ×3 (06:08→21:13)
[2020-04-01 07:20] LABS: ABS Eosinophils 0.2 10^3/ul (0-0.6); ABS Lymphocytes 2.4 10^3/ul (1.0-4.8); ABS Monocytes 0.8 10^3/ul (0-0.8); ABS Neutrophils 5.5 10^3/ul (1.5-7.7); Eosinophil % 1.8 %; Hematocrit 29 % (35-47); Hemoglobin 9.9 g/dL (12.0-16.0); Mean Corpuscular HGB Conc 34 g/dL (31-36); Mean Corpuscular Hemoglobin 29 pg (27-31); Mean Corpuscular Volume 86 fL (80-97); Mean Platelet Volume 7.2 fL (7.4-10.4); Nucleated Red Blood Cells % 0.1; Platelet Count 367 10^3/uL (150-450); Red Blood Count 3.38 10^6 /uL (3.70-4.87); Red Cell Distribution Width 14 % (10-15); White Blood Count 8.8 10^3/uL (3.5-10.8)
[2020-04-01 07:43] LABS: BUN/Creatinine Ratio 25.9 (8-20); Calcium 8.6 mg/dL (8.6-10.3); EGFR African American 134.7 (>60); EGFR Non-African American 111.3 (>60); Potassium 4.3 mmol/L (3.5-5.0)
[2020-04-01] MEDS: Insulin GLARGINE 100 un/ml 10 ml VIAL SUBCUT SCH (08:44)
[2020-04-01] MEDS: Cefepime 1 GM in Dextrose 1 GM/50 ML BAG IV SCH ×2 (08:45→21:23)
[2020-04-01] MEDS: metroNIDAZOLE IV 500 MG/100ML 500 MG/100 ML BAG IVPB SCH ×2 (10:09→23:12)
[2020-04-02] MEDS: Heparin 5000 UNITS/ML 1 mL VIAL SUBCUT SCH ×3 (06:14→21:39)
[2020-04-02] MEDS: Insulin GLARGINE 100 un/ml 10 ml VIAL SUBCUT SCH (09:10)
[2020-04-02] MEDS: Cefepime 1 GM in Dextrose 1 GM/50 ML BAG IV SCH (09:19)
[2020-04-02] MEDS: metroNIDAZOLE IV 500 MG/100ML 500 MG/100 ML BAG IVPB SCH ×2 (10:00→21:43)
[2020-04-02] MEDS: ceFAZolin 2 GM PREMIX 2 GM/50 ML BAG IVPB SCH (15:08)
[2020-04-03] MEDS: ceFAZolin 2 GM PREMIX 2 GM/50 ML BAG IVPB SCH ×2 (00:52→06:07)
[2020-04-03] MEDS: Heparin 5000 UNITS/ML 1 mL VIAL SUBCUT SCH (06:07)
[2020-04-03 07:18] VITALS: BP 164/59
[2020-04-03] MEDS: Insulin GLARGINE 100 un/ml 10 ml VIAL SUBCUT SCH (09:40)
== END 2020-04-03 09:06 | disposition swing bed (61) | DRG 853 ==
LOC: ED 11:46 → ICU 18:34 → MED 03-24 20:00
PROVIDERS: ADMIT Internal Medicine; ATTEND Internal Medicine

== ENCOUNTER 2020-04-03 10:01 | Inpatient (IN) ==
[2020-04-03] MEDS ORDERED: Dextrose 50% Syringe 50 ml 25 GM/50 ML SYRINGE IV PUSH PRN (10:33)
[2020-04-03] MEDS ORDERED: Ondansetron 4 mg VIAL 2 MG/ML 2 ml VIAL IV PRN (10:50)
[2020-04-03] MEDS: metroNIDAZOLE IV 500 MG/100ML 500 MG/100 ML BAG IVPB SCH ×2 (11:25→23:35)
[2020-04-03] MEDS: Enoxaparin 40 MG/0.4 ML SYR SUBCUT SCH (13:54)
[2020-04-03] MEDS: ceFAZolin 2 GM PREMIX 2 GM/50 ML BAG IVPB SCH ×2 (13:54→22:05)
[2020-04-04] MEDS: ceFAZolin 2 GM PREMIX 2 GM/50 ML BAG IVPB SCH ×3 (05:24→21:30)
[2020-04-04] MEDS: Insulin GLARGINE 100 un/ml 10 ml VIAL SUBCUT SCH (09:28)
[2020-04-04] MEDS: metroNIDAZOLE IV 500 MG/100ML 500 MG/100 ML BAG IVPB SCH ×2 (11:53→22:54)
[2020-04-04] MEDS: Collagenase 250 units/gm OINT 1 tube TOPICAL SCH ×2 (13:27→21:42)
[2020-04-04] MEDS: Enoxaparin 40 MG/0.4 ML SYR SUBCUT SCH (13:29)
[2020-04-05] MEDS: ceFAZolin 2 GM PREMIX 2 GM/50 ML BAG IVPB SCH ×3 (05:31→22:16)
[2020-04-05] MEDS: Insulin GLARGINE 100 un/ml 10 ml VIAL SUBCUT SCH (09:38)
[2020-04-05] MEDS: Collagenase 250 units/gm OINT 1 tube TOPICAL SCH ×2 (09:40→20:38)
[2020-04-05] MEDS: metroNIDAZOLE IV 500 MG/100ML 500 MG/100 ML BAG IVPB SCH ×2 (11:45→23:08)
[2020-04-05] MEDS: Enoxaparin 40 MG/0.4 ML SYR SUBCUT SCH (13:35)
[2020-04-06] MEDS: ceFAZolin 2 GM PREMIX 2 GM/50 ML BAG IVPB SCH ×2 (05:38→13:45)
[2020-04-06] MEDS: Collagenase 250 units/gm OINT 1 tube TOPICAL SCH ×2 (08:45→21:53)
[2020-04-06] MEDS: Insulin GLARGINE 100 un/ml 10 ml VIAL SUBCUT SCH (10:24)
[2020-04-06] MEDS: metroNIDAZOLE IV 500 MG/100ML 500 MG/100 ML BAG IVPB SCH (12:06)
[2020-04-06] MEDS: Enoxaparin 40 MG/0.4 ML SYR SUBCUT SCH (13:46)
[2020-04-06] MEDS: ceFAZolin 2 GM in NS 100 MLS Q8H (Pharmacy Admix) IVPB SCH (22:07)
[2020-04-07] MEDS: metroNIDAZOLE IV 500 MG/100ML 500 MG/100 ML BAG IVPB SCH (00:03)
[2020-04-07] MEDS: Collagenase 250 units/gm OINT 1 tube TOPICAL SCH ×3 (01:34→22:39)
[2020-04-07] MEDS: ceFAZolin 2 GM in NS 100 MLS Q8H (Pharmacy Admix) IVPB SCH ×3 (05:47→22:35)
[2020-04-07] MEDS: Insulin GLARGINE 100 un/ml 10 ml VIAL SUBCUT SCH (09:39)
[2020-04-07] MEDS: Enoxaparin 40 MG/0.4 ML SYR SUBCUT SCH (13:56)
[2020-04-08] MEDS: ceFAZolin 2 GM in NS 100 MLS Q8H (Pharmacy Admix) IVPB SCH ×3 (04:52→23:01)
[2020-04-08] MEDS: Collagenase 250 units/gm OINT 1 tube TOPICAL SCH ×2 (08:25→23:19)
[2020-04-08 08:46] LABS: ABS Basophils 0.1 10^3/ul (0-0.2); ABS Eosinophils 0.1 10^3/ul (0-0.6); ABS Monocytes 0.6 10^3/ul (0-0.8); ABS Neutrophils 5.5 10^3/ul (1.5-7.7); Eosinophil % 1.3 %; Hematocrit 30 % (35-47); Hemoglobin 10.3 g/dL (12.0-16.0); Lymphocyte % 24.4 %; Mean Corpuscular HGB Conc 34 g/dL (31-36); Mean Corpuscular Hemoglobin 29 pg (27-31); Mean Corpuscular Volume 86 fL (80-97); Mean Platelet Volume 6.3 fL (7.4-10.4); Platelet Count 417 10^3/uL (150-450); Red Blood Count 3.48 10^6 /uL (3.70-4.87); Red Cell Distribution Width 15 % (10-15); White Blood Count 8.4 10^3/uL (3.5-10.8)
[2020-04-08 09:05] LABS: Albumin 2.9 g/dL (3.2-5.2); Albumin/Globulin Ratio 0.9 (1-3); BUN/Creatinine Ratio 40.4 (8-20); C Reactive Protein 4.06 mg/L (<8.01); Calcium 9.2 mg/dL (8.6-10.3); EGFR African American 158.1 (>60); EGFR Non-African American 130.6 (>60); Globulin 3.1 g/dL (2-4); Potassium 4.3 mmol/L (3.5-5.0); Total Bilirubin 0.2 mg/dL (0.2-1.0)
[2020-04-08] MEDS: Insulin GLARGINE 100 un/ml 10 ml VIAL SUBCUT SCH (10:24)
[2020-04-08] MEDS: Enoxaparin 40 MG/0.4 ML SYR SUBCUT SCH (14:16)
[2020-04-09] MEDS: ceFAZolin 2 GM in NS 100 MLS Q8H (Pharmacy Admix) IVPB SCH ×3 (06:23→22:15)
[2020-04-09] MEDS: Insulin GLARGINE 100 un/ml 10 ml VIAL SUBCUT SCH (10:52)
[2020-04-09] MEDS: Enoxaparin 40 MG/0.4 ML SYR SUBCUT SCH (14:14)
[2020-04-09] MEDS: Collagenase 250 units/gm OINT 1 tube TOPICAL SCH ×2 (15:50→22:30)
[2020-04-09 16:33] LABS: Urine Appearance Cloudy; Urine Bilirubin Negative (Negative); Urine Blood 1+ (Negative); Urine Color Yellow; Urine Glucose 1+(50 mg/dL) (Negative); Urine Ketones Negative (Negative); Urine Nitrite Negative (Negative); Urine Protein 2+(100 mg/dL) (Negative); Urine Specific Gravity 1.008 (1.010-1.030); Urine Urobilinogen Negative (Negative)
[2020-04-09 16:35] LABS: Urine Bacteria Absent (Absent); Urine Red Blood Cell 2+(6-10/hpf) (Absent); Urine Squamous Epithelial Cell Present (Absent); Urine White Blood Cell 3+(>20/hpf) (Absent)
[2020-04-09 19:46] LABS: ABS Eosinophils 0.1 10^3/ul (0-0.6); ABS Monocytes 0.6 10^3/ul (0-0.8); ABS Neutrophils 4.2 10^3/ul (1.5-7.7); Eosinophil % 1.4 %; Hematocrit 26 % (35-47); Lymphocyte % 28.7 %; Mean Corpuscular HGB Conc 35 g/dL (31-36); Mean Corpuscular Hemoglobin 30 pg (27-31); Mean Corpuscular Volume 87 fL (80-97); Mean Platelet Volume 6.5 fL (7.4-10.4); Platelet Count 315 10^3/uL (150-450); Red Blood Count 2.96 10^6 /uL (3.70-4.87); Red Cell Distribution Width 15 % (10-15)
[2020-04-09 20:49] LABS: Calcium 8.4 mg/dL (8.6-10.3); EGFR African American 66.1 (>60); EGFR Non-African American 54.7 (>60); Potassium 4.5 mmol/L (3.5-5.0)
[2020-04-10] MEDS: ceFAZolin 2 GM in NS 100 MLS Q8H (Pharmacy Admix) IVPB SCH ×2 (05:29→14:30)
[2020-04-10] MEDS: Insulin GLARGINE 100 un/ml 10 ml VIAL SUBCUT SCH (10:08)
[2020-04-10] MEDS: Enoxaparin 40 MG/0.4 ML SYR SUBCUT SCH (14:07)
[2020-04-10] MEDS: Collagenase 250 units/gm OINT 1 tube TOPICAL SCH ×2 (14:08→22:25)
[2020-04-10] MEDS: ceFAZolin 2 GM PREMIX 2 GM/50 ML BAG IVPB SCH (22:24)
[2020-04-11 05:34] LABS: ABS Eosinophils 0.1 10^3/ul (0-0.6); ABS Lymphocytes 2.4 10^3/ul (1.0-4.8); ABS Monocytes 0.6 10^3/ul (0-0.8); ABS Neutrophils 2.7 10^3/ul (1.5-7.7); Eosinophil % 1.5 %; Hematocrit 29 % (35-47); Hemoglobin 9.3 g/dL (12.0-16.0); Lymphocyte % 41.5 %; Mean Corpuscular HGB Conc 33 g/dL (31-36); Mean Corpuscular Hemoglobin 28 pg (27-31); Mean Corpuscular Volume 87 fL (80-97); Mean Platelet Volume 6.8 fL (7.4-10.4); Platelet Count 318 10^3/uL (150-450); Red Blood Count 3.28 10^6 /uL (3.70-4.87); Red Cell Distribution Width 15 % (10-15); White Blood Count 5.8 10^3/uL (3.5-10.8)
[2020-04-11 05:51] LABS: Calcium 8.9 mg/dL (8.6-10.3); EGFR African American 140.7 (>60); EGFR Non-African American 116.2 (>60)
[2020-04-11] MEDS: ceFAZolin 2 GM PREMIX 2 GM/50 ML BAG IVPB SCH ×3 (06:35→22:28)
[2020-04-11] MEDS ORDERED: Insulin GLARGINE 100 un/ml 10 ml VIAL SUBCUT SCH (09:00)
[2020-04-11] MEDS: Collagenase 250 units/gm OINT 1 tube TOPICAL SCH ×2 (10:22→19:58)
[2020-04-11] MEDS: Enoxaparin 40 MG/0.4 ML SYR SUBCUT SCH (14:24)
[2020-04-11 17:44] LABS: Calcium 9.1 mg/dL (8.6-10.3); EGFR African American 147.2 (>60); EGFR Non-African American 121.6 (>60); Potassium 4.1 mmol/L (3.5-5.0)
[2020-04-12] MEDS ORDERED: ceFAZolin 2 GM PREMIX 2 GM/50 ML BAG IVPB SCH
[2020-04-12] MEDS: ceFAZolin 2 GM PREMIX 2 GM/50 ML BAG IVPB SCH ×3 (05:50→23:12)
[2020-04-12 06:18] LABS: BUN/Creatinine Ratio 47.5 (8-20); Calcium 9.2 mg/dL (8.6-10.3); EGFR Non-African American 96.7 (>60); Potassium 4.4 mmol/L (3.5-5.0)
[2020-04-12] MEDS: Collagenase 250 units/gm OINT 1 tube TOPICAL SCH ×2 (08:33→21:07)
[2020-04-12] MEDS: Insulin GLARGINE 100 un/ml 10 ml VIAL SUBCUT SCH (08:36)
[2020-04-12] MEDS ORDERED: hydrALAZINE 20 mg/ml 1 ML Vial IV IV SLOW PU PRN (15:04)
[2020-04-12] MEDS ORDERED: Naloxone 0.4 mg VIAL 0.4 mg/ml 1 ml VIAL IV PRN (18:31)
[2020-04-12] MEDS ORDERED: fentaNYL 100 mcg/2 ml 50 MCG/ML VIAL IV PRN (18:31)
[2020-04-12] MEDS ORDERED: Ondansetron 4 mg VIAL 2 MG/ML 2 ml VIAL IV PRN (18:31)
[2020-04-12] MEDS ORDERED: hydrALAZINE 20 mg/ml 1 ML Vial IV IV SLOW PU ONE (19:19)
[2020-04-12] MEDS: Enoxaparin 40 MG/0.4 ML SYR SUBCUT SCH (20:32)
[2020-04-13] MEDS: ceFAZolin 2 GM PREMIX 2 GM/50 ML BAG IVPB SCH ×3 (06:44→21:55)
[2020-04-13 09:24] LABS: ABS Lymphocytes 1.7 10^3/ul (1.0-4.8); ABS Monocytes 0.7 10^3/ul (0-0.8); ABS Neutrophils 5.1 10^3/ul (1.5-7.7); Hematocrit 31 % (35-47); Hemoglobin 10.2 g/dL (12.0-16.0); Lymphocyte % 22.2 %; Mean Corpuscular HGB Conc 33 g/dL (31-36); Mean Corpuscular Hemoglobin 29 pg (27-31); Mean Corpuscular Volume 86 fL (80-97); Mean Platelet Volume 6.8 fL (7.4-10.4); Platelet Count 352 10^3/uL (150-450); Red Blood Count 3.56 10^6 /uL (3.70-4.87); Red Cell Distribution Width 16 % (10-15); White Blood Count 7.5 10^3/uL (3.5-10.8)
[2020-04-13 09:39] LABS: BUN/Creatinine Ratio 44.6 (8-20); Calcium 9.1 mg/dL (8.6-10.3); EGFR African American 108.7 (>60); EGFR Non-African American 89.9 (>60); Potassium 3.9 mmol/L (3.5-5.0)
[2020-04-13] MEDS: Insulin GLARGINE 100 un/ml 10 ml VIAL SUBCUT SCH (10:18)
[2020-04-13] MEDS: Collagenase 250 units/gm OINT 1 tube TOPICAL SCH ×2 (11:34→22:11)
[2020-04-13] MEDS: Enoxaparin 40 MG/0.4 ML SYR SUBCUT SCH (14:34)
[2020-04-14] MEDS: ceFAZolin 2 GM PREMIX 2 GM/50 ML BAG IVPB SCH ×3 (05:41→22:40)
[2020-04-14] MEDS: Insulin GLARGINE 100 un/ml 10 ml VIAL SUBCUT SCH (09:59)
[2020-04-14] MEDS: Collagenase 250 units/gm OINT 1 tube TOPICAL SCH ×2 (11:52→20:45)
[2020-04-14] MEDS: Enoxaparin 40 MG/0.4 ML SYR SUBCUT SCH (14:31)
[2020-04-15] MEDS: ceFAZolin 2 GM PREMIX 2 GM/50 ML BAG IVPB SCH ×3 (05:31→22:02)
[2020-04-15 06:09] LABS: ABS Eosinophils 0.1 10^3/ul (0-0.6); ABS Monocytes 0.6 10^3/ul (0-0.8); ABS Neutrophils 2.3 10^3/ul (1.5-7.7); Hematocrit 27 % (35-47); Hemoglobin 8.8 g/dL (12.0-16.0); Lymphocyte % 40.1 %; Mean Corpuscular HGB Conc 33 g/dL (31-36); Mean Corpuscular Hemoglobin 29 pg (27-31); Mean Corpuscular Volume 86 fL (80-97); Mean Platelet Volume 6.8 fL (7.4-10.4); Platelet Count 282 10^3/uL (150-450); Red Blood Count 3.08 10^6 /uL (3.70-4.87); Red Cell Distribution Width 15 % (10-15); White Blood Count 5.1 10^3/uL (3.5-10.8)
[2020-04-15 06:37] LABS: Albumin 2.7 g/dL (3.2-5.2); Albumin/Globulin Ratio 0.9 (1-3); BUN/Creatinine Ratio 42.9 (8-20); C Reactive Protein 1.87 mg/L (<8.01); Calcium 8.8 mg/dL (8.6-10.3); EGFR African American 150.6 (>60); EGFR Non-African American 124.5 (>60); Globulin 2.9 g/dL (2-4); Potassium 3.9 mmol/L (3.5-5.0); Total Bilirubin 0.2 mg/dL (0.2-1.0); Total Protein 5.6 g/dL (6.4-8.9)
[2020-04-15] MEDS: Collagenase 250 units/gm OINT 1 tube TOPICAL SCH ×2 (10:41→20:57)
[2020-04-15] MEDS: Insulin GLARGINE 100 un/ml 10 ml VIAL SUBCUT SCH (10:43)
[2020-04-15] MEDS: Enoxaparin 40 MG/0.4 ML SYR SUBCUT SCH (15:20)
[2020-04-16] MEDS: ceFAZolin 2 GM PREMIX 2 GM/50 ML BAG IVPB SCH ×3 (05:55→21:40)
[2020-04-16] MEDS: Collagenase 250 units/gm OINT 1 tube TOPICAL SCH ×2 (08:32→20:11)
[2020-04-16] MEDS: Insulin GLARGINE 100 un/ml 10 ml VIAL SUBCUT SCH (08:57)
[2020-04-16] MEDS: Enoxaparin 40 MG/0.4 ML SYR SUBCUT SCH (14:35)
[2020-04-17] MEDS: ceFAZolin 2 GM PREMIX 2 GM/50 ML BAG IVPB SCH ×3 (06:07→22:20)
[2020-04-17] MEDS: Insulin GLARGINE 100 un/ml 10 ml VIAL SUBCUT SCH (09:39)
[2020-04-17] MEDS: Collagenase 250 units/gm OINT 1 tube TOPICAL SCH ×2 (10:15→20:37)
[2020-04-17] MEDS: Enoxaparin 40 MG/0.4 ML SYR SUBCUT SCH (16:12)
[2020-04-18] MEDS: ceFAZolin 2 GM PREMIX 2 GM/50 ML BAG IVPB SCH ×3 (05:56→22:45)
[2020-04-18] MEDS: Collagenase 250 units/gm OINT 1 tube TOPICAL SCH ×2 (09:05→20:20)
[2020-04-18] MEDS: Insulin GLARGINE 100 un/ml 10 ml VIAL SUBCUT SCH (09:38)
[2020-04-18] MEDS: Enoxaparin 40 MG/0.4 ML SYR SUBCUT SCH (14:38)
[2020-04-19] MEDS: ceFAZolin 2 GM PREMIX 2 GM/50 ML BAG IVPB SCH ×3 (06:13→21:01)
[2020-04-19] MEDS: Insulin GLARGINE 100 un/ml 10 ml VIAL SUBCUT SCH (08:38)
[2020-04-19] MEDS: Collagenase 250 units/gm OINT 1 tube TOPICAL SCH ×2 (08:43→19:52)
[2020-04-19 09:09] LABS: ABS Eosinophils 0.2 10^3/ul (0-0.6); ABS Lymphocytes 1.3 10^3/ul (1.0-4.8); ABS Monocytes 0.6 10^3/ul (0-0.8); ABS Neutrophils 7.1 10^3/ul (1.5-7.7); Hematocrit 27 % (35-47); Hemoglobin 9.2 g/dL (12.0-16.0); Lymphocyte % 14.2 %; Mean Corpuscular HGB Conc 34 g/dL (31-36); Mean Corpuscular Hemoglobin 29 pg (27-31); Mean Corpuscular Volume 86 fL (80-97); Mean Platelet Volume 6.9 fL (7.4-10.4); Platelet Count 292 10^3/uL (150-450); Red Blood Count 3.15 10^6 /uL (3.70-4.87); Red Cell Distribution Width 16 % (10-15); White Blood Count 9.3 10^3/uL (3.5-10.8)
[2020-04-19] MEDS: Enoxaparin 40 MG/0.4 ML SYR SUBCUT SCH (14:08)
[2020-04-20] MEDS: ceFAZolin 2 GM PREMIX 2 GM/50 ML BAG IVPB SCH ×3 (06:22→22:03)
[2020-04-20] MEDS: Collagenase 250 units/gm OINT 1 tube TOPICAL SCH ×2 (10:08→19:56)
[2020-04-20] MEDS: Insulin GLARGINE 100 un/ml 10 ml VIAL SUBCUT SCH (10:09)
[2020-04-20] MEDS: Enoxaparin 40 MG/0.4 ML SYR SUBCUT SCH (13:53)
[2020-04-21] MEDS: ceFAZolin 2 GM PREMIX 2 GM/50 ML BAG IVPB SCH ×3 (04:49→21:43)
[2020-04-21] MEDS: Insulin GLARGINE 100 un/ml 10 ml VIAL SUBCUT SCH (09:43)
[2020-04-21] MEDS: Collagenase 250 units/gm OINT 1 tube TOPICAL SCH ×2 (09:51→21:58)
[2020-04-21] MEDS: Enoxaparin 40 MG/0.4 ML SYR SUBCUT SCH (12:57)
[2020-04-21] MEDS ORDERED: Alteplase (CATHFLO) 2 MG VIAL IV ONE (15:21)
[2020-04-21 15:23] LABS: Urine Appearance Turbid; Urine Bilirubin Negative (Negative); Urine Blood Negative (Negative); Urine Color Amber; Urine Glucose 1+(50 mg/dL) (Negative); Urine Ketones Negative (Negative); Urine Nitrite Negative (Negative); Urine Protein 3+(>=500 mg/dL) (Negative); Urine Specific Gravity 1.018 (1.010-1.030); Urine Urobilinogen Negative (Negative)
[2020-04-21 15:31] LABS: Urine Bacteria Absent (Absent); Urine Red Blood Cell 3+(>10/hpf) (Absent); Urine Squamous Epithelial Cell Present (Absent); Urine White Blood Cell 3+(>20/hpf) (Absent)
[2020-04-21 16:01] LABS: BUN/Creatinine Ratio 36.1 (8-20); Calcium 8.7 mg/dL (8.6-10.3); EGFR Non-African American 67.8 (>60); Potassium 4.5 mmol/L (3.5-5.0)
[2020-04-21] MEDS ORDERED: NS 0.9% 500 ml BAG 500 ML IV ONE (16:34)
[2020-04-21 18:05] LABS: ABS Eosinophils 0.2 10^3/ul (0-0.6); ABS Lymphocytes 2.1 10^3/ul (1.0-4.8); ABS Monocytes 0.8 10^3/ul (0-0.8); ABS Neutrophils 5.7 10^3/ul (1.5-7.7); Eosinophil % 1.7 %; Hematocrit 27 % (35-47); Hemoglobin 8.9 g/dL (12.0-16.0); Lymphocyte % 23.6 %; Mean Corpuscular HGB Conc 33 g/dL (31-36); Mean Corpuscular Hemoglobin 29 pg (27-31); Mean Corpuscular Volume 87 fL (80-97); Mean Platelet Volume 6.8 fL (7.4-10.4); Platelet Count 312 10^3/uL (150-450); Red Cell Distribution Width 15 % (10-15); White Blood Count 8.8 10^3/uL (3.5-10.8)
[2020-04-21] MEDS: Meropenem 1 GM PREMIX(*) 1 GM/50 ML BAG IV SCH (18:10)
[2020-04-22] MEDS: Meropenem 1 GM PREMIX(*) 1 GM/50 ML BAG IV SCH ×2 (02:12→09:43)
[2020-04-22] MEDS: ceFAZolin 2 GM PREMIX 2 GM/50 ML BAG IVPB SCH ×2 (06:05→14:58)
[2020-04-22 07:16] LABS: Albumin/Globulin Ratio 1.2 (1-3); BUN/Creatinine Ratio 44.4 (8-20); C Reactive Protein 9.25 mg/L (<8.01); Calcium 8.8 mg/dL (8.6-10.3); EGFR African American 134.7 (>60); EGFR Non-African American 111.3 (>60); Globulin 2.5 g/dL (2-4); Potassium 3.9 mmol/L (3.5-5.0); Total Bilirubin 0.2 mg/dL (0.2-1.0); Total Protein 5.5 g/dL (6.4-8.9)
[2020-04-22 07:21] LABS: ABS Eosinophils 0.2 10^3/ul (0-0.6); ABS Lymphocytes 2.1 10^3/ul (1.0-4.8); ABS Monocytes 0.8 10^3/ul (0-0.8); ABS Neutrophils 3.3 10^3/ul (1.5-7.7); Hematocrit 26 % (35-47); Hemoglobin 8.5 g/dL (12.0-16.0); Lymphocyte % 32.7 %; Mean Corpuscular HGB Conc 33 g/dL (31-36); Mean Corpuscular Hemoglobin 29 pg (27-31); Mean Corpuscular Volume 87 fL (80-97); Mean Platelet Volume 7.3 fL (7.4-10.4); Platelet Count 293 10^3/uL (150-450); Red Blood Count 2.96 10^6 /uL (3.70-4.87); Red Cell Distribution Width 15 % (10-15); White Blood Count 6.5 10^3/uL (3.5-10.8)
[2020-04-22] MEDS: Insulin GLARGINE 100 un/ml 10 ml VIAL SUBCUT SCH (09:42)
[2020-04-22] MEDS: Collagenase 250 units/gm OINT 1 tube TOPICAL SCH (11:05)
[2020-04-22] MEDS: Enoxaparin 40 MG/0.4 ML SYR SUBCUT SCH (14:57)
[2020-04-22] MEDS: Cefepime 2 GM in Dextrose 2 GM/50 ML BAG IV SCH (16:14)
[2020-04-23] MEDS: Cefepime 2 GM in Dextrose 2 GM/50 ML BAG IV SCH (02:55)
[2020-04-23] MEDS: Insulin GLARGINE 100 un/ml 10 ml VIAL SUBCUT SCH (09:10)
[2020-04-23] MEDS: Enoxaparin 40 MG/0.4 ML SYR SUBCUT SCH (13:05)
[2020-04-23] MEDS: ceFAZolin 2 GM PREMIX 2 GM/50 ML BAG IVPB SCH ×2 (15:01→22:20)
[2020-04-23 17:14] LABS: ABS Eosinophils 0.2 10^3/ul (0-0.6); ABS Lymphocytes 1.8 10^3/ul (1.0-4.8); ABS Monocytes 0.6 10^3/ul (0-0.8); Eosinophil % 3.6 %; Hematocrit 28 % (35-47); Hemoglobin 9.2 g/dL (12.0-16.0); Mean Corpuscular HGB Conc 33 g/dL (31-36); Mean Corpuscular Hemoglobin 29 pg (27-31); Mean Corpuscular Volume 87 fL (80-97); Mean Platelet Volume 7.3 fL (7.4-10.4); Nucleated Red Blood Cells % 0.1; Platelet Count 342 10^3/uL (150-450); Red Blood Count 3.21 10^6 /uL (3.70-4.87); Red Cell Distribution Width 16 % (10-15); White Blood Count 6.8 10^3/uL (3.5-10.8)
[2020-04-23 20:21] LABS: % Iron Saturation 10 % (15-55); Iron 30 ug/dL (50-212); Total Iron Binding Capacity 311 mcg/dL (250-450); Transferrin 222 mg/dL (203-362); Unsaturated Iron Binding < 296 ug/dL
[2020-04-23 22:32] LABS: Albumin 3.1 g/dL (3.2-5.2); Calcium 8.8 mg/dL (8.6-10.3); Potassium 4.7 mmol/L (3.5-5.0); Total Bilirubin 0.1 mg/dL (0.2-1.0)
[2020-04-23 22:38] LABS: Albumin/Globulin Ratio 1.3 (1-3); BUN/Creatinine Ratio 31.1 (8-20); EGFR African American 93.6 (>60); EGFR Non-African American 77.4 (>60); Globulin 2.3 g/dL (2-4); Total Protein 5.4 g/dL (6.4-8.9)
[2020-04-23 23:01] LABS: Vitamin B12 366 pg/mL (180-914)
[2020-04-24] MEDS: ceFAZolin 2 GM PREMIX 2 GM/50 ML BAG IVPB SCH ×3 (05:33→21:34)
[2020-04-24] MEDS: Insulin GLARGINE 100 un/ml 10 ml VIAL SUBCUT SCH (09:19)
[2020-04-24] MEDS: Nystatin TOP POWDER 15 GM BTL TOPICAL SCH ×2 (11:38→20:10)
[2020-04-24] MEDS: Enoxaparin 40 MG/0.4 ML SYR SUBCUT SCH (15:10)
[2020-04-25] MEDS: ceFAZolin 2 GM PREMIX 2 GM/50 ML BAG IVPB SCH ×3 (06:08→22:35)
[2020-04-25] MEDS: Nystatin TOP POWDER 15 GM BTL TOPICAL SCH ×2 (07:10→22:38)
[2020-04-25] MEDS: Insulin GLARGINE 100 un/ml 10 ml VIAL SUBCUT SCH (08:14)
[2020-04-25] MEDS: Enoxaparin 40 MG/0.4 ML SYR SUBCUT SCH (14:52)
[2020-04-26] MEDS: ceFAZolin 2 GM PREMIX 2 GM/50 ML BAG IVPB SCH ×3 (06:05→21:44)
[2020-04-26] MEDS: Insulin GLARGINE 100 un/ml 10 ml VIAL SUBCUT SCH (07:49)
[2020-04-26] MEDS: Nystatin TOP POWDER 15 GM BTL TOPICAL SCH ×2 (07:52→21:39)
[2020-04-26] MEDS: Enoxaparin 40 MG/0.4 ML SYR SUBCUT SCH (13:09)
[2020-04-27] MEDS: ceFAZolin 2 GM PREMIX 2 GM/50 ML BAG IVPB SCH ×3 (05:41→20:56)
[2020-04-27] MEDS: Insulin GLARGINE 100 un/ml 10 ml VIAL SUBCUT SCH (08:25)
[2020-04-27] MEDS: Nystatin TOP POWDER 15 GM BTL TOPICAL SCH ×2 (08:27→20:59)
[2020-04-27] MEDS: Enoxaparin 40 MG/0.4 ML SYR SUBCUT SCH (13:45)
[2020-04-28] MEDS: ceFAZolin 2 GM PREMIX 2 GM/50 ML BAG IVPB SCH ×3 (04:56→20:39)
[2020-04-28] MEDS: Insulin GLARGINE 100 un/ml 10 ml VIAL SUBCUT SCH (08:38)
[2020-04-28 11:07] LABS: ABS Eosinophils 0.1 10^3/ul (0-0.6); ABS Lymphocytes 1.8 10^3/ul (1.0-4.8); ABS Monocytes 0.7 10^3/ul (0-0.8); ABS Neutrophils 3.1 10^3/ul (1.5-7.7); Eosinophil % 1.7 %; Hematocrit 28 % (35-47); Hemoglobin 9.4 g/dL (12.0-16.0); Lymphocyte % 31.2 %; Mean Corpuscular HGB Conc 34 g/dL (31-36); Mean Corpuscular Hemoglobin 29 pg (27-31); Mean Corpuscular Volume 87 fL (80-97); Platelet Count 331 10^3/uL (150-450); Red Blood Count 3.24 10^6 /uL (3.70-4.87); Red Cell Distribution Width 15 % (10-15); White Blood Count 5.7 10^3/uL (3.5-10.8)
[2020-04-28 11:16] LABS: Albumin 3.3 g/dL (3.2-5.2); Albumin/Globulin Ratio 1.2 (1-3); BUN/Creatinine Ratio 50.6 (8-20); Calcium 9.1 mg/dL (8.6-10.3); EGFR African American 86.8 (>60); EGFR Non-African American 71.7 (>60); Globulin 2.7 g/dL (2-4); Potassium 4.1 mmol/L (3.5-5.0); Total Bilirubin 0.2 mg/dL (0.2-1.0)
[2020-04-28 11:18] LABS: Troponin I 0.01 ng/mL (<0.03)
[2020-04-28] MEDS: Nystatin TOP POWDER 15 GM BTL TOPICAL SCH ×2 (12:54→20:39)
[2020-04-28] MEDS: Enoxaparin 40 MG/0.4 ML SYR SUBCUT SCH (14:10)
[2020-04-28 15:24] LABS: Troponin I 0.03 ng/mL (<0.03)
[2020-04-28 18:53] LABS: Troponin I 0.03 ng/mL (<0.03)
[2020-04-29] MEDS: ceFAZolin 2 GM PREMIX 2 GM/50 ML BAG IVPB SCH ×3 (05:20→21:33)
[2020-04-29 05:46] LABS: ABS Eosinophils 0.1 10^3/ul (0-0.6); ABS Lymphocytes 2.2 10^3/ul (1.0-4.8); ABS Monocytes 0.7 10^3/ul (0-0.8); ABS Neutrophils 2.8 10^3/ul (1.5-7.7); Eosinophil % 1.9 %; Hematocrit 28 % (35-47); Hemoglobin 9.6 g/dL (12.0-16.0); Lymphocyte % 37.1 %; Mean Corpuscular HGB Conc 34 g/dL (31-36); Mean Corpuscular Hemoglobin 29 pg (27-31); Mean Corpuscular Volume 86 fL (80-97); Mean Platelet Volume 6.8 fL (7.4-10.4); Platelet Count 325 10^3/uL (150-450); Red Cell Distribution Width 15 % (10-15); White Blood Count 5.9 10^3/uL (3.5-10.8)
[2020-04-29] MEDS: Insulin GLARGINE 100 un/ml 10 ml VIAL SUBCUT SCH (08:56)
[2020-04-29] MEDS: Nystatin TOP POWDER 15 GM BTL TOPICAL SCH ×2 (12:15→21:36)
[2020-04-29] MEDS: Enoxaparin 40 MG/0.4 ML SYR SUBCUT SCH (12:56)
[2020-04-29] MEDS ORDERED: NS 0.9% 1000 ml BAG 1,000 ML IV SCH (16:45)
[2020-04-30] MEDS: ceFAZolin 2 GM PREMIX 2 GM/50 ML BAG IVPB SCH ×2 (05:44→14:02)
[2020-04-30 05:57] LABS: ABS Basophils 0.1 10^3/ul (0-0.2); ABS Eosinophils 0.1 10^3/ul (0-0.6); ABS Monocytes 0.6 10^3/ul (0-0.8); ABS Neutrophils 2.9 10^3/ul (1.5-7.7); Eosinophil % 1.8 %; Hematocrit 26 % (35-47); Hemoglobin 8.7 g/dL (12.0-16.0); Lymphocyte % 35.6 %; Mean Corpuscular HGB Conc 34 g/dL (31-36); Mean Corpuscular Hemoglobin 29 pg (27-31); Mean Corpuscular Volume 87 fL (80-97); Platelet Count 284 10^3/uL (150-450); Red Cell Distribution Width 16 % (10-15); White Blood Count 5.7 10^3/uL (3.5-10.8)
[2020-04-30 06:50] LABS: Calcium 8.8 mg/dL (8.6-10.3); EGFR African American 121.6 (>60); EGFR Non-African American 100.5 (>60); Potassium 3.9 mmol/L (3.5-5.0)
[2020-04-30] MEDS: Insulin GLARGINE 100 un/ml 10 ml VIAL SUBCUT SCH (09:43)
[2020-04-30] MEDS: Nystatin TOP POWDER 15 GM BTL TOPICAL SCH ×2 (10:01→20:46)
[2020-04-30] MEDS ORDERED: Saline NASAL SPRAY 0.65% BTL BOTH NARES PRN (11:52)
[2020-04-30] MEDS: Enoxaparin 40 MG/0.4 ML SYR SUBCUT SCH (14:02)
[2020-04-30 15:51] LABS: Hematocrit 27 % (35-47); Hemoglobin 9.1 g/dL (12.0-16.0)
[2020-04-30 17:05] LABS: Hepatitis C Antibody Negative (Negative)
[2020-04-30] MEDS: Senna TAB 8.6 mg TAB PO PRN (17:55)
[2020-04-30] MEDS: ceFAZolin 2 GM in NS 100 MLS Q8H (Pharmacy Admix) IVPB SCH (21:25)
[2020-05-01] MEDS: ceFAZolin 2 GM in NS 100 MLS Q8H (Pharmacy Admix) IVPB SCH ×2 (05:46→14:23)
[2020-05-01 09:42] LABS: Hepatitis B Surface Antigen Nonreactive (Nonreactive)
[2020-05-01] MEDS: Insulin GLARGINE 100 un/ml 10 ml VIAL SUBCUT SCH (09:44)
[2020-05-01] MEDS: Nystatin TOP POWDER 15 GM BTL TOPICAL SCH (14:06)
[2020-05-01] MEDS: Enoxaparin 40 MG/0.4 ML SYR SUBCUT SCH (14:23)
[2020-05-01] MEDS: Senna TAB 8.6 mg TAB PO PRN (20:15)
[2020-05-01] MEDS: ceFAZolin 2 GM PREMIX 2 GM/50 ML BAG IVPB SCH (23:34)
[2020-05-02] MEDS: ceFAZolin 2 GM PREMIX 2 GM/50 ML BAG IVPB SCH ×2 (05:17→14:06)
[2020-05-02] MEDS: Insulin GLARGINE 100 un/ml 10 ml VIAL SUBCUT SCH (08:50)
[2020-05-02] MEDS: Enoxaparin 40 MG/0.4 ML SYR SUBCUT SCH (14:05)
[2020-05-02 15:01] VITALS: BP 128/88
== END 2020-05-02 17:10 | disposition home or self-care (01) | DRG 623 ==
LOC: MED 10:01
PROVIDERS: ADMIT Internal Medicine; ATTEND Internal Medicine

== ENCOUNTER 2021-03-19 02:47 | Inpatient (IN) ==
[2021-03-19 04:32] LABS: Urine Appearance Turbid; Urine Bilirubin Negative (Negative); Urine Blood 2+ (Negative); Urine Color Yellow; Urine Glucose 1+(50 mg/dL) (Negative); Urine Ketones Negative (Negative); Urine Nitrite Negative (Negative); Urine Protein 2+(100 mg/dL) (Negative); Urine Specific Gravity 1.011 (1.002-1.030); Urine Urobilinogen Negative (Negative)
[2021-03-19 04:55] LABS: Hematocrit 30 % (35-47); Hemoglobin 10.1 g/dL (12.0-16.0); Mean Corpuscular HGB Conc 33 g/dL (31-36); Mean Corpuscular Hemoglobin 29 pg (27-31); Mean Corpuscular Volume 87 fL (80-97); Mean Platelet Volume 7.2 fL (7.4-10.4); Platelet Count 362 10^3/uL (150-450); Red Blood Count 3.49 10^6 /uL (3.70-4.87); Red Cell Distribution Width 17 % (10-15); White Blood Count 8.1 10^3/uL (3.5-10.8)
[2021-03-19 04:58] LABS: Urine Bacteria Absent (Absent); Urine Red Blood Cell 3+(>10/hpf) (Absent); Urine White Blood Cell 3+(>20/hpf) (Absent)
[2021-03-19 05:13] LABS: ALT 9 U/L (7-52); AST 9 U/L (13-39); Albumin 3.2 g/dL (3.2-5.2); Albumin/Globulin Ratio 0.8 (1-3); Alkaline Phosphatase 109 U/L (35-149); Anion Gap 8 mmol/L (2-11); Blood Urea Nitrogen 44 mg/dL (6-24); C Reactive Protein 85.28 mg/L (<8.01); CO2 Carbon Dioxide 24 mmol/L (22-32); Calcium 10.9 mg/dL (8.6-10.3); Chloride 102 mmol/L (101-111); EGFR Non-African American 41.4 (>60); Glucose 195 mg/dL (70-100); Magnesium 2.2 mg/dL (1.9-2.7); Potassium 4.8 mmol/L (3.5-5.0); Sodium 134 mmol/L (135-145); Total Protein 7.2 g/dL (6.4-8.9)
[2021-03-19 05:23] LABS: Troponin I 0.03 ng/mL (<0.03)
[2021-03-19] MEDS ORDERED: Vancomycin 1,000 MG in NS 0.9% 250 ml 250 ML IVPB SCH (05:41)
[2021-03-19] MEDS ORDERED: Ondansetron 4 mg VIAL 2 MG/ML 2 ml VIAL IV PRN (05:57)
[2021-03-19] MEDS ORDERED: Dextrose 50% Syringe 50 ml 25 GM/50 ML SYRINGE IV PUSH PRN (05:59)
[2021-03-19] MEDS ORDERED: Vancomycin per Pharmacy 1 EA NOTE FOLLOW UP SCH (06:00)
[2021-03-19] MEDS ORDERED: Enoxaparin 40 MG/0.4 ML SYR SUBCUT SCH (06:00)
[2021-03-19] MEDS ORDERED: NS 0.9% 250 ml 250 ML ONE (06:22)
[2021-03-19] MEDS ORDERED: Vancomycin 750 MG in NS 0.9% 250 ML IVPB ONE (06:30)
[2021-03-19 06:41] LABS: Rapid COVID-19 Molecular Undetected (Undetected)
[2021-03-19 08:37] LABS: Troponin I 0.03 ng/mL (<0.03)
[2021-03-19] MEDS: Enoxaparin 30 MG/0.3 ML SYR SUBCUT SCH (09:19)
[2021-03-19] MEDS: NS 0.9% 1000 ml BAG 1,000 ML IV SCH ×2 (09:40→16:15)
[2021-03-19] MEDS: Insulin GLARGINE 100 un/ml 10 ml VIAL SUBCUT SCH (22:23)
[2021-03-20] MEDS: cefTRIAXone 1 gm/50 mL NS BAG 1 GM/50 ML BAG IVPB SCH (05:15)
[2021-03-20 06:59] LABS: ABS Eosinophils 0.1 10^3/ul (0-0.6); ABS Lymphocytes 1.5 10^3/ul (1.0-4.8); ABS Monocytes 0.4 10^3/ul (0-0.8); ABS Neutrophils 4.2 10^3/ul (1.5-7.7); Eosinophil % 1.7 %; Hematocrit 24 % (35-47); Lymphocyte % 23.5 %; Mean Corpuscular HGB Conc 34 g/dL (31-36); Mean Corpuscular Hemoglobin 29 pg (27-31); Mean Corpuscular Volume 86 fL (80-97); Mean Platelet Volume 7.5 fL (7.4-10.4); Platelet Count 285 10^3/uL (150-450); Red Blood Count 2.78 10^6 /uL (3.70-4.87); Red Cell Distribution Width 16 % (10-15); White Blood Count 6.2 10^3/uL (3.5-10.8)
[2021-03-20 07:11] LABS: Calcium 9.7 mg/dL (8.6-10.3); EGFR African American 63.7 (>60); EGFR Non-African American 52.7 (>60); Potassium 4.9 mmol/L (3.5-5.0)
[2021-03-20] MEDS: Enoxaparin 30 MG/0.3 ML SYR SUBCUT SCH (09:35)
[2021-03-20] MEDS: Vancomycin 750 MG in NS 0.9% 250 ML IVPB SCH (09:45)
[2021-03-20] MEDS: NS 0.9% 1000 ml BAG 1,000 ML IV SCH (09:45)
[2021-03-20] MEDS: Insulin GLARGINE 100 un/ml 10 ml VIAL SUBCUT SCH (22:31)
[2021-03-21] MEDS: cefTRIAXone 1 gm/50 mL NS BAG 1 GM/50 ML BAG IVPB SCH (05:39)
[2021-03-21 07:03] LABS: Hematocrit 28 % (35-47); Hemoglobin 9.5 g/dL (12.0-16.0); Mean Corpuscular HGB Conc 34 g/dL (31-36); Mean Corpuscular Hemoglobin 29 pg (27-31); Mean Corpuscular Volume 86 fL (80-97); Mean Platelet Volume 7.1 fL (7.4-10.4); Platelet Count 365 10^3/uL (150-450); Red Blood Count 3.31 10^6 /uL (3.70-4.87); Red Cell Distribution Width 16 % (10-15); White Blood Count 7.1 10^3/uL (3.5-10.8)
[2021-03-21 07:18] LABS: ABS Eosinophils 0.1 10^3/ul (0-0.6); ABS Lymphocytes 1.8 10^3/ul (1.0-4.8); ABS Monocytes 0.7 10^3/ul (0-0.8); ABS Neutrophils 4.6 10^3/ul (1.5-7.7); Lymphocyte % 24.8 %
[2021-03-21] MEDS: Enoxaparin 30 MG/0.3 ML SYR SUBCUT SCH (09:24)
[2021-03-21] MEDS: Vancomycin 750 MG in NS 0.9% 250 ML IVPB SCH (09:25)
[2021-03-21] MEDS ORDERED: Insulin GLARGINE 100 un/ml 10 ml VIAL SUBCUT SCH (21:00)
[2021-03-22] MEDS: cefTRIAXone 1 gm/50 mL NS BAG 1 GM/50 ML BAG IVPB SCH (05:24)
[2021-03-22] MEDS ORDERED: Vancomycin Trough Check NOTE FOLLOW UP ONE (07:30)
[2021-03-22 08:47] LABS: EGFR African American 86.6 (>60); EGFR Non-African American 71.5 (>60)
[2021-03-22 08:49] LABS: Vancomycin Trough 13.3 mcg/mL
[2021-03-22] MEDS: Enoxaparin 30 MG/0.3 ML SYR SUBCUT SCH (09:27)
[2021-03-22] MEDS: Vancomycin 750 MG in NS 0.9% 250 ML IVPB SCH (09:37)
[2021-03-22] MEDS ORDERED: Insulin GLARGINE 100 un/ml 10 ml VIAL SUBCUT SCH (21:00)
[2021-03-22] MEDS: Insulin GLARGINE 100 un/ml 10 ml VIAL SUBCUT SCH (22:07)
[2021-03-23] MEDS: cefTRIAXone 1 gm/50 mL NS BAG 1 GM/50 ML BAG IVPB SCH (05:24)
[2021-03-23] MEDS: Enoxaparin 30 MG/0.3 ML SYR SUBCUT SCH (09:18)
[2021-03-23] MEDS: Vancomycin 750 MG in NS 0.9% 250 ML IVPB SCH (09:18)
[2021-03-23] MEDS: Insulin GLARGINE 100 un/ml 10 ml VIAL SUBCUT SCH (21:57)
[2021-03-24] MEDS: cefTRIAXone 1 gm/50 mL NS BAG 1 GM/50 ML BAG IVPB SCH (05:32)
[2021-03-24] MEDS ORDERED: Vancomycin Trough Check NOTE FOLLOW UP ONE (07:30)
[2021-03-24 07:48] LABS: Hematocrit 23 % (35-47); Hemoglobin 7.7 g/dL (12.0-16.0); Mean Corpuscular HGB Conc 33 g/dL (31-36); Mean Corpuscular Hemoglobin 29 pg (27-31); Mean Corpuscular Volume 86 fL (80-97); Mean Platelet Volume 6.9 fL (7.4-10.4); Platelet Count 357 10^3/uL (150-450); Red Blood Count 2.69 10^6 /uL (3.70-4.87); Red Cell Distribution Width 17 % (10-15); White Blood Count 7.3 10^3/uL (3.5-10.8)
[2021-03-24 07:50] LABS: ABS Eosinophils 0.1 10^3/ul (0-0.6); ABS Lymphocytes 2.2 10^3/ul (1.0-4.8); ABS Monocytes 0.6 10^3/ul (0-0.8); ABS Neutrophils 4.3 10^3/ul (1.5-7.7); Eosinophil % 1.9 %; Lymphocyte % 30.2 %
[2021-03-24 07:59] LABS: EGFR African American 48.7 (>60); EGFR Non-African American 40.3 (>60)
[2021-03-24 08:00] LABS: Anion Gap 7 mmol/L (2-11); Blood Urea Nitrogen 50 mg/dL (6-24); CO2 Carbon Dioxide 22 mmol/L (22-32); Calcium 9.5 mg/dL (8.6-10.3); Chloride 105 mmol/L (101-111); EGFR African American 48.7 (>60); EGFR Non-African American 40.3 (>60); Glucose 79 mg/dL (70-100); Potassium 4.5 mmol/L (3.5-5.0); Sodium 134 mmol/L (135-145)
[2021-03-24 08:25] LABS: Vancomycin Trough 18.7 mcg/mL
[2021-03-24 09:29] LABS: Hematocrit 24 % (35-47); Hemoglobin 7.8 g/dL (12.0-16.0)
[2021-03-24] MEDS: Vancomycin 750 MG in NS 0.9% 250 ML IVPB SCH (10:04)
[2021-03-24] MEDS ORDERED: D5NS 0.9% 1000 ml BAG 1,000 ML IV SCH (11:00)
[2021-03-24] MEDS ORDERED: Naloxone 0.4 mg VIAL 0.4 mg/ml 1 ml VIAL ONE (14:47)
[2021-03-24] MEDS ORDERED: Midazolam 5 mg/5 ml VIAL 1 mg/ml 5 ml VIAL (5 mg) ONE (14:47)
[2021-03-24] MEDS ORDERED: fentaNYL 100 mcg/2 ml 50 MCG/ML VIAL ONE (14:47)
[2021-03-24] MEDS ORDERED: Flumazenil 0.5 mg/5 ml 0.1 MG/ML 5 ml VIAL ONE (14:47)
[2021-03-24] MEDS: Vancomycin 500 MG in NS 0.9% 250 ML IVPB SCH (17:15)
[2021-03-24 22:07] LABS: % Iron Saturation 15 % (15-55); Iron 38 ug/dL (50-212); Total Iron Binding Capacity 252 mcg/dL (250-450); Transferrin 180 mg/dL (203-362); Unsaturated Iron Binding < 237 ug/dL
[2021-03-24] MEDS: Insulin GLARGINE 100 un/ml 10 ml VIAL SUBCUT SCH (22:24)
[2021-03-24 22:28] LABS: Ferritin 246.6 ng/mL (11-307)
[2021-03-25] MEDS ORDERED: Dextrose 50% Syringe 50 ml 25 GM/50 ML SYRINGE IV PUSH PRN (02:03)
[2021-03-25] MEDS: cefTRIAXone 1 gm/50 mL NS BAG 1 GM/50 ML BAG IVPB SCH (05:40)
[2021-03-25 07:33] LABS: Rapid COVID-19 Molecular Undetected (Undetected)
[2021-03-25 07:54] LABS: Hematocrit 23 % (35-47); Hemoglobin 7.6 g/dL (12.0-16.0); Mean Corpuscular HGB Conc 33 g/dL (31-36); Mean Corpuscular Hemoglobin 29 pg (27-31); Mean Corpuscular Volume 87 fL (80-97); Mean Platelet Volume 6.7 fL (7.4-10.4); Platelet Count 376 10^3/uL (150-450); Red Blood Count 2.68 10^6 /uL (3.70-4.87); Red Cell Distribution Width 17 % (10-15); White Blood Count 7.2 10^3/uL (3.5-10.8)
[2021-03-25 08:04] LABS: Calcium 9.4 mg/dL (8.6-10.3); Potassium 4.5 mmol/L (3.5-5.0)
[2021-03-25] MEDS: Vancomycin 500 MG in NS 0.9% 250 ML IVPB SCH (15:27)
[2021-03-26 01:56] LABS: Hematocrit 27 % (35-47); Hemoglobin 8.9 g/dL (12.0-16.0)
[2021-03-26] MEDS ORDERED: Insulin GLARGINE 100 un/ml 10 ml VIAL SUBCUT SCH (09:00)
[2021-03-26] MEDS: Vancomycin 500 MG in NS 0.9% 250 ML IVPB SCH (14:50)
[2021-03-26 15:42] VITALS: BP 156/64
[2021-03-27] MEDS ORDERED: Vancomycin Trough Check NOTE FOLLOW UP ONE (14:30)
== END 2021-03-26 18:39 | disposition home or self-care (01) | DRG 699 ==
LOC: ED 02:47 → SUATTDRO 05:57 → EDHOLD 05:57 → MED 15:11 → MEDTELE 03-23 22:31
PROVIDERS: ADMIT Student in an Organized Health Care Education/Training Program; ATTEND Internal Medicine